=== PATIENT | female | born 1985 | race Caucasian/White ===

== ENCOUNTER 2018-03-01 11:19 | Emergency (ER) | payer OTHER ==
[~2018-03-01] VITALS: Ht 165.1 cm; Wt 68.0 kg
[~2018-03-01 11:19] MED LIST: ADVAIR; ALBU90OI INH; ALBU90OI61 INH; AMOX500 PO; ANTOXYBENA BOTHEARS; AZIT250 PO; Amoxicillin500 MG PO; BENZ100A PO; BUPR75 PO; BUSP10 PO; BUSP15 PO; Bactrim Ds Tab1 EACH PO; CEPH500 PO; CITA20 PO; CLON1 PO; CYCL10 PO; DULO30 PO; EPIN.3I IM; EPIPEN 2-P0.3 MG/0.3 IJ; ESCI20 PO; FLUSAL2505 INH; GUAI600T33 PO; HYDACE5 PO; HYDHCL25 PO; IBUP800 PO; KETO10 PO; LEVSOD50 PO; LEVSOD75 PO; NAPR500 PO; NICO14TP TOP; Naprosyn500 MG PO; Norco 5-325 Ta1 EACH PO; PRED10 PO; PROCODE120 PO; PROM25 PO; PSEU120ER PO; Prilosec Otc20 MG PO; Pyridium200 MG PO; QUET100 PO; RXCODGUASY PO; RXPROM25 PO; SPACE CHAMBER1 EACH MC; THYR60 PO; Ultram50 MG PO; VARE1 PO; VICODIN 5-3001 EACH PO; ZOLP10 PO; Zithromax250 MG PO
== END 2018-03-01 12:12 | disposition home or self-care (01) ==
LOC: ER 11:19
DX: M79.661 Pain in right lower leg (principal); F17.210 Nicotine dependence, cigarettes, uncomplicated; Z91.030 Bee allergy status; Z88.5 Allergy status to narcotic agent; Z79.899 Other long term (current) drug therapy
CPT/HCPCS: 93971; 99284

== ENCOUNTER 2018-09-24 13:11 | Emergency (ER) | payer OTHER ==
[~2018-09-24] VITALS: Ht 162.6 cm; Wt 77.1 kg
[2018-09-24] MEDS ORDERED: Norco 5-325 Ta1 EACH PO (15:50)
== END 2018-09-24 16:03 | disposition home or self-care (01) ==
LOC: ER 13:11
DX: J11.1 Influenza due to unidentified influenza virus with other respiratory manifestations (principal); J45.909 Unspecified asthma, uncomplicated; F41.9 Anxiety disorder, unspecified; F17.210 Nicotine dependence, cigarettes, uncomplicated
CPT/HCPCS: 71046; 99283-25

== ENCOUNTER → 2019-06-19 | Outpatient (CLI) | payer OTHER | END | disposition home or self-care (01) | LOC: LAB EV 09:38 → LAB SHORT 09:38 | DX: K13.70 Unspecified lesions of oral mucosa (principal) | CPT/HCPCS: 87529 ==

== ENCOUNTER → 2020-02-03 | Outpatient (CLI) | payer OTHER ==
[2020-02-04 11:10] LABS: Candida species (DNA Probe) Negative (NEGATIVE); G. vaginalis (DNA Probe) Negative (NEGATIVE); T. vaginalis (DNA Probe) Negative (NEGATIVE)
[2020-02-05 15:07] LABS: HPV 16 Negative (Negative); HPV 18 Negative (Negative); HPV OTHER HR TYPES Negative (Negative)
== END ==
LOC: LAB SHORT 10:50 → LAB 10:50
PROVIDERS: Internal Medicine
DX: Z01.419 Encounter for gynecological examination (general) (routine) without abnormal findings (principal)
CPT/HCPCS: 87480; 87510; 87660

== ENCOUNTER 2020-03-07 11:40 | Emergency (ER) | payer OTHER ==
[~2020-03-07] VITALS: Ht 160 cm; Wt 90.7 kg
[2020-03-07 12:07] LABS: BASOPHILS ABSOLUTE AUTO 0.07 K/mm3 (0.00-0.23); BASOPHILS PERCENT AUTO 1 % (0-2); EOSINOPHILS PERCENT AUTO 0 % (0-6); Hematocrit 42.2 % (33.0-51.0); Hemoglobin 13.8 g/dL (11.5-16.0); IMMATURE GRAN ABSOLUTE AUTO 0.02 K/mm3 (0.00-0.10); IMMATURE GRAN PERCENT AUTO 0 % (0-1); LYMPHOCYTES ABSOLUTE AUTO 4.22 K/mm3 (0.84-5.20); LYMPHOCYTES PERCENT AUTO 38 % (21-46); MONOCYTES ABSOLUTE AUTO 1.22 K/mm3 (0.16-1.47); MONOCYTES PERCENT AUTO 11 % (4-13); Mean Corpuscular HGB 31.4 pg (26.0-34.0); Mean Corpuscular HGB Conc 32.7 g/dL (31.5-36.5); Mean Corpuscular Volume 96 fL (80-100); NEUTROPHILS ABSOLUTE AUTO 5.71 K/mm3 (1.96-9.15); NEUTROPHILS PERCENT AUTO 51 % (41-73); Platelet Count 145 K/mm3 (150-400); RDW Standard Deviation 46.2 fL (35.1-46.3); White Blood Cell Count 11.24 K/mm3 (4.00-11.30)
[2020-03-07 12:08] LABS: Mean Platelet Volume 13.3 fL (9.1-12.4)
[2020-03-07 12:22] LABS: Source, Urine Clean Catch
[2020-03-07 12:25] LABS: Alanine Aminotransfer (ALT/SGP 58 U/L (12-78); Alk Phos 111 U/L (50-136); Anion Gap 5 mmol/L (6-16); Aspartate Aminotrans (AST/SGOT 35 U/L (12-37); Bilirubin, Total 0.4 mg/dL (0.1-1.0); Blood Urea Nitrogen 13 mg/dL (8-24); CO2, Blood 25 mmol/L (21-32); Calcium, Blood 8.4 mg/dL (8.5-10.1); Chloride, Blood 107 mmol/L (98-108); Creatinine, Blood 0.65 mg/dL (0.40-1.00); Glomerular Filtration Rate >60 (60-); Glucose, Blood 122 mg/dL (70-99); Potassium, Blood 3.9 mmol/L (3.5-5.5); Sodium, Blood 137 mmol/L (136-145)
[2020-03-07 12:48] LABS: Appearance, Urine Hazy (Clear); Bilirubin, Urine Neg (Neg); Blood, Urine Trace (Neg); Color, Urine Yellow (P-Yellow); Glucose Qualitative, Urine 1+ (Neg); Ketones, Urine Neg (Neg); Leukocyte Esterase, Urine Neg (Neg); Nitrite, Urine Neg (Neg); Protein, Urine Trace (Neg); Urobilinogen, Urine NORM (Normal)
[2020-03-07 12:50] LABS: Bacteria Many /hpf; Red Blood Cells, Urine 0-2 /hpf (0-2); Squamous Epithelial Cells Many /hpf (Few); White Blood Cells, Urine 0-2 /hpf (0-5)
[2020-03-07] MEDS ORDERED: ONDA4ODT MM (13:16)
[2020-03-07] MEDS ORDERED: IBUP800 PO (13:16)
== END 2020-03-07 13:24 | disposition home or self-care (01) ==
LOC: ER 11:40
PROVIDERS: Emergency Medicine; Physician Assistant
DX: R10.13 Epigastric pain (principal); F17.210 Nicotine dependence, cigarettes, uncomplicated; Z91.030 Bee allergy status; Z88.5 Allergy status to narcotic agent; Z88.8 Allergy status to other drugs, medicaments and biological substances; Z79.899 Other long term (current) drug therapy
CPT/HCPCS: 36415; 74177; 80053; 81001; 83690; 85025; 87086; 96374-59; 96375-59; 99284-25; J1885; J2405; Q9967

== ENCOUNTER 2023-01-04 07:21 | Emergency (ER) | payer OTHER ==
[~2023-01-04] VITALS: Ht 162.6 cm; Wt 68.0 kg
[~2023-01-04 07:21] MED LIST changes: +CLOBET30L TOP; +FLUC150A PO; +ONDA4ODT MM
[2023-01-04] MEDS ORDERED: ONDA4ODT MM (08:32)
[2023-01-04] MEDS ORDERED: IBUP600 PO (08:32)
[2023-01-04] MEDS ORDERED: KETO15TC TOP (08:45)
[2023-01-04 09:01] VITALS: BP 128/100
== END 2023-01-04 08:54 | disposition home or self-care (01) ==
LOC: ER 07:21
DX: J02.9 Acute pharyngitis, unspecified (principal); L30.4 Erythema intertrigo; B37.2 Candidiasis of skin and nail; F17.210 Nicotine dependence, cigarettes, uncomplicated
CPT/HCPCS: 99283; A9270; J1100

== ENCOUNTER 2023-09-27 13:27 | Emergency (ER) | payer OTHER ==
[~2023-09-27] VITALS: Ht 162.6 cm; Wt 68.0 kg
[~2023-09-27 13:27] MED LIST changes: +IBUP600 PO; +KETO15TC TOP
[2023-09-27 13:33] VITALS: BP 135/94
[2023-09-27] MEDS ORDERED: IBUP600 PO (15:21)
== END 2023-09-27 15:26 | disposition home or self-care (01) ==
LOC: ER 13:27
DX: S40.021A Contusion of right upper arm, initial encounter (principal); F17.210 Nicotine dependence, cigarettes, uncomplicated; Z88.5 Allergy status to narcotic agent; Z88.8 Allergy status to other drugs, medicaments and biological substances; Z91.030 Bee allergy status; W22.01XA Walked into wall, initial encounter; Y93.02 Activity, running
CPT/HCPCS: 73060; 99283-25; A9270

== ENCOUNTER 2023-10-14 21:38 | Inpatient (IN) | payer OTHER ==
[~2023-10-14] VITALS: Ht 157.5 cm; Wt 60.8 kg
[~2023-10-14 21:38] MED LIST changes: +Enoxaparin 40 MG/0.4 ML SYR SC SCH
[2023-10-14 22:05] LABS: Calcium, Ionized (POC) 1.28 mmol/L (1.10-1.46); Chloride (POC) 111 mmol/L (98-108); Creatinine (POC) 0.7 mg/dL (0.6-1.0); Glucose (ISTAT POC) >700 mg/dL (70-99); Hemoglobin (POC) 12.6 g/dL (12.0-16.0); Potassium (POC) 5.8 mmol/L (3.5-5.5); Sodium (POC) 135 mmol/L (135-148); Total CO2 (POC) 7 mmol/L (21-32)
[2023-10-14] MEDS ORDERED: Lactated Ringer's 1,000 ML IV ONE (22:05)
[2023-10-14] MEDS ORDERED: Insulin Human Regular 100 UNIT in NS 100 ML IV SCH (22:05)
[2023-10-14 22:08] LABS: Base Excess Venous -28.6 mmol/L; Bicarbonate Venous 6.3 mmol/L (24.0-30.0); PCO2 Venous 19.7 mmHg (38-42); pH Blood Venous 6.92 (7.34-7.37)
[2023-10-14 22:10] LABS: Source, Urine Foley catheter
[2023-10-14 22:15] LABS: Bilirubin, Urine Neg (Neg); Blood, Urine 1+ (Neg); Glucose Qualitative, Urine 4+ (Neg); Ketones, Urine 4+ (Neg); Leukocyte Esterase, Urine Neg (Neg); Nitrite, Urine Neg (Neg); Protein, Urine 2+ (Neg); Specific Gravity, Urine 1.015 (1.003-1.022); Urobilinogen, Urine NORM (Normal)
[2023-10-14 22:15] LABS: Hematocrit 39.2 % (33.0-51.0); Hemoglobin 12.1 g/dL (11.5-16.0); Mean Corpuscular HGB 32.1 pg (26.0-34.0); Mean Corpuscular HGB Conc 30.9 g/dL (31.5-36.5); Mean Corpuscular Volume 104 fL (80-100); Mean Platelet Volume 13.9 fL (9.1-12.4); Platelet Count 232 K/mm3 (150-400); RDW Standard Deviation 49.5 fL (35.1-46.3); Red Blood Cell Count 3.77 M/mm3 (3.80-5.20); White Blood Cell Count 24.41 K/mm3 (4.00-11.30)
[2023-10-14 22:24] LABS: Appearance, Urine Clear (Clear); Color, Urine Pale Yellow (P-Yellow)
[2023-10-14 22:32] LABS: Amorphous Light (0-Heavy); Bacteria Rare /hpf; Red Blood Cells, Urine 0-2 /hpf (0-2); Squamous Epithelial Cells Few /hpf (Few); White Blood Cells, Urine Not Seen /hpf (0-5)
[2023-10-14 22:34] LABS: BAND PERCENT MAN 22 % (0-8); BASOPHILS PERCENT MAN 0 % (0-2); EOSINOPHILS PERCENT MAN 0 % (0-6); LYMPHOCYTES ABSOLUTE MAN 1.95 K/mm3 (0.84-5.20); LYMPHOCYTES PERCENT MAN 8 % (21-46); MONOCYTES ABSOLUTE MAN 1.95 K/mm3 (0.16-1.47); MONOCYTES PERCENT MAN 8 % (4-13); SEG NEUTROPHILS PERCENT MAN 62 % (41-73); TOTAL CELLS COUNTED 100
[2023-10-14 23:14] LABS: Albumin/Globulin Ratio 0.6 (0.8-1.8); Beta-hydroxybutyrate 104.9 mg/dL (0.2-2.8); Bilirubin, Total 0.5 mg/dL (0.1-1.0); Bun/Creatinine Ratio 22.5 (12.0-20.0); Calcium, Blood 9.6 mg/dL (8.5-10.1); Creatinine, Blood 0.85 mg/dL (0.40-1.00); Globulin, Blood 5.1 g/dL (2.2-4.0); Potassium, Blood 4.9 mmol/L (3.5-5.5); Total Protein, Blood 8.1 g/dL (6.4-8.2)
[2023-10-14] MEDS ORDERED: Ondansetron HCl 2 MG / ML 2ML Vial IV PRN (23:45)
[2023-10-14] MEDS ORDERED: FLU VACC QS2023-24(6MOS UP)/PF 60 MCG/0.5 ML SYRINGE IM ONE (23:50)
[2023-10-14] MEDS ORDERED: Sodium Bicarb 8.4% Inj 100 MEQ in Sodium Chloride 0.45% 1,000 ML IV SCH (23:55)
[2023-10-15] VITALS (51 sets, daily range): BP systolic 83–146; BP diastolic 53–90
[2023-10-15 00:07] LABS: Bun/Creatinine Ratio 23.7 (12.0-20.0); Calcium, Blood 9.7 mg/dL (8.5-10.1); Creatinine, Blood 0.76 mg/dL (0.40-1.00); Potassium, Blood 4.3 mmol/L (3.5-5.5)
--- NOTE | 2023-10-15 00:30 | NUR ---
CARE ASSUMPTION PT ARRIVED FROM ER AND WAS TRANSFERED TO ICU BED BY STAFF. UPON ARRIVAL PT IS MINIMALLY RESPONSIVE MUMBLING IN RESPONSE TO QUESTIONS AND ONLY BRIEFLY OPENING HER EYES. MONITOR SHOWING ST 140. BP WNL AND STABLE. PT AFEBRILE. INSULIN GTT INFUSING. PT HAS VERY EXCORIATED JEFFRY-AREA AND BUTTOCKS, PICS TAKEN AND CREAM APPLIED. K[place]ALLS RESP NOTED W CLEAR LS. CARE ASSUMED AT THIS TIME.
[2023-10-15] MEDS ORDERED: Sodium Bicarb 8.4% 1 MEQ/ML 50 ML Vial IV ONE (00:35)
[2023-10-15] MEDS ORDERED: Insulin Human Regular 100 UNIT in NS 100 ML IV SCH (00:35)
[2023-10-15] MEDS ORDERED: Enoxaparin 40 MG/0.4 ML SYR SC SCH (01:44)
[2023-10-15] MEDS ORDERED: NS 250 ML IV PRN (01:50)
[2023-10-15 02:09] LABS: Glucose, Blood 655 mg/dL (70-99)
[2023-10-15 04:45] LABS: U Amphetamine Screen Not Detected; U Barbituate Screen Not Detected; U Benzodiazapine Screen Not Detected; U Buprenorphine Screen Not Detected; U Cannabinoids Screen Not Detected; U Cocaine Screen Not Detected; U Methadone Screen Not Detected; U Methamphetamine Screen Not Detected; U Opiates Screen Not Detected; U Oxycodone Screen Not Detected; U Phencyclidine Screen Not Detected
--- NOTE | 2023-10-15 06:25 | NUR ---
SHOTBLAST OPERATOR SUMMARY PT HAS REMAINED VERY DISORIENTED THIS SHIFT BUT HER SPEECH HAS IMPROVED T/O THE NIGHT SHE IS NOW MAKING SENTANCES BUT DOES NOT KNOW WHERE SHE IS OR WHY SHE IS HERE. PT DOES FOLLOW COMMANDS WHEN PROMPTED. PT'S MONITOR SHOWING ST 130'S-140 THIS SHIFT. BP WNL AND STABLE. PT MAINTAINING SPO2 >94% ON RM AIR THIS SHIFT. PT'S CBGS <300 THIS AM AND METABOLIC PANEL SENT TO LAB AND IS CURRENTLY PENDING. INSULIN GTT AT 3 UNITS/HR AND NABICARB RUNNING AT 125 ML/HR. PT NOTED TO HAVE SEVERE EXCORIATION T/O HER JEFFRY-AREA AND BUTTOCK SO ORDER FOR NYASTATIN OBTAINED, PICS IN THE CHART. PT NOTED TO HAVE NO TEETH OR DENTURES ON ARRIVAL. MCCOLLUM PATENT AND DRAINED 2500ML CLEAR YELLOW URINE THIS SHIFT. WILL REPORT TO ONCOMING SUSI
[2023-10-15 06:26] LABS: Hematocrit 31.7 % (33.0-51.0); Hemoglobin 10.9 g/dL (11.5-16.0); Mean Corpuscular HGB 32.4 pg (26.0-34.0); Mean Corpuscular HGB Conc 34.4 g/dL (31.5-36.5); Mean Platelet Volume 12.7 fL (9.1-12.4); Platelet Count 149 K/mm3 (150-400); RDW Coefficient Variation 12.3 % (11.7-14.2); RDW Standard Deviation 42.5 fL (35.1-46.3); Red Blood Cell Count 3.36 M/mm3 (3.80-5.20)
[2023-10-15 06:34] LABS: Mean Corpuscular Volume 94 fL (80-100)
[2023-10-15 07:09] LABS: Albumin, Blood 2.4 g/dL (3.4-5.0); Albumin/Globulin Ratio 0.5 (0.8-1.8); Bilirubin, Total 0.5 mg/dL (0.1-1.0); Bun/Creatinine Ratio 22.2 (12.0-20.0); Calcium, Blood 9.6 mg/dL (8.5-10.1); Creatinine, Blood 0.59 mg/dL (0.40-1.00); Globulin, Blood 4.5 g/dL (2.2-4.0); Potassium, Blood 2.6 mmol/L (3.5-5.5); Total Protein, Blood 6.9 g/dL (6.4-8.2)
[2023-10-15] MEDS ORDERED: Potassium Chloride 40 MEQ in NS 250 ML IV ONE ×3 (07:25→13:55)
--- NOTE | 2023-10-15 08:05 | NUR ---
AM NOTE... ASSUMED CARE OF PT AT 0700. PT WILL OPEN HER EYES WITH VERBAL STIMUILI BUT QUICKLY WILL CLOSE THEM AGAIN. PT MUMBLES WHEN ASKED HER NAME AND . SHE IS IN SINUS TACH IN THE 130'S-140'S BP IS SOFT BUT STABLE WITH MAPS >65. NO EDEMA IS NOTED ON THIS ASSESSMENT. L/S CLEAR T/O DIM IN THE BASES, SHE IS ON RA WITH O2 SATS>92%. BT PRESENT AND HYPOACTIVE, ABD IS TENDER TO PALPATION. MCCOLLUM IS PATENT AND DRAINING YELLOW URINE TO GRAVITY. THE INSULIN DRIP WAS RUNNING AT 3U/HR WITH LAST CBG WAS 233. THE INSULIN DRIP WAS STOPPED PER PROVIDER ORDERS AND 40MEQ OF KCL WAS STARTED. SODIUM BICARB IN 1/2 NS IS RUNNING AT 125MLS/HR. WILL CONTINUE TO MONITOR.
[2023-10-15] MEDS ORDERED: Miconazole Nitrate 2% 85 GM PWD TOP SCH (09:00)
[2023-10-15] MEDS ORDERED: NS KCl 20mEq 1,000 ML IV SCH (09:00)
[2023-10-15 10:15] LABS: Bun/Creatinine Ratio 20.7 (12.0-20.0); Calcium, Blood 9.3 mg/dL (8.5-10.1); Creatinine, Blood 0.63 mg/dL (0.40-1.00); Magnesium, Blood 1.8 mg/dL (1.6-2.4); Potassium, Blood 3.2 mmol/L (3.5-5.5)
[2023-10-15 10:33] LABS: BAND PERCENT MAN 23 % (0-8); BASOPHILS PERCENT MAN 0 % (0-2); EOSINOPHILS PERCENT MAN 0 % (0-6); LYMPHOCYTES ABSOLUTE MAN 0.81 K/mm3 (0.84-5.20); LYMPHOCYTES PERCENT MAN 19 % (21-46); METAMYELOCYTE ABSOLUTE MAN 0.08 K/mm3 (0.00-0.00); METAMYELOCYTE PERCENT MAN 2 % (0-0); MONOCYTES ABSOLUTE MAN 0.25 K/mm3 (0.16-1.47); MONOCYTES PERCENT MAN 6 % (4-13); MYELOCYTE ABSOLUTE MAN 0.04 K/mm3 (0.00-0.00); MYELOCYTE PERCENT MAN 1 % (0-0); NEUTROPHILS ABSOLUTE MAN 3.05 K/mm3 (1.96-9.15); PLASMA CELL ABSOLUTE MAN 0.04 K/mm3 (0.00-0.00); PLASMA CELLS PERCENT MAN 1 % (0-0); SEG NEUTROPHILS PERCENT MAN 48 % (41-73); TOTAL CELLS COUNTED 100
[2023-10-15 10:36] LABS: Base Excess Venous -16.2 mmol/L; Bicarbonate Venous 13.4 mmol/L (24.0-30.0); PCO2 Venous 23.4 mmHg (38-42)
[2023-10-15 10:37] LABS: pH Blood Venous 7.27 (7.34-7.37)
[2023-10-15] MEDS ORDERED: Lactated Ringer's 1,000 ML IV SCH (11:45)
[2023-10-15 12:12] LABS: Base Excess Venous -20.9 mmol/L; Bicarbonate Venous 10.7 mmol/L (24.0-30.0); PCO2 Venous 16.8 mmHg (38-42)
[2023-10-15 12:13] LABS: pH Blood Venous 7.22 (7.34-7.37)
[2023-10-15 12:36] LABS: Albumin, Blood 2.3 g/dL (3.4-5.0); Anion Gap 19 mmol/L (6-16); Blood Urea Nitrogen 14 mg/dL (8-24); CO2, Blood 8 mmol/L (21-32); Calcium, Blood 9.7 mg/dL (8.5-10.1); Chloride, Blood 126 mmol/L (98-108); Creatinine, Blood 0.67 mg/dL (0.40-1.00); Glomerular Filtration Rate 114 (60-); Glucose, Blood 295 mg/dL (70-99); Phosphorus, Blood 1.4 mg/dL (2.5-4.9); Potassium, Blood 3.7 mmol/L (3.5-5.5); Sodium, Blood 153 mmol/L (136-145)
[2023-10-15] MEDS ORDERED: Potassium Phosphate Dibasic 20 MM in Dextrose 5% 500 ML IV SCH (14:50)
[2023-10-15 15:01] LABS: Albumin, Blood 2.2 g/dL (3.4-5.0); Anion Gap 13 mmol/L (6-16); Blood Urea Nitrogen 13 mg/dL (8-24); Bun/Creatinine Ratio 20.1 (12.0-20.0); CO2, Blood 12 mmol/L (21-32); Calcium, Blood 9.7 mg/dL (8.5-10.1); Chloride, Blood 129 mmol/L (98-108); Creatinine, Blood 0.65 mg/dL (0.40-1.00); Glomerular Filtration Rate 115 (60-); Glucose, Blood 243 mg/dL (70-99); Phosphorus, Blood 0.7 mg/dL (2.5-4.9); Potassium, Blood 3.6 mmol/L (3.5-5.5); Sodium, Blood 154 mmol/L (136-145)
[2023-10-15] MEDS ORDERED: D5W-1/2NS 1,000 ML IV SCH (15:35)
[2023-10-15] MEDS ORDERED: CefTRIAXone Sodium 1,000 MG in NS 50 ML IV SCH (16:00)
[2023-10-15] MEDS ORDERED: Azithromycin 500 MG in NS 250 ML IV SCH (16:00)
[2023-10-15] MEDS ORDERED: Fluconazole 100MG/Iso-Sod 50ML 50 ML IV SCH (18:00)
[2023-10-15 18:32] LABS: Anion Gap 10 mmol/L (6-16); Blood Urea Nitrogen 11 mg/dL (8-24); Bun/Creatinine Ratio 17.1 (12.0-20.0); CO2, Blood 15 mmol/L (21-32); Calcium, Blood 9.4 mg/dL (8.5-10.1); Chloride, Blood 127 mmol/L (98-108); Creatinine, Blood 0.64 mg/dL (0.40-1.00); Glomerular Filtration Rate 115 (60-); Glucose, Blood 319 mg/dL (70-99); Phosphorus, Blood 1.5 mg/dL (2.5-4.9); Potassium, Blood 3.6 mmol/L (3.5-5.5); Sodium, Blood 152 mmol/L (136-145)
--- NOTE | 2023-10-15 19:00 | NUR ---
CARE ASSUMPTION DURING BEDSIDE SHIFT REPORT Mat GONG RN THE PT IS LYING IN BED VERY LETHARGIC APPEARING VERY ILL. PT'S MONITOR SHOWING ST 130'S. BP WNL AND STABLE. SPO2 >94% ON RM AIR. PT HAS INSULIN GTT INFUSING AT 7 UNITS/HR, D5 1/2NS INFUSING AT 200ML/HR. K-PHOS INFUSING AND WELL AZITHROMYCIN. PT HAS MCCOLLUM THAT IS PATENT AND DRAINING CLEAR YELLOW URINE. CARE ASSUMED AT THIS TIME.
--- NOTE | 2023-10-15 19:06 | NUR ---
SHIFT SUMMARY... PT CONTINUES TO BE ON THE INSULIN DRIP, IT IS RUNNING AT 7U/HR, D5 1/2 NS IS RUNNING AT 200MLS/HR. PT'S TMAX THIS SHIFT WAS 100.4. SHE WAS TAKEN TO CT FOR A CT R/O PE. SHE WAS STARTED ON ABX PER ORDERS THIS SHIFT. PT CONTINUES TO BE A&O TO SELF AND PLACE BUT SHE KEEPS ASKING TO GO "HAVE A SMOKE" AND WHY SHE CAN'T SMOKE IN HER ROOM. PT EDUCATED ON THIS FACILITIES NO SMOKING POLICY AND THE DANGERS OF SMOKING WITH OXYGEN IN THE ROOM. NO LIGHTERS/VAPES/SMOKES NOTED WITH THE PT OR IN HER BELONGINGS. CHUN IS PATENT AND DRAINING TO GRAVITY. WILL CONTINUE TO MONITOR UNTIL REPORT IS GIVEN TO ONCOMING RN.
[2023-10-15 22:41] LABS: Albumin, Blood 1.9 g/dL (3.4-5.0); Anion Gap 7 mmol/L (6-16); Blood Urea Nitrogen 10 mg/dL (8-24); Bun/Creatinine Ratio 16.6 (12.0-20.0); CO2, Blood 18 mmol/L (21-32); Calcium, Blood 8.7 mg/dL (8.5-10.1); Chloride, Blood 128 mmol/L (98-108); Glomerular Filtration Rate 117 (60-); Glucose, Blood 248 mg/dL (70-99); Phosphorus, Blood 1.7 mg/dL (2.5-4.9); Sodium, Blood 153 mmol/L (136-145)
[2023-10-15] MEDS ORDERED: Ketorolac Tromethamine 30mg Vial IV ONE (22:55)
[2023-10-15] MEDS ORDERED: Sodium Phosphate 20 MM in Dextrose 5% 500 ML IV ONE (23:30)
[2023-10-16] VITALS (21 sets, daily range): BP systolic 89–130; BP diastolic 49–90
--- NOTE | 2023-10-16 00:37 | NUR ---
FEVER PROVIDER CONTACTED REGARDING TEMP OF 101.2 AND ONE TIME DOSE OF TORADOL ORDERED. PT'S TEMP STILL ELEVATED NOW 102.4 FAN AND COLD WASH CLOTHES ON PT WHILE THIS RN WAITS FOR PROVIDER TO RETURN PHONE CALL.
[2023-10-16] MEDS ORDERED: Acetaminophen 325 MG TABLET PO PRN (00:50)
[2023-10-16 02:39] LABS: Albumin, Blood 1.7 g/dL (3.4-5.0); Anion Gap 7 mmol/L (6-16); Blood Urea Nitrogen 10 mg/dL (8-24); Bun/Creatinine Ratio 18.5 (12.0-20.0); CO2, Blood 18 mmol/L (21-32); Calcium, Blood 8.2 mg/dL (8.5-10.1); Chloride, Blood 129 mmol/L (98-108); Creatinine, Blood 0.54 mg/dL (0.40-1.00); Glomerular Filtration Rate 120 (60-); Glucose, Blood 118 mg/dL (70-99); Phosphorus, Blood 2.5 mg/dL (2.5-4.9); Potassium, Blood 3.3 mmol/L (3.5-5.5); Sodium, Blood 154 mmol/L (136-145)
--- NOTE | 2023-10-16 02:58 | NUR ---
0200 LABS PT'S 0200 LABS SHOW K OF 3.3 HOWEVER POTASSIUM CHLORIDE STILL INFUSING.
--- NOTE | 2023-10-16 06:19 | NUR ---
WELDER PRODUCTION LINE ARC SUMMARY PT BEGAN SHIFT LETHARGIC NOT ONLY MUMBLING WORDS BUT THE SHIFT PROGRESSED SHE BECAME FULLY ALERT AND COMMUNICATING APPROPRIATELY. PT REMAINED ON INSULIN GTT W D5 1/2NS INFUSING AT 200ML/HR THIS SHIFT. PT'S 2199 LABS SHOWED LOW K AND PHOS SO PROVIDER CONTACTED WHO ORDERED 60 MEQ K AND 20MM NAPHOS. PT WAS FEBRILE THIS SHIFT W PEAK TEMP OF 102.4 WHICH RESOLVED AFTER SHE RECIEVED TYLENOL. MONITOR SHOWED ST 130'S AT START OF THE SHIFT BUT AFTER HER TEMP WAS BROUGHT DOWN SHE REMAINED ST 100'S. BP TRENDING DOWN THIS SHIFT WHICH HAS BEEN A CONCERN THE PT HAS RECIEVED A SIGNIFICANT AMOUNT OF FLUID THIS SHIFT. SPO2 >92% ON RM AIR. PT'S MCCOLLUM PATENT AND DRAINED 900ML CLEAR YELLOW URINE THIS SHIFT. PT HAD ONE BM THIS SHIFT. WILL REPORT TO MAEGAN GOLDMAN
[2023-10-16 06:31] LABS: Albumin, Blood 1.6 g/dL (3.4-5.0); Anion Gap 6 mmol/L (6-16); Blood Urea Nitrogen 13 mg/dL (8-24); CO2, Blood 17 mmol/L (21-32); Calcium, Blood 7.7 mg/dL (8.5-10.1); Chloride, Blood 127 mmol/L (98-108); Creatinine, Blood 0.57 mg/dL (0.40-1.00); Glomerular Filtration Rate 118 (60-); Glucose, Blood 182 mg/dL (70-99); Phosphorus, Blood 1.9 mg/dL (2.5-4.9); Potassium, Blood 3.6 mmol/L (3.5-5.5); Sodium, Blood 150 mmol/L (136-145)
[2023-10-16] MEDS ORDERED: Potassium Phosphate Dibasic 30 MM in Dextrose 5% 500 ML IV STA (07:02)
--- NOTE | 2023-10-16 07:44 | NUR ---
AM NOTE... ASSUMED CARE OF PT AT 0700. PT IS CURRENTLY A&Ox4, SHE IS UP IN THE BED ON HER PHONE. PLEASENT AND COOPERATIVE WITH CARE AT THIS TIME. SHE IS IN SR IN THE 90'S BP IS SOFT BUT STABLE WITH MAPS>65. SHE IS ON RA WITH O2 SATS>95% L/S CLEAR T/O COARSE ON THE RLL. BT PRESENT AND HYPOACTIVE, PT IS VERY ANXIOUS TO EAT BREAKFAST. HER MOUTH IS NOTED TO HAVE A WHITE FILM OVER HER TONGUE AND HER LIPS ARE DRY AND CRACKED. PROVIDER AWARE AWAITING ORDERS FOR NYSTATIN SWISH/SWALLOW. INSULIN DRIP IS RUNNING AT 5U/HR, D5 1/2NS IS RUNNING AT 200MLS/HR. WILL CONTINUE TO MONITOR.
[2023-10-16] MEDS ORDERED: Thiamine HCl 100 MG Tab PO SCH (08:00)
[2023-10-16] MEDS ORDERED: Folic Acid 1 MG TAB PO SCH (08:00)
[2023-10-16] MEDS ORDERED: Lidocaine 2% Viscous Soln 20 ML,Nystatin 100,000 Unit/ml Susp 20 ML,Mag Hydrox/Al Hydro... MT PRN (08:15)
[2023-10-16] MEDS ORDERED: Insulin Human Lispro 100 Units/ML 3ML Syringe SC SCH ×3 (08:30→21:00)
[2023-10-16] MEDS ORDERED: CefTRIAXone Sodium 2,000 MG in NS 100 ML IV SCH (09:00)
[2023-10-16] MEDS ORDERED: Insulin Glargine-Yfgn 100 Unit/mL 3 ML SYR SC ONE (09:00)
[2023-10-16 10:25] LABS: Albumin, Blood 1.7 g/dL (3.4-5.0); Anion Gap 7 mmol/L (6-16); Blood Urea Nitrogen 14 mg/dL (8-24); Bun/Creatinine Ratio 23.5 (12.0-20.0); CO2, Blood 19 mmol/L (21-32); Chloride, Blood 121 mmol/L (98-108); Glomerular Filtration Rate 117 (60-); Glucose, Blood 302 mg/dL (70-99); Phosphorus, Blood 2.3 mg/dL (2.5-4.9); Potassium, Blood 3.2 mmol/L (3.5-5.5); Sodium, Blood 147 mmol/L (136-145)
[2023-10-16] MEDS ORDERED: Insulin Human Lispro 100 Units/ML 3ML Syringe SC ONE (12:00)
--- NOTE | 2023-10-16 14:15 | NUR ---
Pt. is awake in bed when she welcomes my visit. Pt. is pleasant and mildly unsettled about a new-to-her diabetes diagnosis. Facilitate a life review. Listen with empathy, interest, and a calming presence. Pt. displays evidence of trust in this gun club manager. Considered matters of ritesh and belief. Prayed with Pt. Pt. verbalized gratitude for the spiritual care visit and welcomed this gun club manager to return.
[2023-10-16 14:16] LABS: Albumin, Blood 1.6 g/dL (3.4-5.0); Anion Gap 8 mmol/L (6-16); Blood Urea Nitrogen 17 mg/dL (8-24); Bun/Creatinine Ratio 26.5 (12.0-20.0); CO2, Blood 17 mmol/L (21-32); Calcium, Blood 7.7 mg/dL (8.5-10.1); Chloride, Blood 121 mmol/L (98-108); Creatinine, Blood 0.64 mg/dL (0.40-1.00); Glomerular Filtration Rate 115 (60-); Glucose, Blood 288 mg/dL (70-99); Phosphorus, Blood 1.9 mg/dL (2.5-4.9); Potassium, Blood 3.6 mmol/L (3.5-5.5); Sodium, Blood 146 mmol/L (136-145)
[2023-10-16] MEDS ORDERED: Potassium Phosphate Dibasic 30 MM in Dextrose 5% 500 ML IV ONE (16:00)
--- NOTE | 2023-10-16 18:23 | NUR ---
SHIFT SUMMARY... NO ACUTE NEGATIVE CHANGES NOTED THIS SHIFT. PT'S VS HAVE BEEN STABLE. SHE HAS BEEN OFF THE INSULIN DRIP SINCE 1030. ACHS CBG CHECKS PER ORDERS. THE PT WAS ABLE TO WALK TO THE TOILET AND VOID AFTER HER MCCOLLUM WAS D/C'd WNL. THE PT ALSO HAD A SHOWER TODAY. THIS RN NOTED BLOODY DISCHARGE FROM THE PT'S VAGINAL AREA, PER THE PT SHE THOUGHT SHE STARTED HER PERIOD. THE PT'S FAMILY WAS AT THE BEDSIDE THIS AFTERNOON AND BROUGHT THE PT SOME PERSONAL BELONGINGS. WILL CONTINUE TO MONITOR UNTIL REPORT IS GIVEN TO ONCOMING RN.
[2023-10-16] MEDS ORDERED: Lactobacil 2-S.Thermo-Bifido 1 1 Cap PO SCH (21:00)
[2023-10-16 22:04] LABS: Albumin, Blood 1.7 g/dL (3.4-5.0); Anion Gap 11 mmol/L (6-16); Blood Urea Nitrogen 16 mg/dL (8-24); Bun/Creatinine Ratio 26.8 (12.0-20.0); CO2, Blood 14 mmol/L (21-32); Calcium, Blood 7.7 mg/dL (8.5-10.1); Chloride, Blood 118 mmol/L (98-108); Glomerular Filtration Rate 117 (60-); Glucose, Blood 360 mg/dL (70-99); Phosphorus, Blood 3.2 mg/dL (2.5-4.9); Potassium, Blood 4.4 mmol/L (3.5-5.5); Sodium, Blood 143 mmol/L (136-145)
[2023-10-17 02:50] VITALS: BP 105/59
[2023-10-17 03:06] LABS: Hematocrit 25.7 % (33.0-51.0); Hemoglobin 8.6 g/dL (11.5-16.0); Mean Corpuscular HGB 31.6 pg (26.0-34.0); Mean Corpuscular HGB Conc 33.5 g/dL (31.5-36.5); Mean Corpuscular Volume 95 fL (80-100); Mean Platelet Volume 12.9 fL (9.1-12.4); Platelet Count 123 K/mm3 (150-400); RDW Coefficient Variation 13.8 % (11.7-14.2); RDW Standard Deviation 47.1 fL (35.1-46.3); Red Blood Cell Count 2.72 M/mm3 (3.80-5.20)
[2023-10-17 03:23] LABS: Albumin, Blood 1.7 g/dL (3.4-5.0); Anion Gap 12 mmol/L (6-16); Blood Urea Nitrogen 17 mg/dL (8-24); Bun/Creatinine Ratio 27.7 (12.0-20.0); CO2, Blood 16 mmol/L (21-32); Calcium, Blood 8.1 mg/dL (8.5-10.1); Chloride, Blood 119 mmol/L (98-108); Creatinine, Blood 0.61 mg/dL (0.40-1.00); Glomerular Filtration Rate 117 (60-); Glucose, Blood 305 mg/dL (70-99); Phosphorus, Blood 2.6 mg/dL (2.5-4.9); Potassium, Blood 4.1 mmol/L (3.5-5.5); Sodium, Blood 147 mmol/L (136-145)
[2023-10-17 03:40] LABS: BAND PERCENT MAN 3 % (0-8); BASOPHILS PERCENT MAN 0 % (0-2); EOSINOPHILS PERCENT MAN 0 % (0-6); LYMPHOCYTES PERCENT MAN 25 % (21-46); MONOCYTES PERCENT MAN 4 % (4-13); NEUTROPHILS ABSOLUTE MAN 5.39 K/mm3 (1.96-9.15); SEG NEUTROPHILS PERCENT MAN 68 % (41-73); TOTAL CELLS COUNTED 100
--- NOTE | 2023-10-17 06:41 | NUR ---
NOC SHIFT SUMMARY PT ORIENTED X4, EMOTIONAL AT TIMES AND TEARFUL. STATES SHE WANTS TO GO HOME AND MISSES HER BOYFRIEND AND FAMILY. WEAK BUT STEADY, SBA TO TOILET. VOIDING ADEQUATELY. VSS PER PT TREND. PT STARTED HER PERIOD YESTERDAY PER REPORT AND WEARING A PULL UP BRIEF. TOOK PRN TYLENOL AND APPLIED HEATED BLANKET TO PELVIS FOR CRAMPS. PT REPORTS RELIEF. CBG IN 200S, LOW 300S, HOSPITALIST NOTIFIED AND CHANGED TO [facility] C[facility] FOR BLOOD SUGARS. PT EDUCATED ON DIET AND BLOOD SUGAR CONTROL. RETAINED APPROXIMATELY 50%. WILL BENEFIT FROM FURTHER EDUCATION. WILL PASS ON TO DAY RN
--- NOTE | 2023-10-17 07:00 | NUR ---
ASSUME CARE: I have assumed care of this patient.
[2023-10-17] MEDS ORDERED: Insulin Human Lispro 100 Units/ML 3ML Syringe SC SCH ×4 (07:30→16:30)
[2023-10-17 07:46] VITALS: BP 100/67
[2023-10-17] MEDS ORDERED: Insulin Glargine-Yfgn 100 Unit/mL 3 ML SYR SC SCH ×2 (09:00)
[2023-10-17] MEDS ORDERED: GuaiFENesin 600 MG TabCR PO SCH (09:00)
[2023-10-17] MEDS ORDERED: Nicotine 14 MG PATCH TOP SCH (09:00)
[2023-10-17 11:54] VITALS: BP 109/73
--- NOTE | 2023-10-17 12:08 | NUR ---
EDUCATION: Pt walked through steps of taking her blood sugar. She was assisted in performing the lancet and strip. Pt declined to give herself her own insulin, but was walked through the steps of preparing the insulin pen and administering.
[2023-10-17 12:43] LABS: CHOL/HDL RATIO 9.4; Cholesterol 170 mg/dL (50-200); HDL Cholesterol 18 mg/dL (>39); LDL/HDL RATIO 4.8; Low Density Lipoprotein Chol 86 mg/dL (0-110); Triglycerides 331 mg/dL (30-140); Very Low Density Lipoprot Chol 66 mg/dL (6-28)
[2023-10-17 16:15] VITALS: BP 112/83
[2023-10-17] MEDS ORDERED: Ondansetron HCl 2 MG / ML 2ML Vial ONE (18:19)
[2023-10-17] MEDS ORDERED: Ondansetron HCl 2 MG / ML 2ML Vial IV PRN (18:20)
--- NOTE | 2023-10-17 18:52 | NUR ---
SHIFT SUMMARY: Pt up in room throughout the day. She is plesant, A/O x 4. Pt up to shower with RICE FARMWORKER. She was provided education for taking her blood sugars and administering insulin. RN discussed insulin dosing. Pt requires reinforcement and will need continued support from her family. This RN spoke with case management who will reach out to pt's father regarding follow up support. Pt's PCP clinic in [place] was called and notified that she was in ICU per pt's request. One dose of PRN zofran given for nausea at dinner.
--- NOTE | 2023-10-17 19:54 | NUR ---
ADMIT PT TRANPORTED BY WHEELCHAIR, AMBULATED TO HOSPITAL BED. BELONGINGS AT BEDSIDE. EDUCATED ON FIRE SAFEY AND PREVENTION. CALL LIGHT WITHIN REACH AND BED IN LOWEST POSITION. ORIENTED PT TO ROOM AND CALL LIGHT. RECEIVED REPORT FROM DELONTE ICU NURSE. PT TRANSFERRED FROM ICU-14.
[2023-10-17 20:00] VITALS: BP 107/62
[2023-10-18 03:18] VITALS: BP 129/63
--- NOTE | 2023-10-18 04:30 | NUR ---
PT TRANSFERRED FROM ICU RM 14 THIS SHIFT. PT HAS HISTORY OF DEV DELAY. ALERT AND ORIENTED. CBG 196 AT HS. PT DENIES ANY N/V. DID HAVE SOME PELVIC PAIN DUE TO ABDOMINAL PERIOD CRAMPS. PT IS SBA TO BATHROOM. NO TELE, ROOM AIR. PT CALLS APPROPRAITELY FOR NEEDS. BED KEPT IN LOWEST POSITION WITH CALL LIGHT WITHIN REACH. NO ACUTE EVENTS OVERNIGHT. WILL CONTINUE TO MONITOR UNTIL END OF SHIFT.
[2023-10-18 07:25] VITALS: BP 126/72
[2023-10-18 07:40] LABS: BASOPHILS ABSOLUTE AUTO 0.03 K/mm3 (0.00-0.23); BASOPHILS PERCENT AUTO 1 % (0-2); EOSINOPHILS ABSOLUTE AUTO 0.09 K/mm3 (0.00-0.68); EOSINOPHILS PERCENT AUTO 2 % (0-6); Hematocrit 27.6 % (33.0-51.0); Hemoglobin 9.4 g/dL (11.5-16.0); IMMATURE GRAN ABSOLUTE AUTO 0.14 K/mm3 (0.00-0.10); IMMATURE GRAN PERCENT AUTO 3 % (0-1); LYMPHOCYTES ABSOLUTE AUTO 1.65 K/mm3 (0.84-5.20); LYMPHOCYTES PERCENT AUTO 30 % (21-46); MONOCYTES PERCENT AUTO 9 % (4-13); Mean Corpuscular HGB 32.1 pg (26.0-34.0); Mean Corpuscular HGB Conc 34.1 g/dL (31.5-36.5); Mean Corpuscular Volume 94 fL (80-100); Mean Platelet Volume 12.3 fL (9.1-12.4); NEUTROPHILS ABSOLUTE AUTO 3.19 K/mm3 (1.96-9.15); NEUTROPHILS PERCENT AUTO 57 % (41-73); NRBC ABSOLUTE 0.02 K/mm3 (0.00-0.02); NRBC Auto 0.4 /100 WBC (0.0-0.2); Platelet Count 105 K/mm3 (150-400); RDW Standard Deviation 48.2 fL (35.1-46.3); Red Blood Cell Count 2.93 M/mm3 (3.80-5.20)
[2023-10-18 08:06] LABS: Bun/Creatinine Ratio 23.7 (12.0-20.0); Calcium, Blood 8.1 mg/dL (8.5-10.1); Creatinine, Blood 0.51 mg/dL (0.40-1.00); Potassium, Blood 3.6 mmol/L (3.5-5.5)
[2023-10-18] MEDS ORDERED: Insulin Human Lispro 100 Units/ML 3ML Syringe SC SCH ×2 (08:30→17:30)
[2023-10-18] MEDS ORDERED: Insulin Glargine-Yfgn 100 Unit/mL 3 ML SYR SC SCH (09:00)
[2023-10-18] MEDS ORDERED: Insulin Glargine-Yfgn 100 Unit/mL 3 ML SYR SC ONE (10:00)
[2023-10-18] MEDS ORDERED: GUAI600T33 PO (12:10)
[2023-10-18] MEDS ORDERED: AMOX500 PO (12:10)
[2023-10-18] MEDS ORDERED: INSULANI SC (12:11)
[2023-10-18] MEDS ORDERED: HUMALOG JU100 UNIT/2 SC (12:12)
[2023-10-18] MEDS ORDERED: NYAMYC15 G1 TOP (12:13)
[2023-10-18] MEDS ORDERED: VISBIOME 112.51 EACH PO (12:13)
--- NOTE | 2023-10-18 16:36 | NUR ---
SHIFT SUMMARY PATIENT IS ALERT AND ORIENTED WITH SLIGHT DEVELOPMENTAL DELAY NOTATED. PATIENT HAS HAD NO ACUTE EVENTS THIS SHIFT. VITAL SIGNS REVIEWED. PATIENTS CBG HAS FLUXUATED WITH INCREASING INSULIN DOSES. PATIENT HAS BEEN A STANDBY ASSIST THIS SHIFT. PATIENT HAS COMPLAINED OF PELVIC PAIN RT CRAMPS. PATIENT HAS NOT COMPLAINED OF SOB, NAUSEA OR SOB THIS SHIFT. POSSIBLE DC HOME WITH HOME HEALTH TOMORROW RIDE WAS NOT AVAILABLE TODAY. WILL MONITOR UNTIL SHIFT CHANGE.
[2023-10-18 20:02] VITALS: BP 101/60
--- NOTE | 2023-10-18 21:20 | NUR ---
called doctor to report fever and vitals. left message. awaiting return call
[2023-10-18 21:44] VITALS: BP 118/60
--- NOTE | 2023-10-18 21:57 | NUR ---
DOCTOR AT BEDSIDE CAME TO SEE PT AFTER I CALLED TO REPORT VITALS. BP IMPROVED. FEVER SLIGHTLY IMPROVED. ORDERED TO GIVE TYLENOL AND RE-ASSESS.
[2023-10-18 22:34] VITALS: BP 118/60
[2023-10-18 22:48] VITALS: BP 115/90
--- NOTE | 2023-10-19 03:53 | NUR ---
SHIFT SUMMARY PT A&O X4 WITH HX OF DEVELOPMENTAL DELAY. PT HAD FEVER, DR TO BEDSIDE. ORDERED TO GIVE TYLENOL. EDUCATED PT ON ADA DIET. PT REQUESTING SODA. BOTH DR AND NURSE RECOMMENDED WATER INSTEAD. CBG AT HS 212. PT IS SBA TO BATHROOM. CONTINENT. CALLS APPROPRIATELY FOR NEEDS. BED KEPT IN LOWEST POSITION. WILL CONTINUE TO MONITOR.
[2023-10-19 04:14] VITALS: BP 109/77
[2023-10-19 05:53] LABS: Hematocrit 26.1 % (33.0-51.0); Hemoglobin 8.7 g/dL (11.5-16.0); Mean Corpuscular HGB 31.8 pg (26.0-34.0); Mean Corpuscular HGB Conc 33.3 g/dL (31.5-36.5); Mean Corpuscular Volume 95 fL (80-100); Mean Platelet Volume 12.6 fL (9.1-12.4); NRBC ABSOLUTE 0.04 K/mm3 (0.00-0.02); NRBC Auto 0.5 /100 WBC (0.0-0.2); Platelet Count 129 K/mm3 (150-400); RDW Coefficient Variation 13.8 % (11.7-14.2); RDW Standard Deviation 47.7 fL (35.1-46.3); Red Blood Cell Count 2.74 M/mm3 (3.80-5.20); White Blood Cell Count 8.55 K/mm3 (4.00-11.30)
[2023-10-19 06:13] LABS: Bun/Creatinine Ratio 14.1 (12.0-20.0); Calcium, Blood 8.5 mg/dL (8.5-10.1); Creatinine, Blood 0.5 mg/dL (0.40-1.00); Potassium, Blood 3.2 mmol/L (3.5-5.5)
[2023-10-19 06:18] LABS: BAND PERCENT MAN 8 % (0-8); BASOPHILS PERCENT MAN 0 % (0-2); EOSINOPHILS ABSOLUTE MAN 0.08 K/mm3 (0.00-0.68); EOSINOPHILS PERCENT MAN 1 % (0-6); LYMPHOCYTES ABSOLUTE MAN 2.65 K/mm3 (0.84-5.20); LYMPHOCYTES PERCENT MAN 31 % (21-46); METAMYELOCYTE ABSOLUTE MAN 0.08 K/mm3 (0.00-0.00); METAMYELOCYTE PERCENT MAN 1 % (0-0); MONOCYTES ABSOLUTE MAN 1.45 K/mm3 (0.16-1.47); MONOCYTES PERCENT MAN 17 % (4-13); MYELOCYTE ABSOLUTE MAN 0.08 K/mm3 (0.00-0.00); MYELOCYTE PERCENT MAN 1 % (0-0); NEUTROPHILS ABSOLUTE MAN 4.18 K/mm3 (1.96-9.15); SEG NEUTROPHILS PERCENT MAN 41 % (41-73); TOTAL CELLS COUNTED 100
[2023-10-19] MEDS ORDERED: Potassium Chloride 20 MEQ/15 ML UDC PO ONE ×2 (07:00→16:31)
[2023-10-19 07:17] VITALS: BP 126/80
[2023-10-19] MEDS ORDERED: Ipratropium/Albuterol SulF 2.5-0.5MG/3 ML Amp INH PRN (08:30)
[2023-10-19] MEDS ORDERED: Insulin Human Lispro 100 Units/ML 3ML Syringe SC SCH (08:30)
[2023-10-19] MEDS ORDERED: Insulin Glargine-Yfgn 100 Unit/mL 3 ML SYR SC SCH ×2 (09:00)
[2023-10-19 10:49] LABS: Bun/Creatinine Ratio 14.7 (12.0-20.0); Calcium, Blood 8.5 mg/dL (8.5-10.1); Creatinine, Blood 0.55 mg/dL (0.40-1.00); Potassium, Blood 3.2 mmol/L (3.5-5.5)
[2023-10-19] MEDS ORDERED: Albuterol HFA200 ACT/6.7 GM INH INH PRN (11:05)
[2023-10-19] MEDS ORDERED: ALBU8HFA2 INH (11:07)
[2023-10-19] MEDS ORDERED: Advair Diskus 250-50 INH (11:09)
[2023-10-19] MEDS ORDERED: Ibuprofen 600 MG Tab PO PRN (11:10)
[2023-10-19] MEDS ORDERED: MONT10T PO (11:10)
[2023-10-19] MEDS ORDERED: Mometasone/Formoterol MDI 200/5 mcg 13 GM INH SCH (11:15)
[2023-10-19 11:36] LABS: Percent Saturation 9.6 % (15.0-50.0)
[2023-10-19 15:47] VITALS: BP 101/63
--- NOTE | 2023-10-19 18:15 | NUR ---
SHIFT SUMMARY PATIENT ALERT AND INTERACTIVE. PATIENT ABLE TO AMBULATE IN ROOM INDEPENDENTLY. PATIENT NEEDING A LOT OF SUPPORT AND TEACHING RELATED TO DIABETIC MEDICATIONS, ADMINISTRATION, AND CHECKING BLOOD SUGAR. PATIENT STRUGGLING WITH POKING FINGER, ANXIOUS ABOUT GIVING INJECTIONS, AND UNABLE TO DIAL UP CORRECT DOSE WHEN INSTRUCTED. CONCERNS FOR SAFE ADMINISTRATION WHEN DISCHARGED. DIRECTOR DIGITAL ADVERTISING REQUESTED TO COME AND SPEAK WITH PATIENT. CARE MANAGEMENT ASSISTING WITH DISCHARGE PLAN AND OUTPATIENT SERVICES.
[2023-10-19 19:31] VITALS: BP 110/65
[2023-10-19 19:43] LABS: Bun/Creatinine Ratio 18.1 (12.0-20.0); Calcium, Blood 8.3 mg/dL (8.5-10.1); Creatinine, Blood 0.5 mg/dL (0.40-1.00); Potassium, Blood 3.3 mmol/L (3.5-5.5)
[2023-10-19] MEDS ORDERED: Montelukast Sodium 10 MG Tab PO SCH (21:00)
[2023-10-20 04:39] VITALS: BP 125/60
[2023-10-20 05:13] LABS: Hematocrit 22.8 % (33.0-51.0); Hemoglobin 7.6 g/dL (11.5-16.0); Mean Corpuscular HGB 31.9 pg (26.0-34.0); Mean Corpuscular HGB Conc 33.3 g/dL (31.5-36.5); Mean Corpuscular Volume 96 fL (80-100); Mean Platelet Volume 12.8 fL (9.1-12.4); NRBC ABSOLUTE 0.04 K/mm3 (0.00-0.02); NRBC Auto 0.5 /100 WBC (0.0-0.2); Platelet Count 123 K/mm3 (150-400); RDW Coefficient Variation 13.9 % (11.7-14.2); RDW Standard Deviation 48.4 fL (35.1-46.3); Red Blood Cell Count 2.38 M/mm3 (3.80-5.20); White Blood Cell Count 7.81 K/mm3 (4.00-11.30)
--- NOTE | 2023-10-20 05:23 | NUR ---
SHIFT SUMMARY SHUBHAM WAS ALERT AND FULLY ORIENTED ON ASSESSMENT, AND ABLE TO AMBULATE INDEPENDENTLY IN THE ROOM. PT COMPLAINS OF COUGHING UP THICK WHITE PHLEGM THIS EVENING. PT HAS NO ACUTE EVENTS TONIGHT, AND NO NEW CONCERNS OR WORSENING SYMPTOMS. PT SLEEPING IN BED AT A LOW POSITION WITH THE CALL LIGHT IN REACH WHICH SHE CAN USE APPROPRIATELY.
[2023-10-20 05:44] LABS: BAND PERCENT MAN 6 % (0-8); BASOPHILS PERCENT MAN 0 % (0-2); EOSINOPHILS ABSOLUTE MAN 0.23 K/mm3 (0.00-0.68); EOSINOPHILS PERCENT MAN 3 % (0-6); LYMPHOCYTES ABSOLUTE MAN 2.49 K/mm3 (0.84-5.20); LYMPHOCYTES PERCENT MAN 32 % (21-46); METAMYELOCYTE ABSOLUTE MAN 0.07 K/mm3 (0.00-0.00); METAMYELOCYTE PERCENT MAN 1 % (0-0); MONOCYTES ABSOLUTE MAN 1.17 K/mm3 (0.16-1.47); MONOCYTES PERCENT MAN 15 % (4-13); MYELOCYTE ABSOLUTE MAN 0.15 K/mm3 (0.00-0.00); MYELOCYTE PERCENT MAN 2 % (0-0); NEUTROPHILS ABSOLUTE MAN 3.67 K/mm3 (1.96-9.15); SEG NEUTROPHILS PERCENT MAN 41 % (41-73); TOTAL CELLS COUNTED 100
[2023-10-20 05:48] LABS: Bun/Creatinine Ratio 21.9 (12.0-20.0); Calcium, Blood 8.2 mg/dL (8.5-10.1); Creatinine, Blood 0.46 mg/dL (0.40-1.00); Potassium, Blood 3.3 mmol/L (3.5-5.5)
[2023-10-20 08:04] VITALS: BP 103/69
[2023-10-20] MEDS ORDERED: Citalopram Hydrobromide 20 MG Tab PO SCH (09:00)
[2023-10-20] MEDS ORDERED: Insulin Glargine-Yfgn 100 Unit/mL 3 ML SYR SC SCH (09:00)
[2023-10-20] MEDS ORDERED: Potassium Chloride 20 MEQ TabCR PO ONE (09:00)
[2023-10-20] MEDS ORDERED: Dicyclomine HCl 20 MG Tab PO ONE (12:00)
[2023-10-20] MEDS ORDERED: Furosemide 10 MG / ML 2ML Vial IV ONE (16:00)
[2023-10-20 16:03] VITALS: BP 92/71
[2023-10-20] MEDS ORDERED: Dicyclomine HCl 20 MG Tab PO PRN (18:00)
--- NOTE | 2023-10-20 18:04 | NUR ---
SHIFT SUMMARY PATIENT ALERT AND INTERACTIVE. CONTINUES TO BE ANXIOUS WITH INSULIN DOSING. PATIENT DOING WELL AT CHECKING BLOOD SUGAR. CONTINUES TO HAVE ISSUES WITH DIALING UP CORRECT INSULIN DOSE ON INSULIN PEN AND DOES NOT LIKE INJECTING SELF. SPOKE WITH HOSPITALIST REGARDING CONCERNS. REACHED OUT TO BROTHER AND DID A VIDEO CALL. EDUCATED BROTHER ON HOW TO DIAL UP DOSE AND INJECT INSULIN. BROTHER VERBALIZING UNDERSTANDING AND FEELS CONFIDENT TO HELP SISTER BE SUCCESSFUL IF WRITTEN INSTRUCTIONS SENT HOME FOR SLIDING SCALE AND LONG ACTING INSULIN DOSING. PATIENT CONTINUES TO HAVE ABD PAIN. PATIENT CURRENTLY ON HER MENSTRAL CYCLE. PATIENT TAKEN TO RADIOLOGY FOR CT OF ABD. PATIENT GIVEN A ONE TIME DOSE OF LASIX FOR EDEMA. PATIENT NOTED TO HAVE EXCORIATED SKIN AROUND MOUTH. PATIENT LICKING LIPS AND AREA AROUND HER MOUTH FREQUENTLY ESPECIALLY WHEN SHE IS NERVOUS.
[2023-10-20 19:25] VITALS: BP 108/73
[2023-10-20] MEDS ORDERED: Ferrous Sulfate 325 MG Tab PO SCH (21:30)
[2023-10-21 03:32] VITALS: BP 101/65
--- NOTE | 2023-10-21 04:25 | NUR ---
SHIFT SUMMARY 38 YR F ADMITTED FOR DKA. FULL CODE. NO ACUTE CHANGES THIS SHIFT. PER INSULIN SLIDING SCALE, PT DID NOT REQUIRE INSULIN THIS SHIFT. SHE WAS VERY RELEIVED TO NOT HAVE TO GIVE HERSELF AN INJECTION AND SHE EXPRESSED ANXIETY ABOUT THE LEARNING PROCESS OF IT. EARLY IN THE SHIFT PT STATED THAT SHE VOMITED A SMALL AMOUNT BUT FELT FINE AFTERWARD. NO OTHER C/O NAUSEA OR VOMITING THIS SHIFT. ALSO, NO C/O PAIN OR DISCOMFORT. PT IS INDEPENDANT IN THE ROOM AND IS COOPERATIVE WITH CARE. BED IN LOW POSITION AND CALL LIGHT IN REACH.
[2023-10-21 06:49] LABS: Hematocrit 22.9 % (33.0-51.0); Hemoglobin 7.5 g/dL (11.5-16.0); Mean Corpuscular HGB 31.5 pg (26.0-34.0); Mean Corpuscular HGB Conc 32.8 g/dL (31.5-36.5); Mean Corpuscular Volume 96 fL (80-100); Mean Platelet Volume 12.7 fL (9.1-12.4); NRBC ABSOLUTE 0.03 K/mm3 (0.00-0.02); NRBC Auto 0.4 /100 WBC (0.0-0.2); Platelet Count 154 K/mm3 (150-400); RDW Coefficient Variation 13.7 % (11.7-14.2); RDW Standard Deviation 48.4 fL (35.1-46.3); Red Blood Cell Count 2.38 M/mm3 (3.80-5.20); White Blood Cell Count 8.14 K/mm3 (4.00-11.30)
[2023-10-21 07:02] LABS: Albumin, Blood 1.5 g/dL (3.4-5.0); Albumin/Globulin Ratio 0.3 (0.8-1.8); Bilirubin, Total 0.3 mg/dL (0.1-1.0); Bun/Creatinine Ratio 22.3 (12.0-20.0); Calcium, Blood 8.1 mg/dL (8.5-10.1); Creatinine, Blood 0.54 mg/dL (0.40-1.00); Globulin, Blood 4.5 g/dL (2.2-4.0); Potassium, Blood 3.7 mmol/L (3.5-5.5)
[2023-10-21 07:32] VITALS: BP 91/61
[2023-10-21 07:36] LABS: IMMATURE RETIC FRACTION 23.5 % (2.3-16.0); RETIC HGB EQUIVALENT 27.7 pg (28.20-36.60); RETICULOCYTE ABSOLUTE 0.04 M/mm3 (0.0200-0.1100); RETICULOCYTE COUNT PERCENT 1.74 % (0.50-2.50)
[2023-10-21 07:45] LABS: BAND PERCENT MAN 7 % (0-8); BASOPHILS ABSOLUTE MAN 0.08 K/mm3 (0.00-0.23); BASOPHILS PERCENT MAN 1 % (0-2); EOSINOPHILS ABSOLUTE MAN 0.24 K/mm3 (0.00-0.68); EOSINOPHILS PERCENT MAN 3 % (0-6); LYMPHOCYTES ABSOLUTE MAN 2.93 K/mm3 (0.84-5.20); LYMPHOCYTES PERCENT MAN 36 % (21-46); METAMYELOCYTE ABSOLUTE MAN 0.08 K/mm3 (0.00-0.00); METAMYELOCYTE PERCENT MAN 1 % (0-0); MONOCYTES ABSOLUTE MAN 0.73 K/mm3 (0.16-1.47); MONOCYTES PERCENT MAN 9 % (4-13); MYELOCYTE ABSOLUTE MAN 0.16 K/mm3 (0.00-0.00); MYELOCYTE PERCENT MAN 2 % (0-0); NEUTROPHILS ABSOLUTE MAN 3.74 K/mm3 (1.96-9.15); PLASMA CELL ABSOLUTE MAN 0.16 K/mm3 (0.00-0.00); PLASMA CELLS PERCENT MAN 2 % (0-0); SEG NEUTROPHILS PERCENT MAN 39 % (41-73); TOTAL CELLS COUNTED 100
[2023-10-21] MEDS ORDERED: Insulin Human Lispro 100 Units/ML 3ML Syringe SC SCH (08:30)
[2023-10-21] MEDS ORDERED: Insulin Glargine-Yfgn 100 Unit/mL 3 ML SYR SC SCH (09:00)
[2023-10-21 15:17] VITALS: BP 102/66
[2023-10-21 19:32] VITALS: BP 113/68
--- NOTE | 2023-10-21 19:39 | NUR ---
SHIFT SUMMARY PATIENT ALERT AND INTERACTIVE. PATIENT INDEPENDENT IN THE ROOM. PATIENT STATES THAT HER PERIOD IS ALMOST COMPLETE. PATIENT DENIES ANY PAIN. TOLERATING DIET, NO NAUSEA. VOIDING IN BR. CONTINUES TO STRUGGLE WITH INSULIN INJECTIONS. PATIENT HAS DIFFICULTY SEEING DOSING ON HUMALOG PEN AND DOES NOT LIKE INJECTING SELF. ATTEMPTED TO CONTACT DAD BY VIDEO TO DO INSULIN INJECTION BUT NOT ABLE TO REACH HIM ON VIDEO. DID SPEEK WITH HIM OVER THE PHONE AND REVIEWED PROCESS. BOTH DAD AND BROTHER FEEL IF THE INSTRUCTIONS ARE WRITTEN OUT WELL RELATED TO INSULIN DOSING THEY WILL BE ABLE TO ASSIST ALONG WITH HOME HEALTH AND DIRECTOR OF FIELD SALES ASSISTING.
--- NOTE | 2023-10-22 04:41 | NUR ---
SHIFT SUMMARY. PATIENT IS AOX4. PATIENT CALLS APPROPRIATELY, IS ABLE TO MAKE HER NEEDS KNOWN, ANDIS COOPERATIVE WITH CARE. PATIENT ANXIOUS ABOUT GIVING SELF INSULIN INJECTIONS SHE DOES NOT LIKE NEEDLES, PATIENT REPORTS BEING OKAY WITH DOING BLOOD GLUCOSE CHECKS. PER REPORT PATIENS DAD AND BROTHER FEEL COMFORTABLE WITH FULLY WRITTEN OUT INSTRUCTIONS TO BE ABLE TO HELP WITH HOME HEALTH AND CASE MANAGEMENTS INVOLVEMENT. PATIENT WOULD BENEFIT FROM DIABETES EDUCATION. PATIENT APPEARED OVERWHELMED BY THE NEW DIAGNOSIS AND THE CHANGES SHE WOULD NEED TO TAKE. TALKED BRIEFLY WITH PATIENT SHE WAS TIRED. PATIENT STATES SHE IS EXCITED TO GO HOME. PATIENTS BLOOD SUGAR AT BEDTIME WAS 111, PATIENT HAS SMALL SNACK-DISCUSSED WITH PATIENT SOME S/S OF HYPOGLYCEMIA AND TO CALL IF SHE FEELS OFF OR DIFFERENT. PATIENT IS INDEPENDENT IN ROOM TO THE RESTROOM. PATIENT HAVING SOME DIFFICULTY WITH SEEING SMALL PRINT. BED IS LOCKED IN THE LOWEST POSITION WITH CALL LIGHT IN REACH. NO S/S OF DISTRESS NOTED AT THIS TIME. CARE ONGOING.
[2023-10-22 05:41] LABS: Hematocrit 22.7 % (33.0-51.0); Hemoglobin 7.4 g/dL (11.5-16.0); Mean Corpuscular HGB 31.9 pg (26.0-34.0); Mean Corpuscular HGB Conc 32.6 g/dL (31.5-36.5); Mean Corpuscular Volume 98 fL (80-100); Mean Platelet Volume 12.3 fL (9.1-12.4); NRBC ABSOLUTE 0.03 K/mm3 (0.00-0.02); NRBC Auto 0.3 /100 WBC (0.0-0.2); Platelet Count 204 K/mm3 (150-400); RDW Coefficient Variation 13.6 % (11.7-14.2); RDW Standard Deviation 48.5 fL (35.1-46.3); Red Blood Cell Count 2.32 M/mm3 (3.80-5.20); White Blood Cell Count 9.39 K/mm3 (4.00-11.30)
[2023-10-22 06:05] LABS: BAND PERCENT MAN 4 % (0-8); BASOPHILS PERCENT MAN 0 % (0-2); EOSINOPHILS ABSOLUTE MAN 0.09 K/mm3 (0.00-0.68); EOSINOPHILS PERCENT MAN 1 % (0-6); LYMPHOCYTES % ATYPICAL MANUAL 1 % (0-0); LYMPHOCYTES ABSOLUTE MAN 1.97 K/mm3 (0.84-5.20); LYMPHOCYTES PERCENT MAN 20 % (21-46); METAMYELOCYTE ABSOLUTE MAN 0.18 K/mm3 (0.00-0.00); METAMYELOCYTE PERCENT MAN 2 % (0-0); MONOCYTES ABSOLUTE MAN 0.37 K/mm3 (0.16-1.47); MONOCYTES PERCENT MAN 4 % (4-13); MYELOCYTE ABSOLUTE MAN 0.09 K/mm3 (0.00-0.00); MYELOCYTE PERCENT MAN 1 % (0-0); NEUTROPHILS ABSOLUTE MAN 6.66 K/mm3 (1.96-9.15); SEG NEUTROPHILS PERCENT MAN 67 % (41-73); TOTAL CELLS COUNTED 100
[2023-10-22 06:23] LABS: Bun/Creatinine Ratio 19.6 (12.0-20.0); Calcium, Blood 8.3 mg/dL (8.5-10.1); Creatinine, Blood 0.51 mg/dL (0.40-1.00)
[2023-10-22 07:37] VITALS: BP 107/65
[2023-10-22 15:55] VITALS: BP 103/55
[2023-10-22] MEDS ORDERED: Insulin Human Lispro 100 Units/ML 3ML Syringe SC SCH (17:30)
[2023-10-22] MEDS ORDERED: Insulin Human Lispro 100 Units/ML 3ML Syringe SC ONE (18:15)
--- NOTE | 2023-10-22 18:22 | NUR ---
CALLED DR. HUMPHRIES TO CLARIFY INSULIN ORDER. PT CBG 80. PER MD, HOLD 10 UNITS WITH DINNER AND GIVE 5 UNITS WITH DINNER.
--- NOTE | 2023-10-22 19:33 | NUR ---
PT WILL REQUIRE ONGOING EDUCATION ON DIABETIC DIAGNOSIS AND BS CHECKS AND INSULIN ADMINISTERED. PROVIDED EDUCATION USING TEACH BACK METHOD FOR EVERY INSULIN ADMIN AND BS CHECK. PT UNABLE TO SAFELY ADMINISTER INSULIN AT THIS TIME. ALERT AND ORIENTED X4. DEVELOPMENTAL DELAY. PT LIVES WITH FATHER. FATHER REQUIRES MEDICAL NEEDS WELL. INDEPENDENT IN THE ROOM. TREATED BACK PAIN PER EMAR.
[2023-10-22 19:48] VITALS: BP 111/56
[2023-10-23 05:08] VITALS: BP 96/55
[2023-10-23 05:57] LABS: Hematocrit 23.7 % (33.0-51.0); Hemoglobin 7.7 g/dL (11.5-16.0); Mean Corpuscular HGB 31.7 pg (26.0-34.0); Mean Corpuscular HGB Conc 32.5 g/dL (31.5-36.5); Mean Corpuscular Volume 98 fL (80-100); Mean Platelet Volume 12.2 fL (9.1-12.4); NRBC ABSOLUTE 0.02 K/mm3 (0.00-0.02); NRBC Auto 0.2 /100 WBC (0.0-0.2); Platelet Count 246 K/mm3 (150-400); RDW Coefficient Variation 13.4 % (11.7-14.2); RDW Standard Deviation 47.8 fL (35.1-46.3); Red Blood Cell Count 2.43 M/mm3 (3.80-5.20); White Blood Cell Count 11.68 K/mm3 (4.00-11.30)
--- NOTE | 2023-10-23 06:26 | NUR ---
SHIFT SUMMARY: PT IS ADMITTED FOR DKA AND IS A FULL CODE. IS ALERT AND ABLE TO MAKE NEEDS KNOWN. HAS BEEN INDEPENDENT WHILE IN ROOM. POWERGLIDE TO UPPER LEFT ARE IS PATENT WITH DRESSING THAT IS CDI. ATTEMPTED TO REVIEW HOW TO DO SELF INJECTION AT . SHE SEEMED TO HAVE A HARD TIME TO UNDERSTAND DIFFERENCE BETWEEN BASIL AND SLIDING SCALE DOSING WELL HOW TO HOLD INJECTION PEN IN A MANNER SO THAT SHE DOES NOT DEPRESS THE PLUNGER BY ACCIDENT. WHEN ASKED TO DIAL UP A DOSE OF 15u ON THE PEN SHE DIALED UP 19u AND WAS NOT ABLE TO ACCURATELY READ BACK THE NUMBER 19 OR 20 WITHOUT BEING COACHED. PREVIOUS SHIFT NURSE DID STATE A POSSIBLE DEVELOPMENTAL DELAY.
[2023-10-23 06:41] LABS: BAND PERCENT MAN 2 % (0-8); BASOPHILS PERCENT MAN 0 % (0-2); EOSINOPHILS PERCENT MAN 0 % (0-6); LYMPHOCYTES PERCENT MAN 18 % (21-46); MONOCYTES ABSOLUTE MAN 0.46 K/mm3 (0.16-1.47); MONOCYTES PERCENT MAN 4 % (4-13); NEUTROPHILS ABSOLUTE MAN 9.11 K/mm3 (1.96-9.15); SEG NEUTROPHILS PERCENT MAN 76 % (41-73); TOTAL CELLS COUNTED 100
[2023-10-23 06:42] LABS: Albumin, Blood 1.6 g/dL (3.4-5.0); Albumin/Globulin Ratio 0.3 (0.8-1.8); Bilirubin, Total 0.2 mg/dL (0.1-1.0); Bun/Creatinine Ratio 14.2 (12.0-20.0); Calcium, Blood 8.6 mg/dL (8.5-10.1); Creatinine, Blood 0.57 mg/dL (0.40-1.00); Globulin, Blood 5.1 g/dL (2.2-4.0); Potassium, Blood 3.9 mmol/L (3.5-5.5); Total Protein, Blood 6.7 g/dL (6.4-8.2)
[2023-10-23 07:52] VITALS: BP 115/73
[2023-10-23] MEDS ORDERED: Insulin Glargine-Yfgn 100 Unit/mL 3 ML SYR SC SCH (09:00)
[2023-10-23 16:10] VITALS: BP 103/74
[2023-10-23 17:43] LABS: ISLET CELL CYTOPLASMIC AB, IGG <1:4 (<1:4)
--- NOTE | 2023-10-23 18:41 | NUR ---
SHIFT SUMMARY: PT A/O X 4, FORGETFUL, PLEASANT AND COOPERATIVE WITH CARE. PT IS STANDBY ASSIST WITH IND IN ROOM. ATTEMPTED TO EDUCATE PT ON INSULIN ADMINISTRATION AND READING SLIDING SCALE THROUGHOUT THE DAY TODAY. BETWEEN INSULIN ADMINISTRATIONS PT COULD NOT REMEMBER HOW TO APPLY NEEDLE TO PEN, SHE COULD NOT DIAL CORRECT INSULIN AMOUNT. PT COULD NOT ACCURATELY CHOOSE HER CBG RESULT ON THE SLIDING SCALE. PT WOULD ATTEMPT TO PICK A NUMBER BUT IT WAS NOT ACCURATE. PT COULD NOT REMEMBER HOW TO INJECT THE INSULIN IN PROPER ORDER. PT ATTEMPTED TWICE TO PUSH THE PEN PRIOR TO INJECTING IN HER ABD. PT WAS COOPERATIVE AND EAGER TO LEARN BUT NOT ABLE TO REMEMBER PROPER STEPS FOR INSULIN ADMINISTRATION TODAY. DISCUSSED CONCERNS WITH BUNGY JUMP MASTER AND DR. ZAVALA. PT HAD NO FURTHER COMPLAINTS. PT STILL HAS PRODUCTIVE COUGH WITH WHITE SPUTUM.
[2023-10-23 19:31] VITALS: BP 94/52
[2023-10-24 03:08] VITALS: BP 107/60
[2023-10-24 06:18] LABS: BASOPHILS ABSOLUTE AUTO 0.02 K/mm3 (0.00-0.23); BASOPHILS PERCENT AUTO 0 % (0-2); EOSINOPHILS PERCENT AUTO 0 % (0-6); Hematocrit 21.9 % (33.0-51.0); Hemoglobin 7.1 g/dL (11.5-16.0); IMMATURE GRAN ABSOLUTE AUTO 0.16 K/mm3 (0.00-0.10); IMMATURE GRAN PERCENT AUTO 1 % (0-1); LYMPHOCYTES ABSOLUTE AUTO 1.92 K/mm3 (0.84-5.20); LYMPHOCYTES PERCENT AUTO 17 % (21-46); MONOCYTES ABSOLUTE AUTO 1.15 K/mm3 (0.16-1.47); MONOCYTES PERCENT AUTO 10 % (4-13); Mean Corpuscular HGB 31.8 pg (26.0-34.0); Mean Corpuscular HGB Conc 32.4 g/dL (31.5-36.5); Mean Corpuscular Volume 98 fL (80-100); Mean Platelet Volume 11.8 fL (9.1-12.4); NEUTROPHILS ABSOLUTE AUTO 8.04 K/mm3 (1.96-9.15); NEUTROPHILS PERCENT AUTO 71 % (41-73); NRBC ABSOLUTE 0.02 K/mm3 (0.00-0.02); NRBC Auto 0.2 /100 WBC (0.0-0.2); Platelet Count 227 K/mm3 (150-400); RDW Coefficient Variation 13.5 % (11.7-14.2); RDW Standard Deviation 48.1 fL (35.1-46.3); Red Blood Cell Count 2.23 M/mm3 (3.80-5.20); White Blood Cell Count 11.29 K/mm3 (4.00-11.30)
[2023-10-24 06:42] LABS: Albumin, Blood 1.5 g/dL (3.4-5.0); Anion Gap 3 mmol/L (6-16); Blood Urea Nitrogen 8 mg/dL (8-24); Bun/Creatinine Ratio 14.7 (12.0-20.0); CO2, Blood 28 mmol/L (21-32); Calcium, Blood 8.4 mg/dL (8.5-10.1); Chloride, Blood 106 mmol/L (98-108); Creatinine, Blood 0.55 mg/dL (0.40-1.00); Glomerular Filtration Rate 120 (60-); Glucose, Blood 123 mg/dL (70-99); Phosphorus, Blood 4.5 mg/dL (2.5-4.9); Sodium, Blood 137 mmol/L (136-145)
[2023-10-24 08:03] VITALS: BP 102/68
[2023-10-24 14:31] LABS: Hematocrit 21.8 % (33.0-51.0); Hemoglobin 6.9 g/dL (11.5-16.0)
[2023-10-24 14:59] VITALS: BP 102/68
[2023-10-24 15:15] LABS: IMMATURE RETIC FRACTION 21.5 % (2.3-16.0); RETIC HGB EQUIVALENT 24.4 pg (28.20-36.60); RETICULOCYTE ABSOLUTE 0.0438 M/mm3 (0.0200-0.1100); RETICULOCYTE COUNT PERCENT 2.02 % (0.50-2.50)
[2023-10-24] MEDS ORDERED: Sod Ferric Gluc Complx/Sucrose 125 MG in NS 100 ML IV SCH (16:00)
[2023-10-24 19:31] VITALS: BP 102/52
--- NOTE | 2023-10-24 19:53 | NUR ---
SHIFT SUMMARY PATIENT ALERT AND INTERACTIVE. PATIENT NEEDING ENCOURAGEMENT AND SUPPORT WITH PERFORMING BLOOD GLUCOSE AND INSULIN INJECTIONS. PATIENT NEEDING CUING THROUGH ALL STEPS. PATIENT EASILY FRUSTRATED BUT WILLING TO COMPLETE TASKS. PATIENT HAVING DIFFICULTY VISUALIZING DOSE ON INSULIN PEN. SPOKE WITH AUNT WHO SAYS SHE IS WILLING TO TELETYPEWRITER OPERATOR [employer] FOR TEACHING WHEN NOTIFIED WHERE TO PICK IT UP. PATIENT DOES NOT REMEMBER WHERE SHE WAS TOLD IT WOULD BE AVAILABLE. PATIENT ABLE TO INDEPENDENTLY WALK AROUND THE UNIT WITH STAND BY ASSISTANCE. PATIENT DOES NOT WANT TO TAKE LOVENOX INJECTIONS BUT NEEDS TO BE ENCOURAGED AND ESCORTED WITH AMBULATION. PATIENT COUGHING UP THICK ULRICH SECRETIONS AT TIMES. PATIENT VERBALIZING CHEST SORENESS WITH COUGHING THAT IS RELIEVED WITH TYLENOL. PATIENT HAVING LOW GRADE FEVER THIS AFTERNOON. PATIENT CONTINUES ON ANTIBIOTICS AT THIS TIME.
[2023-10-25] VITALS (15 sets, daily range): BP systolic 94–116; BP diastolic 54–65
[2023-10-25 04:10] LABS: BASOPHILS ABSOLUTE AUTO 0.02 K/mm3 (0.00-0.23); BASOPHILS PERCENT AUTO 0 % (0-2); EOSINOPHILS PERCENT AUTO 0 % (0-6); Hematocrit 20.7 % (33.0-51.0); Hemoglobin 6.7 g/dL (11.5-16.0); IMMATURE GRAN ABSOLUTE AUTO 0.09 K/mm3 (0.00-0.10); IMMATURE GRAN PERCENT AUTO 1 % (0-1); LYMPHOCYTES ABSOLUTE AUTO 1.85 K/mm3 (0.84-5.20); LYMPHOCYTES PERCENT AUTO 19 % (21-46); MONOCYTES PERCENT AUTO 11 % (4-13); Mean Corpuscular HGB 32.1 pg (26.0-34.0); Mean Corpuscular HGB Conc 32.4 g/dL (31.5-36.5); Mean Corpuscular Volume 99 fL (80-100); Mean Platelet Volume 11.5 fL (9.1-12.4); NEUTROPHILS ABSOLUTE AUTO 6.79 K/mm3 (1.96-9.15); NEUTROPHILS PERCENT AUTO 69 % (41-73); Platelet Count 225 K/mm3 (150-400); RDW Coefficient Variation 13.3 % (11.7-14.2); Red Blood Cell Count 2.09 M/mm3 (3.80-5.20); White Blood Cell Count 9.85 K/mm3 (4.00-11.30)
[2023-10-25 04:29] LABS: Albumin, Blood 1.5 g/dL (3.4-5.0); Albumin/Globulin Ratio 0.3 (0.8-1.8); Bilirubin, Total 0.2 mg/dL (0.1-1.0); Bun/Creatinine Ratio 16.1 (12.0-20.0); Calcium, Blood 8.1 mg/dL (8.5-10.1); Creatinine, Blood 0.56 mg/dL (0.40-1.00); Globulin, Blood 5.1 g/dL (2.2-4.0); Potassium, Blood 3.9 mmol/L (3.5-5.5); Total Protein, Blood 6.6 g/dL (6.4-8.2)
[2023-10-25] MEDS ORDERED: NS 250 ML IV SCH (07:25)
[2023-10-25] MEDS ORDERED: NS 250 ML IV PRN (08:05)
--- NOTE | 2023-10-25 11:17 | NUR ---
"Spiritual Care Visit | Staff Request Pt. is awake in bed and welcomes my visit. Pt. is pleasant. Pt. verbalized remembering this chassis driver from a previous visit. Facilitated a more extensive life review. Listen with empathy, interest, and a calming presence. Pt. displayed evidence of trust and matters of ritesh and belief are considered. Prayed with Pt. Pt. verbalized gratitude for the spiritual care visit and welcomed this chassis driver to return."
--- NOTE | 2023-10-25 12:54 | NUR ---
1138 STRT OF BLOOD . LUNGS RT CLEAR, LEFT DIM T/O 1200 LUNGS CLEAR RT, LEFT DIM T/O 1250 LUNGS CLEAR RT, LEFT, DIM LOWER, CLEAR UPPER
--- NOTE | 2023-10-25 14:57 | NUR ---
PRBC FINISHED. LOW LEFT LUNG CONTINUES DIM. BALANCE IS CLEAR. RESP CONTINUE SAME HER BASELINE 16-20. MILD TEMP CONTINUES 0.3 INCREASE. BP SOME BETTER T/O. PT STATES NADER WELL. NO NEW CONCERNS NOTED.
[2023-10-25 16:59] LABS: Hematocrit 25.7 % (33.0-51.0); Hemoglobin 8.3 g/dL (11.5-16.0)
--- NOTE | 2023-10-25 17:13 | NUR ---
CBG [address] THIS AFT. SPOKE TO DR HUMPHRIES. OKAYED CHANGE FLAT 10 U AT MEALS TO FLAT 7. KEEP THE S/S
[2023-10-25] MEDS ORDERED: Insulin Human Lispro 100 Units/ML 3ML Syringe SC SCH (17:30)
--- NOTE | 2023-10-25 18:15 | NUR ---
PT RECEIVED 1 UNIT PRBC. NADER WELL. ALSO HAD AUNT IN TO VISIT. SHE STATE WAS NICE TO VISIT. HAS BEEN ON PHONE TO DIFFERENT PEOPLE TO VISIT TODAY. DID CT OF PELVIS AND ABD TODAY. CBG DOWN TO [address] HUMPHRIES. MOVED FLAT MEAL INSULIN TO 7UNITS. NO OTHER NEW CONCERNS NOTED. BED IN LOW POSITION, CALLITE IN REACH, TRIED EDUCATING ON GIVING INSULIN. HAS A GREAT DIFFICULTY IN MEASURING AND ADMINISTRATION OF INSULIN PIN. NO OTHER CONCERNS NOTED.
[2023-10-26 02:34] VITALS: BP 113/74
[2023-10-26 05:09] LABS: BASOPHILS ABSOLUTE AUTO 0.03 K/mm3 (0.00-0.23); BASOPHILS PERCENT AUTO 0 % (0-2); EOSINOPHILS PERCENT AUTO 0 % (0-6); Hematocrit 23.4 % (33.0-51.0); Hemoglobin 7.6 g/dL (11.5-16.0); IMMATURE GRAN ABSOLUTE AUTO 0.09 K/mm3 (0.00-0.10); IMMATURE GRAN PERCENT AUTO 1 % (0-1); LYMPHOCYTES ABSOLUTE AUTO 1.79 K/mm3 (0.84-5.20); LYMPHOCYTES PERCENT AUTO 17 % (21-46); MONOCYTES ABSOLUTE AUTO 1.33 K/mm3 (0.16-1.47); MONOCYTES PERCENT AUTO 13 % (4-13); Mean Corpuscular HGB 30.5 pg (26.0-34.0); Mean Corpuscular HGB Conc 32.5 g/dL (31.5-36.5); Mean Platelet Volume 11.5 fL (9.1-12.4); NEUTROPHILS ABSOLUTE AUTO 7.03 K/mm3 (1.96-9.15); NEUTROPHILS PERCENT AUTO 68 % (41-73); NRBC ABSOLUTE 0.02 K/mm3 (0.00-0.02); NRBC Auto 0.2 /100 WBC (0.0-0.2); Platelet Count 257 K/mm3 (150-400); RDW Coefficient Variation 16.5 % (11.7-14.2); RDW Standard Deviation 56.7 fL (35.1-46.3); Red Blood Cell Count 2.49 M/mm3 (3.80-5.20); White Blood Cell Count 10.27 K/mm3 (4.00-11.30)
[2023-10-26 05:10] LABS: Mean Corpuscular Volume 94 fL (80-100)
[2023-10-26 05:38] LABS: Bun/Creatinine Ratio 14.8 (12.0-20.0); Calcium, Blood 8.2 mg/dL (8.5-10.1); Creatinine, Blood 0.47 mg/dL (0.40-1.00); Potassium, Blood 4.1 mmol/L (3.5-5.5)
--- NOTE | 2023-10-26 05:41 | NUR ---
SHIFT SUMMARY NOC PT A/O X 4. PLEASANT AND COOPERATIVE WITH CARE. NO ACUTE CHANGES TO REPORT. PT HS CBG 193, AND UPON SPOT CHECK @ 0332 181. PT HAS PG HEMAL THAT DRAWS. PT IS CURRENTLY RESTING WITH BED IN LOWEST POSITION, AND CALL LIGHT WITHIN REACH.
[2023-10-26 07:08] VITALS: BP 107/65
[2023-10-26] MEDS ORDERED: CefTRIAXone 2000 MG Vial ONE (07:48)
[2023-10-26 13:38] LABS: International Normalized Ratio 1.07; Prothrombin Time Results 11.2 Sec (9.7-11.5)
[2023-10-26 15:33] LABS: Body Fluid WBC Count 40 /mm3 (0-999)
[2023-10-26 15:38] LABS: Glucose, Body Fluid 78 mg/dL; Lactate Dehydrogenase, Body Fl 406 U/L; Protein, Body Fluid 4.9 g/dL; Triglycerides, Body Fluid 123 mg/dL
[2023-10-26 15:39] LABS: pH, Body Fluid 6.4
[2023-10-26 15:42] LABS: RBC Count, Body Fluid 52 /mm3 (0-0)
[2023-10-26 16:17] LABS: Appearance, Body Fluid Clear (Clear); Color, Body Fluid Yellow (None-Yellow); Total Cell Count, Body Fluid 100
[2023-10-26 16:37] VITALS: BP 114/66
--- NOTE | 2023-10-26 17:11 | NUR ---
SHIFT SUMMARY PT AOX3-4, PT APPEARS TO HAVE A DEVELOPMENTAL DELAY. PLEASANT AND COOPERATIVE BUT CHILD-LIKE. NO C/O CP,P,N/V,D THIS SHIFT. THORACENTESIS COMPLETED TODAY. PT TOLERATED IT WELL. SPOKE WITH HER FATHER BRIEFLY ON THE PHONE, EXPLAINING THE PROCEDURE. PT RECEIVED A SHOWER TODAY. CALL LIGHT WITHIN REACH, BED IN THE LOWEST POSITION. WILL REPORT TO ONCOMING NURSE.
[2023-10-26 21:29] VITALS: BP 104/66
[2023-10-27 03:51] VITALS: BP 106/70
[2023-10-27 04:52] LABS: BASOPHILS ABSOLUTE AUTO 0.05 K/mm3 (0.00-0.23); BASOPHILS PERCENT AUTO 1 % (0-2); EOSINOPHILS PERCENT AUTO 0 % (0-6); Hematocrit 23.6 % (33.0-51.0); Hemoglobin 7.6 g/dL (11.5-16.0); IMMATURE GRAN ABSOLUTE AUTO 0.06 K/mm3 (0.00-0.10); IMMATURE GRAN PERCENT AUTO 1 % (0-1); LYMPHOCYTES ABSOLUTE AUTO 1.74 K/mm3 (0.84-5.20); LYMPHOCYTES PERCENT AUTO 21 % (21-46); MONOCYTES ABSOLUTE AUTO 1.24 K/mm3 (0.16-1.47); MONOCYTES PERCENT AUTO 15 % (4-13); Mean Corpuscular HGB 30.9 pg (26.0-34.0); Mean Corpuscular HGB Conc 32.2 g/dL (31.5-36.5); Mean Corpuscular Volume 96 fL (80-100); Mean Platelet Volume 11.6 fL (9.1-12.4); NEUTROPHILS ABSOLUTE AUTO 5.12 K/mm3 (1.96-9.15); NEUTROPHILS PERCENT AUTO 62 % (41-73); Platelet Count 260 K/mm3 (150-400); RDW Standard Deviation 55.8 fL (35.1-46.3); Red Blood Cell Count 2.46 M/mm3 (3.80-5.20); White Blood Cell Count 8.21 K/mm3 (4.00-11.30)
[2023-10-27 05:11] LABS: Creatinine, Blood 0.56 mg/dL (0.40-1.00); Potassium, Blood 4.1 mmol/L (3.5-5.5)
--- NOTE | 2023-10-27 05:31 | NUR ---
SHIFT SUMMARY. PATIENT IS ALERT AND ORIENTED X3-4. PATIENT IS PLEASANT AND COOPERATIVE WITH CARE. PATIENT HAS SLEPT WELL THIS SHIFT WITH NO ACUTE EVENTS NOTED. PATIENT REPORTS THAT HER COUGH SEEMED BETTER T/O THE NIGHT; SHE DID NOT COUGH VERY MUCH. PATIENT IS INDEPENDEDNT IN ROOM, CALLS APPROPRIATELY AND IS ABLE TO MAKE HER NEEDS KNOWN. PATIENT WOULD BENEFIT FROM OUTPATIENT DIABETES CARE AND TRAINING/EDUCATION. PATIENT APPEARS TO NO BE SURE ABOUT HOW TO MANAGE HER DIABETES DESPITE TRAINING RECEIVED DURING THIS HOSPITALIZATION. PATIENTS BED IS LOCKED IN LOWEST POSITION WITH CALL LIGHT IN REACH. NO S/S OF DISTRESS NOTED AT THIS TIME. CARE IS ONGOING.
[2023-10-27 07:03] VITALS: BP 113/66
[2023-10-27] MEDS ORDERED: MetroNIDAZOLE 500MG/NS 100 ml 100 ML IV SCH (11:00)
--- NOTE | 2023-10-27 11:58 | NUR ---
1102, THORACENTISIS, NOTHING ASPIRTED, DR HAIRSTON TO CONSULT WITH DR HUMPHRIES, FLUID HAS BECOME GELANTINOUS, PATIENT TOLERATED WELL, CRIED AND REPORTED IT WAS BECAUSE SHE WAS SCARED BUT BOT IN PAIN. CXRAY TO BE DONE, CONTACTED RADIOLOGY, WAITING TO HEAR BACK AND WILL LET DR HAIRSTON KNOW WHEN THE XRAY IS DONE, CALL LIGHT WITH IN REACH, MAKES NEEDS KNOWN
[2023-10-27] MEDS ORDERED: Ferrous Sulfate 325 MG Tab PO SCH (12:10)
[2023-10-27 16:56] VITALS: BP 104/62
--- NOTE | 2023-10-27 19:11 | NUR ---
NO ACUTE CHANGES, PLEASANT AND COOPERATIVE TO CARE, MEDICATED FOR PAIN WITH TYLENOL, VSS, FATHER VISITED TODAY, VERY PROACTIVE IN HER CARE, PATIENT DOING WELL WITH PROGRAMING INSULIN PEN AND ADMINISTERING, CALL LIGHT WITH IN REACH, REPORTED TO PM RN
[2023-10-27 20:20] VITALS: BP 103/83
[2023-10-28 06:22] VITALS: BP 119/67
[2023-10-28 07:18] VITALS: BP 109/74
[2023-10-28] MEDS ORDERED: CefTRIAXone 2000 MG Vial ONE (07:24)
--- NOTE | 2023-10-28 07:27 | NUR ---
SHIFT SUMMARY PT A&O, CALM AND COOPERATIVE WITH CARE. CONTINENT AND INDEPENDENT IN ROOM. HS CBG 177. PG HEMAL LOZANO. PT NEEDS EDUCATION AND TEACHING SURROUNDING NEW DX OF DM. PT HAS HISTORY OF DEV DELAY. PT HAD THORCENTESIS YESTERDAY. BANDAID IN PLACE OVER SIRE ON UPPER BACK. NO ACUTE CHANGES THIS SHIFT. BED KEPT IN LOWEST POSITION WITH CALL LIGHT WITHIN REACH. PT CALLS APPROPRAITELY FOR NEEDS.
[2023-10-28] MEDS ORDERED: Insulin Glargine-Yfgn 100 Unit/mL 3 ML SYR SC SCH (09:00)
[2023-10-28 10:22] LABS: BASOPHILS ABSOLUTE AUTO 0.05 K/mm3 (0.00-0.23); BASOPHILS PERCENT AUTO 1 % (0-2); EOSINOPHILS PERCENT AUTO 0 % (0-6); Hematocrit 24.7 % (33.0-51.0); Hemoglobin 7.8 g/dL (11.5-16.0); IMMATURE GRAN ABSOLUTE AUTO 0.05 K/mm3 (0.00-0.10); IMMATURE GRAN PERCENT AUTO 1 % (0-1); LYMPHOCYTES ABSOLUTE AUTO 1.99 K/mm3 (0.84-5.20); LYMPHOCYTES PERCENT AUTO 24 % (21-46); MONOCYTES ABSOLUTE AUTO 0.92 K/mm3 (0.16-1.47); MONOCYTES PERCENT AUTO 11 % (4-13); Mean Corpuscular HGB 30.4 pg (26.0-34.0); Mean Corpuscular HGB Conc 31.6 g/dL (31.5-36.5); Mean Corpuscular Volume 96 fL (80-100); Mean Platelet Volume 11.3 fL (9.1-12.4); NEUTROPHILS ABSOLUTE AUTO 5.31 K/mm3 (1.96-9.15); NEUTROPHILS PERCENT AUTO 64 % (41-73); Platelet Count 251 K/mm3 (150-400); RDW Coefficient Variation 15.8 % (11.7-14.2); RDW Standard Deviation 54.8 fL (35.1-46.3); Red Blood Cell Count 2.57 M/mm3 (3.80-5.20); White Blood Cell Count 8.32 K/mm3 (4.00-11.30)
[2023-10-28 10:45] LABS: Albumin, Blood 1.6 g/dL (3.4-5.0); Albumin/Globulin Ratio 0.3 (0.8-1.8); Bilirubin, Total 0.3 mg/dL (0.1-1.0); Bun/Creatinine Ratio 23.8 (12.0-20.0); Calcium, Blood 8.7 mg/dL (8.5-10.1); Creatinine, Blood 0.5 mg/dL (0.40-1.00); Globulin, Blood 5.9 g/dL (2.2-4.0); Potassium, Blood 3.9 mmol/L (3.5-5.5); Total Protein, Blood 7.5 g/dL (6.4-8.2)
--- NOTE | 2023-10-28 11:02 | NUR ---
DR ROB ROUNDED, PATIENT PLEASNT AND COOPERATIVE CARE, INDEPEDANT IN ROOM, NO CHANGES TO REPORT, CALL LIGHT WITH IN REACH
[2023-10-28 15:40] VITALS: BP 109/68
--- NOTE | 2023-10-28 18:46 | NUR ---
ALERT AND ORIENTED, PLEASANT TO CARE, ADMINSTERED INSULIN PEN AND TOOK OWN BLOOD GLUCOSE, AMBULATED IN THE HALLS, STEADY GAIT, SHOWERED TODAY, POSSIBLE DISCHARGE HOME TOMORROW, CALL LIGHT WITH IN REACH
[2023-10-28 22:02] VITALS: BP 106/68
[2023-10-29 02:01] VITALS: BP 104/76
[2023-10-29 06:51] LABS: BASOPHILS ABSOLUTE AUTO 0.06 K/mm3 (0.00-0.23); BASOPHILS PERCENT AUTO 1 % (0-2); EOSINOPHILS PERCENT AUTO 0 % (0-6); Hematocrit 24.6 % (33.0-51.0); Hemoglobin 7.9 g/dL (11.5-16.0); IMMATURE GRAN ABSOLUTE AUTO 0.02 K/mm3 (0.00-0.10); IMMATURE GRAN PERCENT AUTO 0 % (0-1); LYMPHOCYTES ABSOLUTE AUTO 1.65 K/mm3 (0.84-5.20); LYMPHOCYTES PERCENT AUTO 23 % (21-46); MONOCYTES ABSOLUTE AUTO 0.93 K/mm3 (0.16-1.47); MONOCYTES PERCENT AUTO 13 % (4-13); Mean Corpuscular HGB 30.7 pg (26.0-34.0); Mean Corpuscular HGB Conc 32.1 g/dL (31.5-36.5); Mean Corpuscular Volume 96 fL (80-100); Mean Platelet Volume 10.8 fL (9.1-12.4); NEUTROPHILS ABSOLUTE AUTO 4.43 K/mm3 (1.96-9.15); NEUTROPHILS PERCENT AUTO 63 % (41-73); Platelet Count 279 K/mm3 (150-400); RDW Coefficient Variation 15.6 % (11.7-14.2); RDW Standard Deviation 54.3 fL (35.1-46.3); Red Blood Cell Count 2.57 M/mm3 (3.80-5.20); White Blood Cell Count 7.09 K/mm3 (4.00-11.30)
[2023-10-29 07:05] LABS: Albumin, Blood 1.6 g/dL (3.4-5.0); Albumin/Globulin Ratio 0.3 (0.8-1.8); Bilirubin, Total 0.2 mg/dL (0.1-1.0); Bun/Creatinine Ratio 28.3 (12.0-20.0); Calcium, Blood 8.4 mg/dL (8.5-10.1); Creatinine, Blood 0.46 mg/dL (0.40-1.00); Globulin, Blood 5.8 g/dL (2.2-4.0); Total Protein, Blood 7.4 g/dL (6.4-8.2)
[2023-10-29 07:07] VITALS: BP 103/64
--- NOTE | 2023-10-29 07:51 | NUR ---
SHIFT SUMMARY PT A&O, PLESANT AND COOPERATIVE WITH CARE. SOFT SPOKEN WITH SLOW SPEECH. PT HAS HX OF DEV DELAY. PT COMPLAINED OF BACK PAIN, MEDICATED PER EMAR. PT STATED EFFECTIVE. HEMAL PG SL. HS CBG 232. PT HAS BEEN WORKING ON HER NEW ADA DIET AND LEARNING HOW TO DO HER OWN BLOOD SUGAR CHECKS AND INSULIN. PT WAS ABLE TO CHECK HER OWN BS WITH MINIMAL QUEING. INSULIN COVERAGE WAS NOT INDICATED SO I DID NOT OBSERVE HER ADMINISTERING. PT RECEIVING SCHEDULED IV ABX. INDEPENDENT IN ROOM. CONTINENT. BED IN LOWEST POSIITON WITH CALL LIGHT WITHIN REACH.
[2023-10-29] MEDS ORDERED: Insulin Human Lispro 100 Units/ML 3ML Syringe SC SCH (08:30)
[2023-10-29] MEDS ORDERED: Insulin Glargine-Yfgn 100 Unit/mL 3 ML SYR SC SCH (09:00)
[2023-10-29 15:32] VITALS: BP 113/63
--- NOTE | 2023-10-29 16:20 | NUR ---
SHIFT SUMMARY A&OX4, COOPERATIVE WITH CARE. DENIED ANY CP/PRESSURE, HEADACHE, DIZZINESS OR SOB. COMPLAINED OF 7/10 PAIN TO UPPER BACK AND NECK. MEDICATED PER EMAR. PATIENT INDEPENDENT AND WENT ON A COUPLE OF WALKS AROUND THE UNIT. NO ACUTE CHANGES THIS SHIFT. CURRENTLY WAITING FOR DINNER. BED IN LOWEST POSITION. CALL LIGHT WITHIN REACH.
--- NOTE | 2023-10-29 16:58 | NUR ---
Pt. is awake in bed and welcomes my visit. Pt. is pleasant and verbalized an update of the visitors she had over the weekend. Pt. verbalized an expectation that she may need to go to a SNF before being discharged home, Considered matters of ritesh and belief. Pt. displays a simple and sweet demeanor. Pt. verbalizes that she enjoys reading her bible at home. This wastewater plant civil engineer offers to provide Pt. with a NT/Psalms, and Pt. accepts the offer. Prayed for Pt. and then provided Pt. with a NT/Psalms. Pt. verbalized gratitude for the spiritual care visit and the bible.
[2023-10-29 20:12] VITALS: BP 115/63
[2023-10-29] MEDS ORDERED: Ketorolac Tromethamine 15mg Vial IV PRN (21:45)
[2023-10-30 03:41] VITALS: BP 95/72
--- NOTE | 2023-10-30 06:13 | NUR ---
SHIFT SUMMARY PT COMPLAINED OF PAIN IN UPPER SHOULDERS/NECK AREA AT A 9/10 PAIN. CALLED IN ORDER FOR IV TORRIDOL AND SET UP HEAT PAD. PT STATED THIS HELPED WITH HER PAIN. AFTER PAIN RELIEF, SHE WAS ABLE TO SLEEP SOUNDLY THROUGH THE NIGHT. ASKED FOR HOT TEA WITH SPLENDA APPROX. 0530. PT FRIENDLY AND COOPERATIVE WITH CARE.
[2023-10-30 07:07] VITALS: BP 111/74
--- NOTE | 2023-10-30 16:09 | NUR ---
SHIFT SUMMARY A&OX4, COOPERATIVE WITH CARE, PLEASANT. INDEPENDENT IN ROOM. DENIED CP/PRESSURE, HEADACHE, DIZZINESS, OR SOB. COMPLAINED OF 8/10 PAIN TO UPPER BACK/SHOULDERS/BACK OF NECK. TYLENOL AND TORADOL GIVEN PER EMAR. NO ACUTE EVENTS THIS SHIFT. PATIENT ADMINISTERED INSULIN WITH SUPERVISION WITH LITTLE CUES. SHE IS CURRENTLY SITTING UP IN BED DOING TOE NAIL CARE. BED IN LOWEST POSITION. CALL LIGHT WITHIN REACH.
[2023-10-30 20:05] VITALS: BP 106/61
[2023-10-31 02:49] VITALS: BP 108/66
--- NOTE | 2023-10-31 05:40 | NUR ---
SHIFT SUMMARY PT STILL COMPLAINING OF PAIN IN NECK AREA. PROVIDED TORRIDOL PAIN MEDICATION. PT STATES THIS GAVE HER SOME RELIEF. SHE HAS BEEN PLEASANT AND COOPERATIVE WITH HER CARE. USES CALL LIGHT APPROPRIATELY. PROVIDED EXTRA PILLOW FOR SUPPORT AND ELEVATED HEAD OF BED. PT SLEPT SOUNDLY THROUGH NIGHT.
[2023-10-31 07:09] LABS: Hematocrit 25.4 % (33.0-51.0); Hemoglobin 7.9 g/dL (11.5-16.0); Mean Corpuscular HGB Conc 31.1 g/dL (31.5-36.5); Mean Corpuscular Volume 97 fL (80-100); Mean Platelet Volume 10.8 fL (9.1-12.4); Platelet Count 324 K/mm3 (150-400); RDW Coefficient Variation 15.3 % (11.7-14.2); RDW Standard Deviation 53.7 fL (35.1-46.3); Red Blood Cell Count 2.63 M/mm3 (3.80-5.20); White Blood Cell Count 7.57 K/mm3 (4.00-11.30)
[2023-10-31 07:10] VITALS: BP 124/83
[2023-10-31 07:29] LABS: BASOPHILS ABSOLUTE MAN 0.15 K/mm3 (0.00-0.23); BASOPHILS PERCENT MAN 2 % (0-2); EOSINOPHILS PERCENT MAN 0 % (0-6); LYMPHOCYTES PERCENT MAN 37 % (21-46); MONOCYTES ABSOLUTE MAN 0.98 K/mm3 (0.16-1.47); MONOCYTES PERCENT MAN 13 % (4-13); NEUTROPHILS ABSOLUTE MAN 3.63 K/mm3 (1.96-9.15); SEG NEUTROPHILS PERCENT MAN 48 % (41-73); TOTAL CELLS COUNTED 100
[2023-10-31 07:47] LABS: Albumin, Blood 1.7 g/dL (3.4-5.0); Albumin/Globulin Ratio 0.3 (0.8-1.8); Bilirubin, Total 0.1 mg/dL (0.1-1.0); Bun/Creatinine Ratio 49.9 (12.0-20.0); Calcium, Blood 8.2 mg/dL (8.5-10.1); Creatinine, Blood 0.42 mg/dL (0.40-1.00); Globulin, Blood 5.8 g/dL (2.2-4.0); Potassium, Blood 4.5 mmol/L (3.5-5.5); Total Protein, Blood 7.5 g/dL (6.4-8.2)
[2023-10-31] MEDS ORDERED: CEFTRIAXONE2 G1 IV (14:38)
[2023-10-31] MEDS ORDERED: ALBU90OI INH (14:38)
[2023-10-31] MEDS ORDERED: Metronidaz500 MG/100 IV (14:39)
[2023-10-31] MEDS ORDERED: IPRAT-ALBUT 0.5-3 ML INH (14:39)
[2023-10-31 15:03] VITALS: BP 118/69
[2023-10-31 15:32] LABS: SARS-Cov-2 (COVID-19) PCR, MMC NEGATIVE (NEGATIVE)
--- NOTE | 2023-10-31 18:21 | NUR ---
SHIFT SUMMARY PT AOX4, INDEPENDENT IN THE ROOM. MEDICATED FOR NECK PAIN PER THE EMAR. NEW MEDICATION, CREAM, IN THE DRAWER. CBG 103 THIS EVENING, PROVIDER NOTIFIED. PLAN IS FOR HER TO DC TO A [facility] TOMORROW, PENDING INSURANCE AUTHORIZATION. CALL LIGHT WITHIN REACH, BED IN THE LOWEST POSITION. WILL REPORT TO ONCOMING NURSE.
[2023-10-31 20:16] VITALS: BP 120/58
[2023-11-01 04:16] VITALS: BP 111/62
--- NOTE | 2023-11-01 04:45 | NUR ---
1900: ASSUMED CARE OF PT, BEDSIDE REPORT RECEIVED FROM DAY SHIFT RN. PT IS SITTING UP IN BED. A/O X4. BREATHING IS EVEN AND UNLABORED, NO ACUTE DISTRESS AT THIS TIME. ANTICIPATING TRANSFER TO [facility]. PT REPORTS FEELING ANXIOUS ABOUT GOING SOMEWHERE NEW. PT IS INDEPENDENT IN THE ROOM. VSS, MEDICATIONS PROVIDED ORDERED. SAFETY MEASURES TAKEN, ALL NEEDS ADDRESSED DURING THE SHIFT. NO ACUTE EVENTS.
[2023-11-01 05:43] LABS: BASOPHILS ABSOLUTE AUTO 0.06 K/mm3 (0.00-0.23); BASOPHILS PERCENT AUTO 1 % (0-2); EOSINOPHILS ABSOLUTE AUTO 0.12 K/mm3 (0.00-0.68); EOSINOPHILS PERCENT AUTO 2 % (0-6); Hematocrit 25.3 % (33.0-51.0); Hemoglobin 7.8 g/dL (11.5-16.0); IMMATURE GRAN ABSOLUTE AUTO 0.03 K/mm3 (0.00-0.10); IMMATURE GRAN PERCENT AUTO 1 % (0-1); LYMPHOCYTES ABSOLUTE AUTO 2.19 K/mm3 (0.84-5.20); LYMPHOCYTES PERCENT AUTO 35 % (21-46); MONOCYTES ABSOLUTE AUTO 0.84 K/mm3 (0.16-1.47); MONOCYTES PERCENT AUTO 13 % (4-13); Mean Corpuscular HGB Conc 30.8 g/dL (31.5-36.5); Mean Corpuscular Volume 97 fL (80-100); Mean Platelet Volume 11.1 fL (9.1-12.4); NEUTROPHILS ABSOLUTE AUTO 3.05 K/mm3 (1.96-9.15); NEUTROPHILS PERCENT AUTO 48 % (41-73); Platelet Count 322 K/mm3 (150-400); RDW Coefficient Variation 15.1 % (11.7-14.2); RDW Standard Deviation 53.8 fL (35.1-46.3); White Blood Cell Count 6.29 K/mm3 (4.00-11.30)
[2023-11-01 06:08] LABS: Bun/Creatinine Ratio 28.4 (12.0-20.0); Calcium, Blood 8.1 mg/dL (8.5-10.1); Creatinine, Blood 0.46 mg/dL (0.40-1.00); Potassium, Blood 4.1 mmol/L (3.5-5.5)
[2023-11-01 07:24] VITALS: BP 105/74
--- NOTE | 2023-11-01 08:53 | NUR ---
Pt. is awake in bed and finishing breakfast when she welcomes my visit. Pt. verbalizes an expectation to be transferred to [facility] today. Pt. also verbalizes some anxiety about the move. With theraputic listening and a calm spirit, seek to normalize the Pt. experience. Considered matters of ritesh and belief. Throught the visit, the Pt. displayed evidence of increased trust and peace. Prayed with Pt. Pt. verbalized gratitude for the spiritual care visit.
[2023-11-01 15:53] VITALS: BP 128/75
--- NOTE | 2023-11-01 18:01 | NUR ---
SHIFT SUMMARY PT AOX4, INDEPENDENT IN THE ROOM. MEDICATED FOR PAIN PER THE EMAR. NO NEW ON SNIF PLACEMENT TODAY, POSSIBLY IN THE NEXT COUPLE DAYS. CALL LIGHT WITHIN REACH, BED IN THE LOWEST POSITION. WILL REPORT TO ONCOMING NURSE.
--- NOTE | 2023-11-01 18:06 | NUR ---
NOTE: THIS NURSE CONTINUED DIABETIC EDUCATION WITH THE PT.
[2023-11-01 19:59] VITALS: BP 109/66
[2023-11-02 03:15] VITALS: BP 92/79
--- NOTE | 2023-11-02 04:43 | NUR ---
1900: ASSUMED CARE OF PT, BEDSIDE REPORT RECEIVED FROM FREDRICK GOLDMAN. PT IS SITTING UP IN BED. A/O X4. REPORTEDLY TRANSFER TO SNF WAS DELAYED. POSSIBLE D/C TOMORROW. VSS, MEDICATIONS PROVIDED ORDERED. PT MEDICATED FOR NECK PAIN X1. INDEPENDENT IN THE ROOM. SAFETY MEASURES TAKEN, ALL NEEDS ADDRESSED. NO ACUTE EVENTS.
[2023-11-02 05:43] LABS: Hematocrit 25.2 % (33.0-51.0); Hemoglobin 7.8 g/dL (11.5-16.0); Mean Corpuscular HGB 29.9 pg (26.0-34.0); Mean Corpuscular Volume 97 fL (80-100); Mean Platelet Volume 10.5 fL (9.1-12.4); Platelet Count 308 K/mm3 (150-400); RDW Standard Deviation 53.2 fL (35.1-46.3); Red Blood Cell Count 2.61 M/mm3 (3.80-5.20); White Blood Cell Count 6.01 K/mm3 (4.00-11.30)
[2023-11-02 06:15] LABS: BAND PERCENT MAN 1 % (0-8); BASOPHILS ABSOLUTE MAN 0.06 K/mm3 (0.00-0.23); BASOPHILS PERCENT MAN 1 % (0-2); EOSINOPHILS PERCENT MAN 0 % (0-6); LYMPHOCYTES PERCENT MAN 40 % (21-46); MONOCYTES PERCENT MAN 10 % (4-13); NEUTROPHILS ABSOLUTE MAN 2.94 K/mm3 (1.96-9.15); SEG NEUTROPHILS PERCENT MAN 48 % (41-73); TOTAL CELLS COUNTED 100
[2023-11-02 07:21] LABS: Bun/Creatinine Ratio 23.9 (12.0-20.0); Calcium, Blood 8.6 mg/dL (8.5-10.1); Creatinine, Blood 0.42 mg/dL (0.40-1.00); Potassium, Blood 4.1 mmol/L (3.5-5.5)
[2023-11-02 07:50] VITALS: BP 106/77
[2023-11-02 15:36] VITALS: BP 117/77
--- NOTE | 2023-11-02 18:16 | NUR ---
DC TO [facility] WITH A RADIOLOGY EQUIPMENT SERVICER TIME OF 1900. WILL BE W/C TRANSPORT. DC PKT COMPLETE AND WILL BE GIVEN TO TRANSPORT PERSONNEL AT TIME OF RADIOLOGY EQUIPMENT SERVICER. ALEJANDRO PIERRE TO JEAN. PT WILL BE RECEIVING 2 WEEKS OF IV ABX AT [facility]. REPORT WILL BE GIVEN TO NOC RN IF NEEDED PT MIGHT BE PICKED UP IN THE MIDDLE OF SHIFT CHANGE.
== END 2023-11-02 20:05 | DRG 637 ==
LOC: ER 21:38 → ICUE 10-15 00:08 → MEDS 10-15 00:08 → ICUE 10-15 00:29 → MEDS 10-17 19:42
PROVIDERS: Emergency Medicine; Family Medicine; Hospitalist; Internal Medicine; Student in an Organized Health Care Education/Training Program; ADMIT Internal Medicine
PROC: 3E03329 Introduction of Other Anti-infective into Peripheral Vein, Percutaneous Approach (ICD-10-PCS; 2023-10-15)
PROC: 30233N1 Transfusion of Nonautologous Red Blood Cells into Peripheral Vein, Percutaneous Approach (ICD-10-PCS; principal; 2023-10-26)
PROC: 0W9B3ZZ Drainage of Left Pleural Cavity, Percutaneous Approach (ICD-10-PCS; 2023-10-26)
PROC: 0WJB3ZZ Inspection of Left Pleural Cavity, Percutaneous Approach (ICD-10-PCS; 2023-10-27)
DX: E13.10 Other specified diabetes mellitus with ketoacidosis without coma (principal); A40.3 Sepsis due to Streptococcus pneumoniae; G92.8 Other toxic encephalopathy; R65.20 Severe sepsis without septic shock; J13 Pneumonia due to Streptococcus pneumoniae; D82.1 Di George's syndrome; J90 Pleural effusion, not elsewhere classified; R18.8 Other ascites; K86.1 Other chronic pancreatitis; B37.0 Candidal stomatitis; J91.8 Pleural effusion in other conditions classified elsewhere; D63.8 Anemia in other chronic diseases classified elsewhere; B37.2 Candidiasis of skin and nail; J45.909 Unspecified asthma, uncomplicated; G89.29 Other chronic pain; E86.0 Dehydration; M54.9 Dorsalgia, unspecified; F17.210 Nicotine dependence, cigarettes, uncomplicated; E87.6 Hypokalemia; Z88.8 Allergy status to other drugs, medicaments and biological substances; Z88.5 Allergy status to narcotic agent
CPT/HCPCS: 32555; 36415; 36430; 51702; 71045; 71046; 71250; 71260; 74176; 74177; 80047; 80048; 80053; 80061; 80069; 81001; 82010; 82607; 82728; 82746; 82803; 82945; 82947; 83036; 83540; 83550; 83605; 83615; 83735; 83880; 83986; 84145; 84157; 84478; 84703; 85014; 85018; 85025; 85045; 85610; 85730; 86341; 86850; 86900; 86901; 86920; 87040; 87070; 87075; 87184; 87205; 87426; 87811; 88108; 88305; 89051; 93005; 93010; 94640; 94664; 94760; 96360-59; 97116; 97162; 99285-25; A9270; C1751; J0456; J0696; J1450; J1650; J1815; J1885; J1940; J2405; J2916; J3480; J7042; J7050; J7060; J7120; P9016; Q9967; U0002

== ENCOUNTER 2024-01-14 01:38 | Emergency (ER) | payer OTHER ==
[~2024-01-14] VITALS: Ht 162.6 cm; Wt 68.0 kg
[~2024-01-14 01:38] MED LIST changes: +ALBU8HFA2 INH; +Advair Diskus 250-50 INH; +CEFTRIAXONE2 G1 IV; +EPINEPHRIN0.3 MG/0.1 IM; -Enoxaparin 40 MG/0.4 ML SYR SC SCH; +HUMALOG JU100 UNIT/2 SC; +INSULANI SC; +IPRAT-ALBUT 0.5-3 ML INH; +MONT10T PO; +Metronidaz500 MG/100 IV; +NYAMYC15 G1 TOP; +VISBIOME 112.51 EACH PO
[2024-01-14] MEDS ORDERED: Ipratropium/Albuterol SulF 2.5-0.5MG/3 ML Amp INH ONE (01:50)
[2024-01-14 02:06] LABS: BASOPHILS ABSOLUTE AUTO 0.03 K/mm3 (0.00-0.23); BASOPHILS PERCENT AUTO 0 % (0-2); EOSINOPHILS PERCENT AUTO 0 % (0-6); Hemoglobin 11.2 g/dL (11.5-16.0); IMMATURE GRAN ABSOLUTE AUTO 0.03 K/mm3 (0.00-0.10); IMMATURE GRAN PERCENT AUTO 0 % (0-1); LYMPHOCYTES ABSOLUTE AUTO 3.18 K/mm3 (0.84-5.20); LYMPHOCYTES PERCENT AUTO 34 % (21-46); MONOCYTES PERCENT AUTO 9 % (4-13); Mean Corpuscular Volume 94 fL (80-100); Mean Platelet Volume 11.2 fL (9.1-12.4); NEUTROPHILS ABSOLUTE AUTO 5.28 K/mm3 (1.96-9.15); NEUTROPHILS PERCENT AUTO 57 % (41-73); Platelet Count 254 K/mm3 (150-400); RDW Coefficient Variation 14.1 % (11.7-14.2); RDW Standard Deviation 47.5 fL (35.1-46.3); Red Blood Cell Count 3.73 M/mm3 (3.80-5.20); White Blood Cell Count 9.32 K/mm3 (4.00-11.30)
[2024-01-14 02:25] LABS: Albumin, Blood 2.5 g/dL (3.4-5.0); Albumin/Globulin Ratio 0.5 (0.8-1.8); Bilirubin, Total 0.1 mg/dL (0.1-1.0); Bun/Creatinine Ratio 31.7 (12.0-20.0); Calcium, Blood 8.5 mg/dL (8.5-10.1); Creatinine, Blood 0.5 mg/dL (0.40-1.00); Globulin, Blood 4.7 g/dL (2.2-4.0); Potassium, Blood 4.2 mmol/L (3.5-5.5); Total Protein, Blood 7.2 g/dL (6.4-8.2)
[2024-01-14 02:32] LABS: pH Blood Arterial 7.44 (7.35-7.45)
[2024-01-14 02:33] LABS: PCO2 Arterial 40.4 mmHg (35-45); PO2 Arterial 104 mmHg (80-100)
[2024-01-14 03:14] LABS: Influenza A, PCR NEGATIVE (NEGATIVE); Influenza B, PCR NEGATIVE (NEGATIVE); Resp Syncytial Virus, PCR NEGATIVE (NEGATIVE); SARS-Cov-2 (COVID-19) PCR, MMC NEGATIVE (NEGATIVE)
[2024-01-14] MEDS ORDERED: Azithromycin 250 MG Tab PO ONE (03:25)
[2024-01-14] MEDS ORDERED: Zithromax250 MG PO (03:26)
[2024-01-14] MEDS ORDERED: ALBU90OI INH (03:26)
[2024-01-14] MEDS ORDERED: Tessalon Perle100 MG PO (03:29)
[2024-01-14 03:30] VITALS: BP 131/87
[2024-01-14] MEDS ORDERED: Benzonatate 100 MG Cap PO ONE (03:30)
== END 2024-01-14 03:48 | disposition home or self-care (01) ==
LOC: ER 01:38
PROVIDERS: Emergency Medicine
DX: R05.9 Cough, unspecified (principal); R06.02 Shortness of breath; E11.9 Type 2 diabetes mellitus without complications; Z79.4 Long term (current) use of insulin; F17.210 Nicotine dependence, cigarettes, uncomplicated; Z79.899 Other long term (current) drug therapy; Z79.51 Long term (current) use of inhaled steroids; Z88.5 Allergy status to narcotic agent; Z88.8 Allergy status to other drugs, medicaments and biological substances; Z91.030 Bee allergy status
CPT/HCPCS: 0241U; 36600; 71045; 80053; 82803; 83605; 84484; 85025; 93005; 93010; 94640; 94664; 99285-25; A9270

== ENCOUNTER 2024-01-29 10:53 | Emergency (ER) | payer OTHER ==
[~2024-01-29] VITALS: Ht 162.6 cm; Wt 65.8 kg
[2024-01-29 13:00] VITALS: BP 156/98
== END 2024-01-29 13:39 | disposition home or self-care (01) ==
LOC: ER 10:53
DX: J45.901 Unspecified asthma with (acute) exacerbation (principal); F17.210 Nicotine dependence, cigarettes, uncomplicated; Z91.030 Bee allergy status; Z88.5 Allergy status to narcotic agent; Z88.8 Allergy status to other drugs, medicaments and biological substances; Z79.899 Other long term (current) drug therapy; Z79.4 Long term (current) use of insulin

== ENCOUNTER 2024-03-03 01:46 | Emergency (ER) | payer OTHER ==
[~2024-03-03] VITALS: Ht 162.6 cm; Wt 65.8 kg
[~2024-03-03 01:46] MED LIST changes: +FLUT1DIS5 INH; +PRED20 PO; +Tessalon Perle100 MG PO
[2024-03-03] MEDS ORDERED: Ipratropium/Albuterol SulF 2.5-0.5MG/3 ML Amp INH ONE (02:00)
[2024-03-03] MEDS ORDERED: Prednisone20 MG PO (02:59)
[2024-03-03 03:00] VITALS: BP 124/75
[2024-03-03] MEDS ORDERED: PredniSONE 20 MG Tab PO ONE (03:00)
[2024-03-03] MEDS ORDERED: RX Prepack Albuterol 1 PREPACK/6.7 GM INH UD ONE (03:00)
== END 2024-03-03 03:19 | disposition home or self-care (01) ==
LOC: ER 01:46
DX: J45.901 Unspecified asthma with (acute) exacerbation (principal); F17.200 Nicotine dependence, unspecified, uncomplicated; Z79.4 Long term (current) use of insulin; Z79.899 Other long term (current) drug therapy; Z91.038 Other insect allergy status; Z88.5 Allergy status to narcotic agent; Z88.8 Allergy status to other drugs, medicaments and biological substances
CPT/HCPCS: 71046; 94640; 94664; 99285-25; A9270; J7512

== ENCOUNTER 2024-04-16 09:00 | Emergency (ER) | payer OTHER ==
[~2024-04-16] VITALS: Ht 162.6 cm; Wt 65.8 kg
[~2024-04-16 09:00] MED LIST changes: +Prednisone20 MG PO
[2024-04-16] MEDS ORDERED: Ondansetron HCl 2 MG / ML 2ML Vial IV ONE (09:45)
[2024-04-16] MEDS ORDERED: Albuterol 2.5 MG/3 ML VIAL INH SCH (09:45)
[2024-04-16] MEDS ORDERED: NS 1,000 ML IV SCH (09:45)
[2024-04-16 10:18] LABS: Source, Urine Clean Catch
[2024-04-16 10:24] LABS: Appearance, Urine Hazy (Clear); Blood, Urine 2+ (Neg); Color, Urine Yellow (P-Yellow); Glucose Qualitative, Urine Neg (Neg); Ketones, Urine 3+ (Neg); Leukocyte Esterase, Urine 1+ (Neg); Nitrite, Urine Pos (Neg); Protein, Urine 3+ (Neg); Specific Gravity, Urine 1.025 (1.003-1.022); Urobilinogen, Urine 2+ (Normal)
[2024-04-16 10:32] LABS: Bilirubin, Urine 1+ (Neg)
[2024-04-16 10:33] LABS: Squamous Epithelial Cells Many /hpf (Few)
[2024-04-16 10:34] LABS: Bacteria Few /hpf; Mucus Heavy (0-Heavy)
[2024-04-16 11:10] LABS: BASOPHILS ABSOLUTE AUTO 0.03 K/mm3 (0.00-0.23); BASOPHILS PERCENT AUTO 0 % (0-2); EOSINOPHILS PERCENT AUTO 0 % (0-6); Hemoglobin 14.8 g/dL (11.5-16.0); IMMATURE GRAN ABSOLUTE AUTO 0.03 K/mm3 (0.00-0.10); IMMATURE GRAN PERCENT AUTO 0 % (0-1); LYMPHOCYTES PERCENT AUTO 23 % (21-46); MONOCYTES ABSOLUTE AUTO 1.02 K/mm3 (0.16-1.47); MONOCYTES PERCENT AUTO 8 % (4-13); Mean Corpuscular HGB 31.6 pg (26.0-34.0); Mean Corpuscular HGB Conc 32.9 g/dL (31.5-36.5); Mean Corpuscular Volume 96 fL (80-100); Mean Platelet Volume 12.8 fL (9.1-12.4); NEUTROPHILS PERCENT AUTO 68 % (41-73); Platelet Count 171 K/mm3 (150-400); RDW Coefficient Variation 13.9 % (11.7-14.2); RDW Standard Deviation 49.3 fL (35.1-46.3); Red Blood Cell Count 4.68 M/mm3 (3.80-5.20); White Blood Cell Count 12.18 K/mm3 (4.00-11.30)
[2024-04-16 11:25] LABS: Albumin, Blood 3.7 g/dL (3.4-5.0); Bilirubin, Total 1.4 mg/dL (0.1-1.0); Bun/Creatinine Ratio 33.7 (12.0-20.0); Calcium, Blood 8.7 mg/dL (8.5-10.1); Creatinine, Blood 0.53 mg/dL (0.40-1.00); Globulin, Blood 3.7 g/dL (2.2-4.0); Potassium, Blood 3.8 mmol/L (3.5-5.5); Total Protein, Blood 7.4 g/dL (6.4-8.2)
[2024-04-16 11:32] LABS: PCO2 Venous 46 mmHg (38-42); pH Blood Venous 7.39 (7.34-7.37)
[2024-04-16 11:33] LABS: Base Excess Venous 2.9 mmol/L; Bicarbonate Venous 26.2 mmol/L (24.0-30.0)
[2024-04-16] MEDS ORDERED: CefTRIAXone Sodium 1,000 MG in NS 100 ML IV ONE (12:00)
[2024-04-16] MEDS ORDERED: CEFP200 PO (12:27)
[2024-04-16 13:45] VITALS: BP 144/80
[2024-04-17] MEDS ORDERED: IBUP600 PO (07:12)
== END 2024-04-16 14:18 | disposition home or self-care (01) ==
LOC: ER 09:00
PROVIDERS: Emergency Medicine
DX: E11.649 Type 2 diabetes mellitus with hypoglycemia without coma (principal); N39.0 Urinary tract infection, site not specified; J45.901 Unspecified asthma with (acute) exacerbation; F17.200 Nicotine dependence, unspecified, uncomplicated; R11.2 Nausea with vomiting, unspecified; R19.7 Diarrhea, unspecified; Z79.4 Long term (current) use of insulin; Z79.52 Long term (current) use of systemic steroids; Z79.899 Other long term (current) drug therapy; Z88.5 Allergy status to narcotic agent; Z91.030 Bee allergy status; Z88.8 Allergy status to other drugs, medicaments and biological substances
CPT/HCPCS: 80053; 81001; 82803; 82947; 85025; 87086; 94644; 94664; 96361; 96365; 96375; 99284-25; J0696; J2405; J7030

== ENCOUNTER 2024-04-17 07:03 | Emergency (ER) | payer OTHER ==
[~2024-04-17] VITALS: Ht 162.6 cm; Wt 69.8 kg
[~2024-04-17 07:03] MED LIST changes: +CEFP200 PO
[2024-04-17] MEDS ORDERED: IBUP600 PO (07:12)
[2024-04-17 07:41] LABS: BASOPHILS ABSOLUTE AUTO 0.03 K/mm3 (0.00-0.23); BASOPHILS PERCENT AUTO 0 % (0-2); EOSINOPHILS PERCENT AUTO 0 % (0-6); Hematocrit 37.1 % (33.0-51.0); Hemoglobin 12.3 g/dL (11.5-16.0); IMMATURE GRAN ABSOLUTE AUTO 0.02 K/mm3 (0.00-0.10); IMMATURE GRAN PERCENT AUTO 0 % (0-1); LYMPHOCYTES ABSOLUTE AUTO 1.91 K/mm3 (0.84-5.20); LYMPHOCYTES PERCENT AUTO 20 % (21-46); MONOCYTES ABSOLUTE AUTO 0.78 K/mm3 (0.16-1.47); MONOCYTES PERCENT AUTO 8 % (4-13); Mean Corpuscular HGB 32.2 pg (26.0-34.0); Mean Corpuscular HGB Conc 33.2 g/dL (31.5-36.5); Mean Corpuscular Volume 97 fL (80-100); NEUTROPHILS PERCENT AUTO 71 % (41-73); Platelet Count 154 K/mm3 (150-400); RDW Coefficient Variation 14.1 % (11.7-14.2); RDW Standard Deviation 50.2 fL (35.1-46.3); Red Blood Cell Count 3.82 M/mm3 (3.80-5.20); White Blood Cell Count 9.54 K/mm3 (4.00-11.30)
[2024-04-17 07:58] LABS: Bun/Creatinine Ratio 32.5 (12.0-20.0); Calcium, Blood 7.8 mg/dL (8.5-10.1); Creatinine, Blood 0.46 mg/dL (0.40-1.00); Potassium, Blood 3.8 mmol/L (3.5-5.5)
[2024-04-17 09:11] VITALS: BP 118/103
== END 2024-04-17 09:53 | disposition home or self-care (01) ==
LOC: ER 07:03
PROVIDERS: Emergency Medicine
DX: E11.649 Type 2 diabetes mellitus with hypoglycemia without coma (principal); J44.89 Other specified chronic obstructive pulmonary disease; F17.200 Nicotine dependence, unspecified, uncomplicated; Z79.4 Long term (current) use of insulin; Z79.899 Other long term (current) drug therapy; Z88.5 Allergy status to narcotic agent; Z88.8 Allergy status to other drugs, medicaments and biological substances; Z91.030 Bee allergy status
CPT/HCPCS: 80048; 82947; 85025; 99285

== ENCOUNTER 2024-06-19 10:00 | Emergency (ER) | payer OTHER ==
[~2024-06-19] VITALS: Ht 162.6 cm; Wt 61.2 kg
[2024-06-19 10:06] VITALS: BP 130/89
[2024-06-19] MEDS ORDERED: Ondansetron HCl 2 MG / ML 2ML Vial IV PRN (10:10)
[2024-06-19 10:33] LABS: BASOPHILS ABSOLUTE AUTO 0.04 K/mm3 (0.00-0.23); BASOPHILS PERCENT AUTO 1 % (0-2); EOSINOPHILS ABSOLUTE AUTO 0.16 K/mm3 (0.00-0.68); EOSINOPHILS PERCENT AUTO 2 % (0-6); Hematocrit 36.9 % (33.0-51.0); Hemoglobin 12.1 g/dL (11.5-16.0); IMMATURE GRAN ABSOLUTE AUTO 0.01 K/mm3 (0.00-0.10); IMMATURE GRAN PERCENT AUTO 0 % (0-1); LYMPHOCYTES ABSOLUTE AUTO 2.47 K/mm3 (0.84-5.20); LYMPHOCYTES PERCENT AUTO 36 % (21-46); MONOCYTES ABSOLUTE AUTO 0.67 K/mm3 (0.16-1.47); MONOCYTES PERCENT AUTO 10 % (4-13); Mean Corpuscular HGB 31.8 pg (26.0-34.0); Mean Corpuscular HGB Conc 32.8 g/dL (31.5-36.5); Mean Corpuscular Volume 97 fL (80-100); NEUTROPHILS ABSOLUTE AUTO 3.49 K/mm3 (1.96-9.15); NEUTROPHILS PERCENT AUTO 51 % (41-73); Platelet Count 125 K/mm3 (150-400); RDW Coefficient Variation 12.4 % (11.7-14.2); RDW Standard Deviation 44.1 fL (35.1-46.3); White Blood Cell Count 6.84 K/mm3 (4.00-11.30)
[2024-06-19 10:36] LABS: Mean Platelet Volume 13.2 fL (9.1-12.4)
[2024-06-19 10:53] LABS: Albumin, Blood 3.2 g/dL (3.4-5.0); Albumin/Globulin Ratio 0.9 (0.8-1.8); Bilirubin, Total 0.2 mg/dL (0.1-1.0); Bun/Creatinine Ratio 25.3 (12.0-20.0); Calcium, Blood 8.3 mg/dL (8.5-10.1); Creatinine, Blood 0.51 mg/dL (0.40-1.00); Globulin, Blood 3.5 g/dL (2.2-4.0); Potassium, Blood 4.1 mmol/L (3.5-5.5); Total Protein, Blood 6.7 g/dL (6.4-8.2)
[2024-06-19] MEDS ORDERED: NS 1,000 ML IV SCH (12:45)
== END 2024-06-19 13:39 | disposition home or self-care (01) ==
LOC: ER 10:00
PROVIDERS: Student in an Organized Health Care Education/Training Program
DX: K52.9 Noninfective gastroenteritis and colitis, unspecified (principal); E11.9 Type 2 diabetes mellitus without complications; J45.909 Unspecified asthma, uncomplicated; F17.210 Nicotine dependence, cigarettes, uncomplicated
CPT/HCPCS: 80053; 83690; 85025; 96360; 99284-25; J2405; J7030

== ENCOUNTER 2024-08-19 10:32 | Emergency (ER) | payer OTHER ==
[~2024-08-19] VITALS: Ht 162.6 cm; Wt 63.5 kg
[2024-08-19 11:26] LABS: Source, Urine Clean Catch
[2024-08-19 11:29] LABS: Appearance, Urine Cloudy (Clear); Bilirubin, Urine Neg (Neg); Blood, Urine 5+ (Neg); Color, Urine Red (P-Yellow); Glucose Qualitative, Urine Neg (Neg); Ketones, Urine Neg (Neg); Leukocyte Esterase, Urine 2+ (Neg); Nitrite, Urine Neg (Neg); Protein, Urine 3+ (Neg); Urobilinogen, Urine NORM (Normal); pH, Urine 6.5 (5.0-8.0)
[2024-08-19 11:33] LABS: BASOPHILS ABSOLUTE AUTO 0.09 K/mm3 (0.00-0.23); BASOPHILS PERCENT AUTO 1 % (0-2); EOSINOPHILS PERCENT AUTO 2 % (0-6); Hematocrit 35.2 % (33.0-51.0); Hemoglobin 11.6 g/dL (11.5-16.0); IMMATURE GRAN ABSOLUTE AUTO 0.01 K/mm3 (0.00-0.10); IMMATURE GRAN PERCENT AUTO 0 % (0-1); LYMPHOCYTES ABSOLUTE AUTO 3.07 K/mm3 (0.84-5.20); LYMPHOCYTES PERCENT AUTO 46 % (21-46); MONOCYTES ABSOLUTE AUTO 0.75 K/mm3 (0.16-1.47); MONOCYTES PERCENT AUTO 11 % (4-13); Mean Corpuscular HGB 31.7 pg (26.0-34.0); Mean Corpuscular Volume 96 fL (80-100); Mean Platelet Volume 12.8 fL (9.1-12.4); NEUTROPHILS ABSOLUTE AUTO 2.65 K/mm3 (1.96-9.15); NEUTROPHILS PERCENT AUTO 40 % (41-73); Platelet Count 158 K/mm3 (150-400); RDW Coefficient Variation 12.9 % (11.7-14.2); RDW Standard Deviation 45.6 fL (35.1-46.3); Red Blood Cell Count 3.66 M/mm3 (3.80-5.20); White Blood Cell Count 6.67 K/mm3 (4.00-11.30)
[2024-08-19 11:46] LABS: International Normalized Ratio 0.94; Prothrombin Time Results 10.1 Sec (9.7-11.5)
[2024-08-19 11:50] LABS: Bacteria Mod /hpf; Red Blood Cells, Urine TNTC /hpf (0-2); Squamous Epithelial Cells Few /hpf (Few)
[2024-08-19 11:53] LABS: Alanine Aminotransfer (ALT/SGP 29 U/L (12-78); Albumin/Globulin Ratio 0.9 (0.8-1.8); Alk Phos 139 U/L (50-136); Anion Gap 10 mmol/L (3-11); Aspartate Aminotrans (AST/SGOT 14 U/L (12-37); Beta HCG, Quantitative, Serum <1 mIU/mL (0-3); Bilirubin, Total 0.3 mg/dL (0.1-1.0); Blood Urea Nitrogen 19 mg/dL (8-24); Bun/Creatinine Ratio 38.3 (12.0-20.0); CO2, Blood 26 mmol/L (21-32); Calcium, Blood 8.3 mg/dL (8.5-10.1); Chloride, Blood 109 mmol/L (98-108); Globulin, Blood 3.4 g/dL (2.2-4.0); Glomerular Filtration Rate 122 (60-); Glucose, Blood 141 mg/dL (70-99); Potassium, Blood 4.6 mmol/L (3.5-5.5); Sodium, Blood 140 mmol/L (136-145); Total Protein, Blood 6.4 g/dL (6.4-8.2)
[2024-08-19] MEDS ORDERED: OxyCODONE HCL 5 MG TAB PO ONE (12:00)
[2024-08-19 14:00] VITALS: BP 103/62
[2024-08-19] MEDS ORDERED: ONDA4ODT MM (14:20)
[2024-08-19] MEDS ORDERED: OXYC5 PO (14:20)
== END 2024-08-19 14:30 | disposition home or self-care (01) ==
LOC: ER 10:32
PROVIDERS: Student in an Organized Health Care Education/Training Program
DX: N93.9 Abnormal uterine and vaginal bleeding, unspecified (principal); N94.89 Other specified conditions associated with female genital organs and menstrual cycle; R25.2 Cramp and spasm; J44.89 Other specified chronic obstructive pulmonary disease; E11.9 Type 2 diabetes mellitus without complications; F17.200 Nicotine dependence, unspecified, uncomplicated; Z79.4 Long term (current) use of insulin; Z79.899 Other long term (current) drug therapy; Z91.030 Bee allergy status; Z88.5 Allergy status to narcotic agent; Z88.8 Allergy status to other drugs, medicaments and biological substances
CPT/HCPCS: 76830; 76856; 80053; 81001; 84702; 85025; 85610; 85730; 87086; 99284-25; A9270

== ENCOUNTER 2024-09-01 02:33 | Emergency (ER) | payer OTHER ==
[~2024-09-01] VITALS: Ht 162.6 cm; Wt 63.5 kg
[~2024-09-01 02:33] MED LIST changes: +OXYC5 PO
[2024-09-01 03:53] LABS: BASOPHILS ABSOLUTE AUTO 0.04 K/mm3 (0.00-0.23); BASOPHILS PERCENT AUTO 1 % (0-2); EOSINOPHILS PERCENT AUTO 0 % (0-6); Hemoglobin 11.6 g/dL (11.5-16.0); IMMATURE GRAN PERCENT AUTO 0 % (0-1); LYMPHOCYTES ABSOLUTE AUTO 2.32 K/mm3 (0.84-5.20); LYMPHOCYTES PERCENT AUTO 31 % (21-46); MONOCYTES ABSOLUTE AUTO 1.19 K/mm3 (0.16-1.47); MONOCYTES PERCENT AUTO 16 % (4-13); Mean Corpuscular HGB 30.9 pg (26.0-34.0); Mean Corpuscular HGB Conc 32.2 g/dL (31.5-36.5); Mean Corpuscular Volume 96 fL (80-100); Mean Platelet Volume 12.7 fL (9.1-12.4); NEUTROPHILS ABSOLUTE AUTO 3.89 K/mm3 (1.96-9.15); NEUTROPHILS PERCENT AUTO 52 % (41-73); Platelet Count 123 K/mm3 (150-400); RDW Coefficient Variation 13.1 % (11.7-14.2); RDW Standard Deviation 46.5 fL (35.1-46.3); Red Blood Cell Count 3.75 M/mm3 (3.80-5.20); White Blood Cell Count 7.44 K/mm3 (4.00-11.30)
[2024-09-01 04:18] LABS: Albumin, Blood 2.9 g/dL (3.4-5.0); Albumin/Globulin Ratio 0.6 (0.8-1.8); Bilirubin, Total 0.3 mg/dL (0.1-1.0); Bun/Creatinine Ratio 31.7 (12.0-20.0); Calcium, Blood 8.6 mg/dL (8.5-10.1); Creatinine, Blood 0.54 mg/dL (0.40-1.00); Globulin, Blood 4.5 g/dL (2.2-4.0); Total Protein, Blood 7.4 g/dL (6.4-8.2)
[2024-09-01 04:28] LABS: Influenza A, PCR NEGATIVE (NEGATIVE); Influenza B, PCR NEGATIVE (NEGATIVE); Resp Syncytial Virus, PCR NEGATIVE (NEGATIVE); SARS-Cov-2 (COVID-19) PCR, MMC NEGATIVE (NEGATIVE)
[2024-09-01 04:30] VITALS: BP 122/68
[2024-09-01] MEDS ORDERED: AZIT250 PO (04:50)
== END 2024-09-01 05:08 | disposition home or self-care (01) ==
LOC: ER 02:33
PROVIDERS: Student in an Organized Health Care Education/Training Program
DX: J18.9 Pneumonia, unspecified organism (principal); J44.0 Chronic obstructive pulmonary disease with (acute) lower respiratory infection; E11.9 Type 2 diabetes mellitus without complications; F17.210 Nicotine dependence, cigarettes, uncomplicated; Q93.81 Velo-cardio-facial syndrome; Z88.5 Allergy status to narcotic agent; Z91.030 Bee allergy status; Z88.8 Allergy status to other drugs, medicaments and biological substances; Z79.4 Long term (current) use of insulin; Z79.899 Other long term (current) drug therapy; Z11.52 Encounter for screening for COVID-19
CPT/HCPCS: 0241U; 71045; 80053; 84484; 85025; 93005; 93010; 99285-25

== ENCOUNTER 2024-09-08 11:27 | Emergency (ER) | payer OTHER ==
[~2024-09-08] VITALS: Ht 162.6 cm; Wt 67.6 kg
[2024-09-08 11:44] VITALS: BP 127/96
[2024-09-08 12:30] LABS: BASOPHILS ABSOLUTE AUTO 0.09 K/mm3 (0.00-0.23); BASOPHILS PERCENT AUTO 1 % (0-2); EOSINOPHILS PERCENT AUTO 0 % (0-6); Hematocrit 40.1 % (33.0-51.0); Hemoglobin 13.4 g/dL (11.5-16.0); IMMATURE GRAN ABSOLUTE AUTO 0.03 K/mm3 (0.00-0.10); IMMATURE GRAN PERCENT AUTO 0 % (0-1); LYMPHOCYTES ABSOLUTE AUTO 3.06 K/mm3 (0.84-5.20); LYMPHOCYTES PERCENT AUTO 29 % (21-46); MONOCYTES ABSOLUTE AUTO 0.86 K/mm3 (0.16-1.47); MONOCYTES PERCENT AUTO 8 % (4-13); Mean Corpuscular HGB 31.8 pg (26.0-34.0); Mean Corpuscular HGB Conc 33.4 g/dL (31.5-36.5); Mean Corpuscular Volume 95 fL (80-100); Mean Platelet Volume 11.8 fL (9.1-12.4); NEUTROPHILS ABSOLUTE AUTO 6.39 K/mm3 (1.96-9.15); NEUTROPHILS PERCENT AUTO 61 % (41-73); Platelet Count 222 K/mm3 (150-400); RDW Coefficient Variation 12.5 % (11.7-14.2); RDW Standard Deviation 43.5 fL (35.1-46.3); Red Blood Cell Count 4.22 M/mm3 (3.80-5.20); White Blood Cell Count 10.43 K/mm3 (4.00-11.30)
[2024-09-08 12:51] LABS: Albumin, Blood 3.2 g/dL (3.4-5.0); Albumin/Globulin Ratio 0.7 (0.8-1.8); Bilirubin, Total 0.3 mg/dL (0.1-1.0); Bun/Creatinine Ratio 35.1 (12.0-20.0); Creatinine, Blood 0.43 mg/dL (0.40-1.00); Globulin, Blood 4.4 g/dL (2.2-4.0); Potassium, Blood 4.9 mmol/L (3.5-5.5); Total Protein, Blood 7.6 g/dL (6.4-8.2)
[2024-09-08] MEDS ORDERED: Ipratropium Bromide INH 0.02% 0.5 mg/2.5ML Vial INH SCH (15:25)
[2024-09-08] MEDS ORDERED: Albuterol 2.5 MG/3 ML VIAL INH SCH (15:25)
[2024-09-08] MEDS ORDERED: dexAMETHasone 4 MG TAB PO ONE (15:30)
[2024-09-12] MEDS ORDERED: TRAZ50 PO (12:22)
[2024-09-12] MEDS ORDERED: Buspirone HCl15 MG PO (12:23)
[2024-09-12] MEDS ORDERED: INSULANI (12:24)
[2024-09-12] MEDS ORDERED: MONT10T PO (12:25)
[2024-09-12] MEDS ORDERED: FLUTICASONE-SA1 EAC2 INH (12:25)
[2024-09-12] MEDS ORDERED: NOVOLOG100 UNIT/2 (12:27)
[2024-09-12] MEDS ORDERED: MELATONIN5 M1 PO (17:54)
[2024-09-15] MEDS ORDERED: BASAGLAR K100 UNIT/1 SC (13:01)
[2024-09-15] MEDS ORDERED: IPRAT-ALBUT 0.5-3 ML INH (13:02)
[2024-09-15] MEDS ORDERED: NICO21TP TOP (13:02)
[2024-09-15] MEDS ORDERED: PRED20 PO (13:04)
== END 2024-09-08 17:53 | disposition home or self-care (01) ==
LOC: ER 11:27
PROVIDERS: Physician Assistant
DX: J44.0 Chronic obstructive pulmonary disease with (acute) lower respiratory infection (principal); J18.9 Pneumonia, unspecified organism; J45.901 Unspecified asthma with (acute) exacerbation; E11.51 Type 2 diabetes mellitus with diabetic peripheral angiopathy without gangrene; F17.210 Nicotine dependence, cigarettes, uncomplicated; Z88.5 Allergy status to narcotic agent; Z88.8 Allergy status to other drugs, medicaments and biological substances; Z91.030 Bee allergy status; Z79.899 Other long term (current) drug therapy
CPT/HCPCS: 71046; 80053; 85025; 94644; 94664; 99285-25

== ENCOUNTER 2024-09-24 22:47 | Emergency (ER) | payer OTHER ==
[~2024-09-24] VITALS: Ht 162.6 cm; Wt 67.6 kg
[~2024-09-24 22:47] MED LIST changes: +BASAGLAR K100 UNIT/1 SC; +Buspirone HCl15 MG PO; +FLUTICASONE-SA1 EAC2 INH; +INSULANI; +MELATONIN5 M1 PO; +NICO21TP TOP; +NOVOLOG100 UNIT/2; +TRAZ50 PO
[2024-09-24 23:33] LABS: BASOPHILS ABSOLUTE AUTO 0.02 K/mm3 (0.00-0.23); BASOPHILS PERCENT AUTO 0 % (0-2); EOSINOPHILS PERCENT AUTO 0 % (0-6); Hematocrit 39.1 % (33.0-51.0); IMMATURE GRAN ABSOLUTE AUTO 0.06 K/mm3 (0.00-0.10); IMMATURE GRAN PERCENT AUTO 1 % (0-1); LYMPHOCYTES ABSOLUTE AUTO 4.78 K/mm3 (0.84-5.20); LYMPHOCYTES PERCENT AUTO 37 % (21-46); MONOCYTES ABSOLUTE AUTO 1.08 K/mm3 (0.16-1.47); MONOCYTES PERCENT AUTO 8 % (4-13); Mean Corpuscular HGB 31.9 pg (26.0-34.0); Mean Corpuscular HGB Conc 33.2 g/dL (31.5-36.5); Mean Corpuscular Volume 96 fL (80-100); Mean Platelet Volume 11.7 fL (9.1-12.4); NEUTROPHILS ABSOLUTE AUTO 6.98 K/mm3 (1.96-9.15); NEUTROPHILS PERCENT AUTO 54 % (41-73); Platelet Count 179 K/mm3 (150-400); RDW Coefficient Variation 13.2 % (11.7-14.2); RDW Standard Deviation 45.9 fL (35.1-46.3); Red Blood Cell Count 4.07 M/mm3 (3.80-5.20); White Blood Cell Count 12.92 K/mm3 (4.00-11.30)
[2024-09-24 23:53] LABS: Base Excess Venous 8.5 mmol/L; Bicarbonate Venous 31.2 mmol/L (24.0-30.0); PCO2 Venous 46.5 mmHg (38-42); pH Blood Venous 7.45 (7.34-7.37)
[2024-09-25 00:09] LABS: Albumin, Blood 3.4 g/dL (3.4-5.0); Bilirubin, Total 0.3 mg/dL (0.1-1.0); Bun/Creatinine Ratio 34.1 (12.0-20.0); Calcium, Blood 8.5 mg/dL (8.5-10.1); Creatinine, Blood 0.44 mg/dL (0.40-1.00); Globulin, Blood 3.4 g/dL (2.2-4.0); Potassium, Blood 4.4 mmol/L (3.5-5.5); Total Protein, Blood 6.8 g/dL (6.4-8.2)
[2024-09-25 01:15] LABS: Beta-hydroxybutyrate 0.8 mg/dL (0.2-2.8)
[2024-09-25] MEDS ORDERED: NS 1,000 ML IV SCH (01:15)
[2024-09-25 02:30] VITALS: BP 163/94
== END 2024-09-25 02:43 | disposition home or self-care (01) ==
LOC: ER 22:47
PROVIDERS: Emergency Medicine
DX: E10.65 Type 1 diabetes mellitus with hyperglycemia (principal); D72.829 Elevated white blood cell count, unspecified; R06.02 Shortness of breath; J44.89 Other specified chronic obstructive pulmonary disease; E10.51 Type 1 diabetes mellitus with diabetic peripheral angiopathy without gangrene; E10.10 Type 1 diabetes mellitus with ketoacidosis without coma; F17.210 Nicotine dependence, cigarettes, uncomplicated; Z79.52 Long term (current) use of systemic steroids; Z79.4 Long term (current) use of insulin; Z79.899 Other long term (current) drug therapy; Z91.030 Bee allergy status; Z88.5 Allergy status to narcotic agent; Z88.8 Allergy status to other drugs, medicaments and biological substances
CPT/HCPCS: 80053; 82010; 82803; 82947; 85025; 99285; J7030

== ENCOUNTER 2024-09-28 08:54 | Emergency (ER) | payer OTHER ==
[~2024-09-28] VITALS: Ht 162.6 cm; Wt 58.0 kg
[2024-09-28] MEDS ORDERED: Dexamethasone Sod Phos 10 MG/ML 1ML VIAL PO ONE (09:30)
[2024-09-28] MEDS ORDERED: Ipratropium/Albuterol SulF 2.5-0.5MG/3 ML Amp INH ONE (09:30)
[2024-09-28 09:56] LABS: CORONAVIRUS COVID-19 AG Negative (NEGATIVE); INFLUENZA A AG Negative (NEGATIVE); INFLUENZA B AG Negative (NEGATIVE)
[2024-09-28] MEDS ORDERED: NS 1,000 ML IV SCH (12:15)
[2024-09-28 12:24] LABS: BASOPHILS ABSOLUTE AUTO 0.02 K/mm3 (0.00-0.23); BASOPHILS PERCENT AUTO 0 % (0-2); EOSINOPHILS PERCENT AUTO 0 % (0-6); Hematocrit 40.8 % (33.0-51.0); Hemoglobin 13.2 g/dL (11.5-16.0); IMMATURE GRAN ABSOLUTE AUTO 0.04 K/mm3 (0.00-0.10); IMMATURE GRAN PERCENT AUTO 0 % (0-1); LYMPHOCYTES ABSOLUTE AUTO 0.86 K/mm3 (0.84-5.20); LYMPHOCYTES PERCENT AUTO 8 % (21-46); MONOCYTES ABSOLUTE AUTO 0.31 K/mm3 (0.16-1.47); MONOCYTES PERCENT AUTO 3 % (4-13); Mean Corpuscular HGB 31.3 pg (26.0-34.0); Mean Corpuscular HGB Conc 32.4 g/dL (31.5-36.5); Mean Corpuscular Volume 97 fL (80-100); Mean Platelet Volume 12.4 fL (9.1-12.4); NEUTROPHILS ABSOLUTE AUTO 9.62 K/mm3 (1.96-9.15); NEUTROPHILS PERCENT AUTO 89 % (41-73); Platelet Count 115 K/mm3 (150-400); RDW Coefficient Variation 13.5 % (11.7-14.2); RDW Standard Deviation 47.4 fL (35.1-46.3); Red Blood Cell Count 4.22 M/mm3 (3.80-5.20); White Blood Cell Count 10.85 K/mm3 (4.00-11.30)
[2024-09-28 12:42] LABS: Albumin, Blood 3.3 g/dL (3.4-5.0); Albumin/Globulin Ratio 0.9 (0.8-1.8); Bilirubin, Total 0.2 mg/dL (0.1-1.0); Bun/Creatinine Ratio 25.8 (12.0-20.0); Creatinine, Blood 0.47 mg/dL (0.40-1.00); Globulin, Blood 3.7 g/dL (2.2-4.0); Potassium, Blood 4.4 mmol/L (3.5-5.5)
[2024-09-28 13:17] LABS: Base Excess Venous 4.3 mmol/L; Bicarbonate Venous 27.6 mmol/L (24.0-30.0); PCO2 Venous 45.4 mmHg (38-42); pH Blood Venous 7.41 (7.34-7.37)
[2024-09-28 14:16] LABS: U Amphetamine Screen Not Detected; U Barbituate Screen Not Detected; U Benzodiazapine Screen Not Detected; U Buprenorphine Screen Not Detected; U Cannabinoids Screen Not Detected; U Cocaine Screen Not Detected; U Methadone Screen Not Detected; U Methamphetamine Screen Not Detected; U Opiates Screen Not Detected; U Oxycodone Screen Not Detected; U Phencyclidine Screen Not Detected
[2024-09-28 15:00] VITALS: BP 156/96
[2024-09-28] MEDS ORDERED: BENZ100A PO (15:10)
[2024-09-28] MEDS ORDERED: PRED20 PO (15:10)
== END 2024-09-28 15:21 | disposition home or self-care (01) ==
LOC: ER 08:54
PROVIDERS: Physician Assistant; Student in an Organized Health Care Education/Training Program
DX: R06.02 Shortness of breath (principal); E10.10 Type 1 diabetes mellitus with ketoacidosis without coma; E10.51 Type 1 diabetes mellitus with diabetic peripheral angiopathy without gangrene; J44.89 Other specified chronic obstructive pulmonary disease; F17.210 Nicotine dependence, cigarettes, uncomplicated; Z79.4 Long term (current) use of insulin; Z79.52 Long term (current) use of systemic steroids; Z79.899 Other long term (current) drug therapy; Z79.51 Long term (current) use of inhaled steroids; Z91.030 Bee allergy status; Z88.5 Allergy status to narcotic agent; Z88.8 Allergy status to other drugs, medicaments and biological substances
CPT/HCPCS: 36415; 71046; 80053; 82803; 83690; 84484; 85025; 85379; 87428-QW; 93005; 93010; 94640; 94664; 96360; 99285-25; J1100; J7030

== ENCOUNTER 2024-10-04 16:25 | Emergency (ER) | payer OTHER ==
[~2024-10-04] VITALS: Ht 162.6 cm; Wt 65.8 kg
[2024-10-04] MEDS ORDERED: EPINEPHrine HCL 11.25 MG/0.5 ML VIAL ONE (16:42)
[2024-10-04] MEDS ORDERED: EPINEPHrine HCL 11.25 MG/0.5 ML VIAL INH ONE (16:45)
[2024-10-04 16:58] LABS: Hematocrit 40.7 % (33.0-51.0); Hemoglobin 13.3 g/dL (11.5-16.0); Mean Corpuscular HGB 31.6 pg (26.0-34.0); Mean Corpuscular HGB Conc 32.7 g/dL (31.5-36.5); Mean Corpuscular Volume 97 fL (80-100); Mean Platelet Volume 12.1 fL (9.1-12.4); Platelet Count 180 K/mm3 (150-400); RDW Coefficient Variation 13.8 % (11.7-14.2); RDW Standard Deviation 49.2 fL (35.1-46.3); Red Blood Cell Count 4.21 M/mm3 (3.80-5.20); White Blood Cell Count 10.36 K/mm3 (4.00-11.30)
[2024-10-04] MEDS ORDERED: Mag Sulfate 1 GM/D5% 100ML 100 ML IV ONE (17:15)
[2024-10-04] MEDS ORDERED: Albuterol 2.5 MG/3 ML VIAL INH SCH (17:15)
[2024-10-04] MEDS ORDERED: MethylPREDNISolone Sod Succ 125 MG Vial IV ONE (17:15)
[2024-10-04 17:25] LABS: Albumin/Globulin Ratio 0.8 (0.8-1.8); BASOPHILS PERCENT MAN 0 % (0-2); Bilirubin, Total 0.2 mg/dL (0.1-1.0); Bun/Creatinine Ratio 47.7 (12.0-20.0); Calcium, Blood 8.7 mg/dL (8.5-10.1); Creatinine, Blood 0.42 mg/dL (0.40-1.00); EOSINOPHILS ABSOLUTE MAN 0.41 K/mm3 (0.00-0.68); EOSINOPHILS PERCENT MAN 4 % (0-6); Globulin, Blood 3.8 g/dL (2.2-4.0); LYMPHOCYTES ABSOLUTE MAN 4.76 K/mm3 (0.84-5.20); LYMPHOCYTES PERCENT MAN 46 % (21-46); MONOCYTES ABSOLUTE MAN 0.62 K/mm3 (0.16-1.47); MONOCYTES PERCENT MAN 6 % (4-13); NEUTROPHILS ABSOLUTE MAN 4.55 K/mm3 (1.96-9.15); Potassium, Blood 4.7 mmol/L (3.5-5.5); SEG NEUTROPHILS PERCENT MAN 44 % (41-73); TOTAL CELLS COUNTED 100; Total Protein, Blood 6.8 g/dL (6.4-8.2)
[2024-10-04 18:14] LABS: CORONAVIRUS COVID-19 AG Negative (NEGATIVE); INFLUENZA A AG Negative (NEGATIVE); INFLUENZA B AG Negative (NEGATIVE)
[2024-10-04 19:00] VITALS: BP 102/72
[2024-10-04] MEDS ORDERED: ACET500 PO (19:13)
[2024-10-04] MEDS ORDERED: IBUP600 PO (19:13)
== END 2024-10-04 19:46 | disposition home or self-care (01) ==
LOC: ER 16:25
PROVIDERS: Student in an Organized Health Care Education/Training Program
DX: J44.89 Other specified chronic obstructive pulmonary disease (principal); J45.901 Unspecified asthma with (acute) exacerbation; E10.10 Type 1 diabetes mellitus with ketoacidosis without coma; E10.51 Type 1 diabetes mellitus with diabetic peripheral angiopathy without gangrene; F17.210 Nicotine dependence, cigarettes, uncomplicated; Z79.52 Long term (current) use of systemic steroids; Z79.51 Long term (current) use of inhaled steroids; Z79.4 Long term (current) use of insulin; Z91.030 Bee allergy status; Z88.8 Allergy status to other drugs, medicaments and biological substances
CPT/HCPCS: 71045; 80053; 82947; 84703; 85025; 87428-QW; 93005; 93010; 94640; 94664; 96365; 96366; 96375; 99285-25; J2919; J3475

== ENCOUNTER 2024-10-27 19:22 | Emergency (ER) | payer OTHER ==
[~2024-10-27] VITALS: Ht 162.6 cm; Wt 63.5 kg
[~2024-10-27 19:22] MED LIST changes: +ACET500 PO
[2024-10-27 20:01] LABS: BASOPHILS ABSOLUTE AUTO 0.03 K/mm3 (0.00-0.23); BASOPHILS PERCENT AUTO 0 % (0-2); EOSINOPHILS ABSOLUTE AUTO 0.14 K/mm3 (0.00-0.68); EOSINOPHILS PERCENT AUTO 2 % (0-6); Hematocrit 40.6 % (33.0-51.0); Hemoglobin 13.3 g/dL (11.5-16.0); IMMATURE GRAN ABSOLUTE AUTO 0.05 K/mm3 (0.00-0.10); IMMATURE GRAN PERCENT AUTO 1 % (0-1); LYMPHOCYTES ABSOLUTE AUTO 3.22 K/mm3 (0.84-5.20); LYMPHOCYTES PERCENT AUTO 42 % (21-46); MONOCYTES ABSOLUTE AUTO 0.81 K/mm3 (0.16-1.47); MONOCYTES PERCENT AUTO 11 % (4-13); Mean Corpuscular HGB 30.4 pg (26.0-34.0); Mean Corpuscular HGB Conc 32.8 g/dL (31.5-36.5); Mean Corpuscular Volume 93 fL (80-100); Mean Platelet Volume 12.8 fL (9.1-12.4); NEUTROPHILS ABSOLUTE AUTO 3.44 K/mm3 (1.96-9.15); NEUTROPHILS PERCENT AUTO 45 % (41-73); Platelet Count 211 K/mm3 (150-400); RDW Coefficient Variation 12.9 % (11.7-14.2); RDW Standard Deviation 43.8 fL (35.1-46.3); Red Blood Cell Count 4.38 M/mm3 (3.80-5.20); White Blood Cell Count 7.69 K/mm3 (4.00-11.30)
[2024-10-27 20:05] LABS: Albumin, Blood 3.2 g/dL (3.4-5.0); Albumin/Globulin Ratio 0.8 (0.8-1.8); Bilirubin, Total 0.3 mg/dL (0.1-1.0); Bun/Creatinine Ratio 40.5 (12.0-20.0); Calcium, Blood 8.7 mg/dL (8.5-10.1); Creatinine, Blood 0.37 mg/dL (0.40-1.00); Potassium, Blood 3.9 mmol/L (3.5-5.5); Total Protein, Blood 7.2 g/dL (6.4-8.2)
[2024-10-27 20:45] VITALS: BP 151/96
== END 2024-10-27 20:57 | disposition home or self-care (01) ==
LOC: ER 19:22
PROVIDERS: Emergency Medicine
DX: R10.11 Right upper quadrant pain (principal); E10.51 Type 1 diabetes mellitus with diabetic peripheral angiopathy without gangrene; J44.89 Other specified chronic obstructive pulmonary disease; M81.0 Age-related osteoporosis without current pathological fracture; F17.210 Nicotine dependence, cigarettes, uncomplicated; Z91.030 Bee allergy status; Z88.5 Allergy status to narcotic agent; Z88.8 Allergy status to other drugs, medicaments and biological substances; Z79.4 Long term (current) use of insulin; Z79.52 Long term (current) use of systemic steroids; Z79.899 Other long term (current) drug therapy
CPT/HCPCS: 76705; 80053; 83690; 85025; 99285-25

== ENCOUNTER 2024-10-31 12:18 | Inpatient (IN) | payer OTHER ==
[~2024-10-31] VITALS: Ht 162.6 cm; Wt 40.3 kg
[~2024-10-31 12:18] MED LIST changes: -ALBU2.5V5 INH; -Celexa20 MG PO; -FLUT1DIS2 INH; -HYDCHL25 PO; -Nicoderm Cq1 EAC1 TOP; -PROAIR RESPICL90 MCG INH; -XOPENEX HFA15 GM INH
[2024-10-31] MEDS ORDERED: Ondansetron HCl 2 MG / ML 2ML Vial IV ONE (12:35)
[2024-10-31] MEDS ORDERED: Ipratropium/Albuterol SulF 2.5-0.5MG/3 ML Amp INH ONE (12:35)
[2024-10-31 12:45] LABS: BASOPHILS ABSOLUTE AUTO 0.03 K/mm3 (0.00-0.23); BASOPHILS PERCENT AUTO 0 % (0-2); EOSINOPHILS ABSOLUTE AUTO 0.14 K/mm3 (0.00-0.68); EOSINOPHILS PERCENT AUTO 2 % (0-6); Hematocrit 42.8 % (33.0-51.0); Hemoglobin 13.5 g/dL (11.5-16.0); IMMATURE GRAN ABSOLUTE AUTO 0.02 K/mm3 (0.00-0.10); IMMATURE GRAN PERCENT AUTO 0 % (0-1); LYMPHOCYTES ABSOLUTE AUTO 3.01 K/mm3 (0.84-5.20); LYMPHOCYTES PERCENT AUTO 40 % (21-46); MONOCYTES ABSOLUTE AUTO 1.11 K/mm3 (0.16-1.47); MONOCYTES PERCENT AUTO 15 % (4-13); Mean Corpuscular HGB 30.7 pg (26.0-34.0); Mean Corpuscular HGB Conc 31.5 g/dL (31.5-36.5); Mean Corpuscular Volume 97 fL (80-100); Mean Platelet Volume 12.6 fL (9.1-12.4); NEUTROPHILS ABSOLUTE AUTO 3.25 K/mm3 (1.96-9.15); NEUTROPHILS PERCENT AUTO 43 % (41-73); Platelet Count 186 K/mm3 (150-400); RDW Coefficient Variation 13.1 % (11.7-14.2); White Blood Cell Count 7.56 K/mm3 (4.00-11.30)
[2024-10-31 12:57] LABS: Base Excess Venous 7.1 mmol/L; Bicarbonate Venous 28.9 mmol/L (24.0-30.0); PCO2 Venous 63.9 mmHg (38-42); pH Blood Venous 7.32 (7.34-7.37)
[2024-10-31 13:02] LABS: Albumin, Blood 3.1 g/dL (3.4-5.0); Albumin/Globulin Ratio 0.8 (0.8-1.8); Bilirubin, Total 0.2 mg/dL (0.1-1.0); Bun/Creatinine Ratio 31.3 (12.0-20.0); Calcium, Blood 8.3 mg/dL (8.5-10.1); Creatinine, Blood 0.38 mg/dL (0.40-1.00); Globulin, Blood 3.7 g/dL (2.2-4.0); Potassium, Blood 4.2 mmol/L (3.5-5.5); Total Protein, Blood 6.8 g/dL (6.4-8.2)
[2024-10-31] MEDS ORDERED: MethylPREDNISolone Sod Succ 125 MG Vial IV ONE (13:15)
[2024-10-31 13:54] LABS: Influenza A, PCR NEGATIVE (NEGATIVE); Influenza B, PCR NEGATIVE (NEGATIVE); Resp Syncytial Virus, PCR NEGATIVE (NEGATIVE); SARS-Cov-2 (COVID-19) PCR, MMC NEGATIVE (NEGATIVE)
[2024-10-31] MEDS ORDERED: FLU VACC TS2024-25(6MOS UP)/PF 45 MCG/0.5 ML SYRINGE IM ONE (14:30)
[2024-10-31] MEDS ORDERED: Ondansetron HCl 2 MG / ML 2ML Vial IV PRN (15:30)
[2024-10-31] MEDS ORDERED: Albuterol 2.5 MG/3 ML VIAL INH PRN (15:35)
[2024-10-31 15:44] VITALS: BP 139/84
[2024-10-31] MEDS ORDERED: FLUT1DIS2 INH (15:54)
[2024-10-31] MEDS ORDERED: ALBU2.5V5 INH (15:55)
[2024-10-31] MEDS ORDERED: Celexa20 MG PO (15:57)
[2024-10-31] MEDS ORDERED: PROAIR RESPICL90 MCG INH (15:57)
[2024-10-31] MEDS ORDERED: FLUT1DIS5 INH (15:59)
[2024-10-31] MEDS ORDERED: HYDCHL25 PO (16:01)
[2024-10-31] MEDS ORDERED: Nicoderm Cq1 EAC1 TOP (16:02)
[2024-10-31] MEDS ORDERED: OXYC5 PO (16:03)
[2024-10-31] MEDS ORDERED: ONDA4ODT MM (16:03)
[2024-10-31] MEDS ORDERED: XOPENEX HFA15 GM INH (16:06)
[2024-10-31] MEDS ORDERED: OxyCODONE HCL 5 MG TAB PO PRN (16:30)
[2024-10-31] MEDS ORDERED: Ipratropium/Albuterol SulF 2.5-0.5MG/3 ML Amp INH SCH ×2 (16:30→19:36)
[2024-10-31] MEDS ORDERED: Insulin Human Lispro 100 Units/ML 3ML Syringe SC SCH (16:30)
[2024-10-31] MEDS ORDERED: Mometasone/Formoterol MDI 200/5 mcg 13 GM INH SCH (16:35)
[2024-10-31] MEDS ORDERED: Albuterol HFA200 ACT/6.7 GM INH INH PRN (16:35)
--- NOTE | 2024-10-31 17:54 | NUR ---
"Spiritual Care | Pt. request Pt. is awake in bed and welcomes my visit. The Pt. is known to this legal document specialist from previous hospital visits. Rapport is quickly re-established. Pt. displays evidence of a positive disposition despite her current symptoms. Pt. verbalizes details of her ritesh and growth in the past year. Pt. also verbalizes that she has weaned her smoking habit down to four cigarettes/day. Listen with empathy, and proud exciting for the growth and personal accomplishements. Naomi vila Pt. Pt. verbalized gratitude for the spiritual care visit."
[2024-10-31] MEDS ORDERED: MethylPREDNISolone Sod Succ 125 MG Vial IV SCH (18:00)
--- NOTE | 2024-10-31 18:03 | NUR ---
ADMISSION NOTE/SHIFT SUMMARY PATIENT A/OX4, ABLE TO MAKE NEEDS KNOWN. PLEASANT AND COOPERATIVE WITH CARE. ADMISSION DOCUMENTATION COMPLETED. PATIENT WITH 2 LPM OXYGEN VIA NASAL CANNULA UPON ADMISSION. HAS BEEN TITRATED OFF TO ROOM AIR, NASAL CANNULA REMAINS AT BEDSIDE PRN PATIENT DESATS WITH TRANSFERRING TO BEDSIDE COMMODE. ATE REST SPO2 ABOVE 92% ON ROOM AIR. IV TO RIGHT WRIST. PATIENT WITH HEAD WAITER VISIT THIS EVENING. PATIENT REQUESTED COLORING BOOKS AND PROVIDED WITH MULTIPLE COLORING SHEETS AND CRAYONS. PATIENT ALSO REPORTS SHE LIVES WITH HER FATHER [place] IN [place]. SHE REPORTS SOME DIFFICULTY WITH FINANCES AT HOME AND HAS HAD TROUBLE OBTAINING HER PRESCRIPTION MEDICATIONS. NO OTHER CONCERNS AT THIS TIME.
[2024-10-31] MEDS ORDERED: Insulin Glargine-Yfgn 100 Unit/mL 3 ML SYR SC SCH (21:00)
[2024-10-31] MEDS ORDERED: BusPIRone HCl 10 MG Tab PO SCH (21:00)
[2024-10-31 21:48] VITALS: BP 117/84
[2024-11-01 03:08] VITALS: BP 124/69
--- NOTE | 2024-11-01 04:25 | NUR ---
SHIFT SUMMARY SOLUMEDROL EVERY 6 HRS F0R ASTHMA EXACERBATION CONT. LUNG SOUNDS DIMINISHED THROUGHOUT, NAD ON ROOM AIR & SKIN PINK, WARM, DRY. WHITE PRODUCTIVE COUGH ONGOING, RASPY AT TIMES, NO ACUTE DISTRESS, ON ROOM AIR, CALLS APPROPRIATELY/NEEDS KNOWN, VSS, CBG AT H.S. WAS 285 & RECEIVED 2 UNITS OF LISPRO & 10 UNITS OF LANTUS, RECEIVED H.S. SNACK , VSS. TEARFUL AT TIMES AND RESTED POORLY , URINARY INCONTINENCE X1 WETTING HOME CLOTHES, GOWN PLACED AND HOME CLOTHES BAGGED UP FOR PT , EMOTIONAL SUPPORT OFFERED, WARM BLANKET GIVEN. WANTING MORE SNACKS DURING NIGHT, DIABETES EDUCATION BY DISCUSSION, PT DEMONSTRATED GIVING HER INSULIN INJECTIONS WITH HOSPITAL INSULIN PENS AND DID VERY WELL WITH NURSE GUIDANCE.
[2024-11-01 05:19] LABS: BASOPHILS PERCENT AUTO 0 % (0-2); EOSINOPHILS PERCENT AUTO 0 % (0-6); Hematocrit 39.2 % (33.0-51.0); Hemoglobin 12.6 g/dL (11.5-16.0); IMMATURE GRAN ABSOLUTE AUTO 0.02 K/mm3 (0.00-0.10); IMMATURE GRAN PERCENT AUTO 0 % (0-1); LYMPHOCYTES ABSOLUTE AUTO 0.99 K/mm3 (0.84-5.20); LYMPHOCYTES PERCENT AUTO 18 % (21-46); MONOCYTES ABSOLUTE AUTO 0.08 K/mm3 (0.16-1.47); MONOCYTES PERCENT AUTO 1 % (4-13); Mean Corpuscular HGB 30.7 pg (26.0-34.0); Mean Corpuscular HGB Conc 32.1 g/dL (31.5-36.5); Mean Corpuscular Volume 95 fL (80-100); NEUTROPHILS ABSOLUTE AUTO 4.44 K/mm3 (1.96-9.15); NEUTROPHILS PERCENT AUTO 80 % (41-73); Platelet Count 211 K/mm3 (150-400); RDW Coefficient Variation 12.9 % (11.7-14.2); RDW Standard Deviation 45.1 fL (35.1-46.3); Red Blood Cell Count 4.11 M/mm3 (3.80-5.20); White Blood Cell Count 5.53 K/mm3 (4.00-11.30)
[2024-11-01 05:20] LABS: Mean Platelet Volume 13.1 fL (9.1-12.4)
[2024-11-01 05:36] LABS: Albumin, Blood 3.2 g/dL (3.4-5.0); Albumin/Globulin Ratio 0.9 (0.8-1.8); Bilirubin, Total 0.3 mg/dL (0.1-1.0); Bun/Creatinine Ratio 38.6 (12.0-20.0); Calcium, Blood 8.8 mg/dL (8.5-10.1); Creatinine, Blood 0.41 mg/dL (0.40-1.00); Globulin, Blood 3.6 g/dL (2.2-4.0); Potassium, Blood 4.5 mmol/L (3.5-5.5); Total Protein, Blood 6.8 g/dL (6.4-8.2)
[2024-11-01 07:39] VITALS: BP 130/80
[2024-11-01] MEDS ORDERED: HydroCHLOROthiazide 25 mg Tab PO SCH (09:00)
[2024-11-01] MEDS ORDERED: Citalopram Hydrobromide 20 MG Tab PO SCH (09:00)
[2024-11-01] MEDS ORDERED: Enoxaparin 40 MG/0.4 ML SYR SC SCH (09:00)
[2024-11-01] MEDS ORDERED: Nicotine 14 MG PATCH TOP SCH (09:00)
[2024-11-01] MEDS ORDERED: Insulin Human Lispro 100 Units/ML 3ML Syringe SC ONE ×2 (12:05→14:20)
--- NOTE | 2024-11-01 14:00 | NUR ---
HYPERGLYCEMIC EVENT DR. LAMAS NOTIFIED OF BLOOD SUGAR IN 400s BEFORE LUCNE, SCHEDULED 15 UNITS INSULIN ADMINISTERED PER NOV AND ONE TIME DOSE OF 5 UNITS ADMINISTERED PER NOV. RECHECKED BLOOD SUGAR AND REMAINED IN 400s BUT TRENDED DOWN. RECHECKED AGAIN 2 HOURS POST ADMINISTRATION PER DR. LAMAS AND ANOTHER ONE TIME DOSE OF INSULIN ADMINISTERED PER NOV BY BREAK NURSE. PATIENT COMPLAINING OF DIZZINESS, BUT NO OTHER CONCERNS. WILL CONTINUE TO MONITOR.
[2024-11-01 16:23] VITALS: BP 137/103
[2024-11-01] MEDS ORDERED: MethylPREDNISolone Sod Succ 125 MG Vial IV SCH ×2 (18:00→21:00)
--- NOTE | 2024-11-01 18:40 | NUR ---
SHIFT SUMMARY PATIENT A/OX4, ABLE TO MAKE NEEDS KNOWN. PLEASANT AND COOPERATIVE WTIH CARE. PATIENT REMAINS ON ROOM AIR, SPO2 WNL. INDEPENDENT IN ROOM. PATIENT WITH BLOOD SUGARS IN 400s THIS AFTERNOON, MD AWARE. MOST RECENT BLOOD SUGAR 299. NEW IV PLACED TO LEFT FOREARM DUE TO PREVIOUS BEING PULLED WHILE THE PATIENT HAD A SHOWER. NO OTHER CONCERNS AT THIS TIME.
[2024-11-01] MEDS ORDERED: Insulin Glargine-Yfgn 100 Unit/mL 3 ML SYR SC SCH (21:00)
[2024-11-01 21:11] VITALS: BP 122/82
--- NOTE | 2024-11-02 04:31 | NUR ---
AAOX4. INDEPENDENT IN ROOM. RA. ACHS BG CHECKS. HS BG 405, NOTIFIED HOSPITALIST. INSTRUCTIONS TO GIVE SCHEDULED LANTUS AND SLIDING SCALE IN CHART, NO CHANGES. SLEPT WELL THROUGHOUT THE NIGHT
[2024-11-02 05:00] VITALS: BP 126/93
[2024-11-02 05:50] LABS: BASOPHILS ABSOLUTE AUTO 0.01 K/mm3 (0.00-0.23); BASOPHILS PERCENT AUTO 0 % (0-2); EOSINOPHILS PERCENT AUTO 0 % (0-6); Hematocrit 36.8 % (33.0-51.0); IMMATURE GRAN ABSOLUTE AUTO 0.07 K/mm3 (0.00-0.10); IMMATURE GRAN PERCENT AUTO 1 % (0-1); LYMPHOCYTES ABSOLUTE AUTO 1.37 K/mm3 (0.84-5.20); LYMPHOCYTES PERCENT AUTO 10 % (21-46); MONOCYTES ABSOLUTE AUTO 0.53 K/mm3 (0.16-1.47); MONOCYTES PERCENT AUTO 4 % (4-13); Mean Corpuscular HGB 30.8 pg (26.0-34.0); Mean Corpuscular HGB Conc 32.6 g/dL (31.5-36.5); Mean Corpuscular Volume 94 fL (80-100); NEUTROPHILS ABSOLUTE AUTO 11.44 K/mm3 (1.96-9.15); NEUTROPHILS PERCENT AUTO 85 % (41-73); Platelet Count 190 K/mm3 (150-400); RDW Coefficient Variation 13.2 % (11.7-14.2); RDW Standard Deviation 45.4 fL (35.1-46.3); White Blood Cell Count 13.42 K/mm3 (4.00-11.30)
[2024-11-02 05:53] LABS: Mean Platelet Volume 13.4 fL (9.1-12.4)
[2024-11-02 06:10] LABS: Bun/Creatinine Ratio 59.1 (12.0-20.0); Creatinine, Blood 0.41 mg/dL (0.40-1.00); Potassium, Blood 4.1 mmol/L (3.5-5.5)
[2024-11-02 07:35] VITALS: BP 135/100
[2024-11-02] MEDS ORDERED: Insulin NPH 10 Unit/0.1ML (Single Dose) SC ONE (08:30)
[2024-11-02] MEDS ORDERED: MethylPREDNISolone Sod Succ 40 MG VIAL IV SCH (09:00)
--- NOTE | 2024-11-02 09:00 | NUR ---
PATIENT SMOKING IN ROOM BREAK NURSE NOTIFIED CHARGE AND THIS RN THAT WHEN SHE WENT TO ADMINISTER MEDS TO THE PATIENT THE ROOM SMELLED LIKE CIGARETTE SMOKE. WHEN THIS RN RETURNED FROM BREAK WENT TO PATIENT'S ROOM AND PATIENT ALLOWED A SEARCH. TWO PACKS OF CIGARRETTES, TWO VAPES, AND THREE LIGHTERS WERE FOUND IN SEPARATE BAGS IN HER ROOM AND LOCKED UP IN THE MEDICINE DRAWER. AIR BREAKER OPERATOR AWARE. CHARGE NURSE PLACED REMOTE PATIENT MONITOR IN THE ROOM FOR CONTINUOUS MONITORING.
[2024-11-02] MEDS ORDERED: Insulin NPH 100 Unit / ML 10ML Vial SC ONE (10:15)
[2024-11-02] MEDS ORDERED: Insulin Human Lispro 100 Units/ML 3ML Syringe SC ONE (12:25)
[2024-11-02 15:57] VITALS: BP 148/92
--- NOTE | 2024-11-02 18:36 | NUR ---
SHIFT SUMMARY PATIENT A/OX4, ABLE TO MAKE NEEDS KNOWN. PLEASANT AND COOPERATVIE WITH CARE. NOW HAS REMOTE PATIENT MONITORING IN ROOM SHE WAS FOUND WITH LIGHTERS, VAPES, AND CIGARETTES IN ROOM AFTER BEING SEARCHED. PATIENT WITH HYPERGLYCEMIC EVENT OVER 350 THIS AFTERNOON. MD NOTIFIED AND NEW ORDERS FOR INSULIN RECIEVED. PRIOR TO DINNER PATIENT'S BLOOD SUGAR 75, MD NOTIFIED AND INSULIN ORDERS ADJUSTED AGAIN. PATIENT OCMPLAINING OF RIGHT SIDE PAIN THIS EVENING, PRN ROXICODONE ADMINISTERED PER NOV. NO OTHER CONCERNS AT THIS TIME.
[2024-11-02 19:41] VITALS: BP 127/76
[2024-11-02] MEDS ORDERED: Insulin Glargine-Yfgn 100 Unit/mL 3 ML SYR SC SCH ×2 (21:00)
[2024-11-02] MEDS ORDERED: Insulin Human Lispro 100 Units/ML 3ML Syringe SC SCH (21:00)
--- NOTE | 2024-11-03 04:35 | NUR ---
AAOX4, MUMBLED SPEECH. RA. INDEPENDENT IN ROOM. HS B. PT IS ANXIOUS TO GET HOME BUT FEELS LIKE ONE MORE NIGHT IN HOSPITAL WILL BE GOOD. SHE DOESN'T WANT TO HAVE TO COME BACK AGAIN FOR HER BG LEVELS. NO ACUTE NEEDS OVER NIGHT, SLEPT WELL.
[2024-11-03 05:07] VITALS: BP 133/89
[2024-11-03 05:56] LABS: BASOPHILS ABSOLUTE AUTO 0.02 K/mm3 (0.00-0.23); BASOPHILS PERCENT AUTO 0 % (0-2); EOSINOPHILS PERCENT AUTO 0 % (0-6); Hematocrit 40.2 % (33.0-51.0); Hemoglobin 13.3 g/dL (11.5-16.0); IMMATURE GRAN PERCENT AUTO 1 % (0-1); LYMPHOCYTES ABSOLUTE AUTO 1.37 K/mm3 (0.84-5.20); LYMPHOCYTES PERCENT AUTO 14 % (21-46); MONOCYTES PERCENT AUTO 2 % (4-13); Mean Corpuscular HGB 30.8 pg (26.0-34.0); Mean Corpuscular HGB Conc 33.1 g/dL (31.5-36.5); Mean Corpuscular Volume 93 fL (80-100); NEUTROPHILS ABSOLUTE AUTO 8.14 K/mm3 (1.96-9.15); NEUTROPHILS PERCENT AUTO 83 % (41-73); RDW Coefficient Variation 13.1 % (11.7-14.2); RDW Standard Deviation 44.7 fL (35.1-46.3); Red Blood Cell Count 4.32 M/mm3 (3.80-5.20); White Blood Cell Count 9.83 K/mm3 (4.00-11.30)
[2024-11-03 06:39] LABS: Bun/Creatinine Ratio 70.6 (12.0-20.0); Calcium, Blood 8.6 mg/dL (8.5-10.1); Creatinine, Blood 0.43 mg/dL (0.40-1.00); Potassium, Blood 4.6 mmol/L (3.5-5.5)
[2024-11-03 07:18] VITALS: BP 127/81
[2024-11-03] MEDS ORDERED: PRED20 PO (13:13)
--- NOTE | 2024-11-03 14:45 | NUR ---
DISCHARGE NOTE- PT WAS GIVEN VERBAL AND WRITTEN DISCHARGE INSTRUCTIONS AND ACKNOWLEDGED UNDERSTANDING OF THEM. IVDC'D PRIOR TO PT DISCHARGE. PT ESCORTED OUT TO PT ENTRANCE VIA WC BY THE WAITER/WAITRESS BUFFET. NO S&S OF DISTRESS NOTED AT THE TIME OF DISCHARGE.
== END 2024-11-03 13:44 | disposition home health service (06) | DRG 189 ==
LOC: ER 12:18 → MEDS 14:25
PROVIDERS: Emergency Medicine; ADMIT Family Medicine
DX: J96.01 Acute respiratory failure with hypoxia (principal); J45.901 Unspecified asthma with (acute) exacerbation; I10 Essential (primary) hypertension; F41.9 Anxiety disorder, unspecified; F17.210 Nicotine dependence, cigarettes, uncomplicated; M81.0 Age-related osteoporosis without current pathological fracture; E10.51 Type 1 diabetes mellitus with diabetic peripheral angiopathy without gangrene; E10.65 Type 1 diabetes mellitus with hyperglycemia; M54.9 Dorsalgia, unspecified; G89.29 Other chronic pain; Z88.5 Allergy status to narcotic agent; Z88.8 Allergy status to other drugs, medicaments and biological substances; Z91.038 Other insect allergy status; Z90.49 Acquired absence of other specified parts of digestive tract; Z98.890 Other specified postprocedural states; Z79.899 Other long term (current) drug therapy; Z87.19 Personal history of other diseases of the digestive system
CPT/HCPCS: 0241U; 36415; 71045; 80048; 80053; 82010; 82803; 82947; 85025; 93005; 93010; 94640; 94664; 94760; 96374; 96375; 99285-25; A9270; J1815; J2405; J2919

== ENCOUNTER → 2024-10-31 | Outpatient (CLI) | payer OTHER ==
[~2024-10-31] MED LIST changes: +ALBU2.5V5 INH; +Celexa20 MG PO; +FLUT1DIS2 INH; +HYDCHL25 PO; +Nicoderm Cq1 EAC1 TOP; +PROAIR RESPICL90 MCG INH; +XOPENEX HFA15 GM INH
[2024-10-31 10:33] LABS: BASOPHILS ABSOLUTE AUTO 0.03 K/mm3 (0.00-0.23); BASOPHILS PERCENT AUTO 0 % (0-2); EOSINOPHILS ABSOLUTE AUTO 0.12 K/mm3 (0.00-0.68); EOSINOPHILS PERCENT AUTO 2 % (0-6); Hematocrit 42.7 % (33.0-51.0); Hemoglobin 13.9 g/dL (11.5-16.0); IMMATURE GRAN ABSOLUTE AUTO 0.01 K/mm3 (0.00-0.10); IMMATURE GRAN PERCENT AUTO 0 % (0-1); LYMPHOCYTES ABSOLUTE AUTO 2.95 K/mm3 (0.84-5.20); LYMPHOCYTES PERCENT AUTO 40 % (21-46); MONOCYTES ABSOLUTE AUTO 0.88 K/mm3 (0.16-1.47); MONOCYTES PERCENT AUTO 12 % (4-13); Mean Corpuscular HGB 30.8 pg (26.0-34.0); Mean Corpuscular HGB Conc 32.6 g/dL (31.5-36.5); Mean Corpuscular Volume 95 fL (80-100); Mean Platelet Volume 12.9 fL (9.1-12.4); NEUTROPHILS ABSOLUTE AUTO 3.33 K/mm3 (1.96-9.15); NEUTROPHILS PERCENT AUTO 46 % (41-73); Platelet Count 215 K/mm3 (150-400); RDW Coefficient Variation 13.2 % (11.7-14.2); RDW Standard Deviation 45.7 fL (35.1-46.3); Red Blood Cell Count 4.51 M/mm3 (3.80-5.20); White Blood Cell Count 7.32 K/mm3 (4.00-11.30)
[2024-10-31 10:45] LABS: Albumin, Blood 3.5 g/dL (3.4-5.0); Albumin/Globulin Ratio 0.9 (0.8-1.8); Bilirubin, Total 0.3 mg/dL (0.1-1.0); Bun/Creatinine Ratio 22.4 (12.0-20.0); Calcium, Blood 9.2 mg/dL (8.5-10.1); Creatinine, Blood 0.58 mg/dL (0.40-1.00); Globulin, Blood 3.9 g/dL (2.2-4.0); Potassium, Blood 4.2 mmol/L (3.5-5.5); Total Protein, Blood 7.4 g/dL (6.4-8.2)
== END ==
LOC: LAB SHORT 10:29 → LAB 10:29
DX: R73.9 Hyperglycemia, unspecified (principal)
CPT/HCPCS: 80053; 85025

== ENCOUNTER 2024-11-13 20:47 | Inpatient (IN) | payer OTHER ==
[~2024-11-13] VITALS: Ht 162.6 cm; Wt 60.0 kg
[~2024-11-13 20:47] MED LIST changes: +ALBU2.5V5 INH; +Celexa20 MG PO; +FLUT1DIS2 INH; +HYDCHL25 PO; +Nicoderm Cq1 EAC1 TOP; +PROAIR RESPICL90 MCG INH; +XOPENEX HFA15 GM INH
[2024-11-14] VITALS (59 sets, daily range): BP systolic 82–176; BP diastolic 50–128
[2024-11-14] MEDS ORDERED: Midazolam HCL 50 MG in NS 40 ML IV PRN (00:55)
[2024-11-14 01:05] LABS: PCO2 Arterial 52.4 mmHg (35-45); PO2 Arterial 55.9 mmHg (80-100); pH Blood Arterial 7.34 (7.35-7.45)
[2024-11-14] MEDS ORDERED: Albuterol 2.5 MG/3 ML VIAL INH PRN (01:15)
[2024-11-14] MEDS ORDERED: Ipratropium/Albuterol SulF 2.5-0.5MG/3 ML Amp INH SCH ×2 (01:15→11:40)
--- NOTE | 2024-11-14 01:15 | NUR ---
PT ARRIVES TO ROOM ICU 11 DIRECT ADMIT FROM [facility] IN [place], [place]. PT TO ROOM AT 0040. EMS GIVES REPORT OF PT'S PROGRESS VIA DURING TRANSFER. HAVE RECEIVED REPORT FROM RN AT [facility]. PT INTUBATED. REMOVED FROM KETAMINE DRIP, AND LEVOPHED WHEN SLIDE TRANSFERRED TO BED FROM EMS [facility]. PT WAS ABLE TO AWAKEN ENOUGH TO SQUEEZE FINGERS, AND WIGGLE TOES UPON DEMAND. DR MORTON TO ROOM TO ASSESS PT. ORDERS HAVE BEEN RECEIVED. PT PLACED ON VERSED DRIP AT 2 MG/HOUR, AND LEVOPHED RESTARTED AT 1 MCG'S/MIN. WILL REVIEW CHART AND PLAN OF CARE FOR THIS PT.
[2024-11-14 01:30] LABS: BASOPHILS ABSOLUTE AUTO 0.01 K/mm3 (0.00-0.23); BASOPHILS PERCENT AUTO 0 % (0-2); EOSINOPHILS PERCENT AUTO 0 % (0-6); Hematocrit 35.5 % (33.0-51.0); Hemoglobin 11.4 g/dL (11.5-16.0); IMMATURE GRAN ABSOLUTE AUTO 0.07 K/mm3 (0.00-0.10); IMMATURE GRAN PERCENT AUTO 1 % (0-1); LYMPHOCYTES ABSOLUTE AUTO 0.42 K/mm3 (0.84-5.20); LYMPHOCYTES PERCENT AUTO 3 % (21-46); MONOCYTES ABSOLUTE AUTO 0.18 K/mm3 (0.16-1.47); MONOCYTES PERCENT AUTO 1 % (4-13); Mean Corpuscular HGB 31.7 pg (26.0-34.0); Mean Corpuscular HGB Conc 32.1 g/dL (31.5-36.5); Mean Corpuscular Volume 99 fL (80-100); NEUTROPHILS ABSOLUTE AUTO 11.77 K/mm3 (1.96-9.15); NEUTROPHILS PERCENT AUTO 95 % (41-73); Platelet Count 115 K/mm3 (150-400); RDW Coefficient Variation 13.4 % (11.7-14.2); RDW Standard Deviation 47.5 fL (35.1-46.3); White Blood Cell Count 12.45 K/mm3 (4.00-11.30)
[2024-11-14] MEDS ORDERED: NS 1,000 ML IV SCH (01:30)
[2024-11-14 01:49] LABS: Albumin, Blood 2.7 g/dL (3.4-5.0); Albumin/Globulin Ratio 0.9 (0.8-1.8); Bilirubin, Total 0.2 mg/dL (0.1-1.0); Calcium, Blood 7.3 mg/dL (8.5-10.1); Creatinine, Blood 0.52 mg/dL (0.40-1.00); Globulin, Blood 3.1 g/dL (2.2-4.0); Potassium, Blood 3.4 mmol/L (3.5-5.5); Total Protein, Blood 5.8 g/dL (6.4-8.2)
[2024-11-14] MEDS ORDERED: Potassium Chloride 20 MEQ in NS 90 ML IV ONE (03:30)
[2024-11-14] MEDS ORDERED: Insulin Human Lispro 100 Units/ML 3ML Syringe SC SCH (04:00)
[2024-11-14] MEDS ORDERED: Cetylpyridinium Chloride 1 EA MISC MT SCH (04:05)
[2024-11-14] MEDS ORDERED: FLU VACC TS2024-25(6MOS UP)/PF 45 MCG/0.5 ML SYRINGE IM ONE (04:05)
[2024-11-14] MEDS ORDERED: Ondansetron HCl 2 MG / ML 2ML Vial IV PRN (04:05)
[2024-11-14 06:15] LABS: Albumin, Blood 2.7 g/dL (3.4-5.0); Bilirubin, Total 0.4 mg/dL (0.1-1.0); Bun/Creatinine Ratio 36.6 (12.0-20.0); Calcium, Blood 7.8 mg/dL (8.5-10.1); Creatinine, Blood 0.46 mg/dL (0.40-1.00); Globulin, Blood 2.8 g/dL (2.2-4.0); Potassium, Blood 3.7 mmol/L (3.5-5.5); Total Protein, Blood 5.5 g/dL (6.4-8.2)
[2024-11-14 06:45] LABS: BASOPHILS ABSOLUTE AUTO 0.01 K/mm3 (0.00-0.23); BASOPHILS PERCENT AUTO 0 % (0-2); EOSINOPHILS PERCENT AUTO 0 % (0-6); Hematocrit 34.2 % (33.0-51.0); Hemoglobin 10.9 g/dL (11.5-16.0); IMMATURE GRAN ABSOLUTE AUTO 0.02 K/mm3 (0.00-0.10); IMMATURE GRAN PERCENT AUTO 0 % (0-1); LYMPHOCYTES ABSOLUTE AUTO 0.82 K/mm3 (0.84-5.20); LYMPHOCYTES PERCENT AUTO 12 % (21-46); MONOCYTES ABSOLUTE AUTO 0.32 K/mm3 (0.16-1.47); MONOCYTES PERCENT AUTO 5 % (4-13); Mean Corpuscular HGB 30.8 pg (26.0-34.0); Mean Corpuscular HGB Conc 31.9 g/dL (31.5-36.5); Mean Corpuscular Volume 97 fL (80-100); NEUTROPHILS ABSOLUTE AUTO 5.65 K/mm3 (1.96-9.15); NEUTROPHILS PERCENT AUTO 83 % (41-73); Platelet Count 110 K/mm3 (150-400); RDW Coefficient Variation 13.5 % (11.7-14.2); RDW Standard Deviation 47.6 fL (35.1-46.3); Red Blood Cell Count 3.54 M/mm3 (3.80-5.20); White Blood Cell Count 6.82 K/mm3 (4.00-11.30)
[2024-11-14 06:47] LABS: Mean Platelet Volume 13.5 fL (9.1-12.4)
--- NOTE | 2024-11-14 06:48 | NUR ---
HAVE REQUIRED TO INCREASE VERSED DRIP UP TO 4 MG/HOUR SECONDARY TO TOLERANCE ISSUES WITH VENT. PT AWAKENS WITH STIMULI, AND REACHES AGGRESSIVELY UP TOWARDS HER ETT. HAVE BEEN ABLE TO TITRATE OFF LEVOPHED DRIP. BLOOD PRESSURES REMAIN WITH MAP > 65. SPUTUM SAMPLE WAS OBTAIN PER ETT AND SENT FOR LAB FOR CULTURE. WILL CONTINUE TO MONITOR PT, AND WILL REPORT OFF TO ONCOMING RN.
[2024-11-14] MEDS ORDERED: Insulin Glargine-Yfgn 100 Unit/mL 3 ML SYR SC SCH (07:00)
[2024-11-14] MEDS ORDERED: MethylPREDNISolone Sod Succ 125 MG Vial IV SCH (08:00)
--- NOTE | 2024-11-14 08:07 | NUR ---
AM NOTE... ASSUMED CARE OF PT AT 0700, PT IS INTUBATED AND SEDATED ON VERSED GTT AT 4MG/HR, PT'S RASS IS 0 TO +3 WHEN CARE IS PROVIDED. VENT SETTINGS ARE: AC/VC: 18/400/5/30% WITH O2 SATS>95% L/S CLEAR T/O DURING THIS ASSESSMENT. PT IS IN SINUS TACH 100'S TO 130'S WITH AGITATION. BP IS STABLE WITH MAPS>65 WITH LEVOPHED ON STANDBY. BT PRESENT AND HYPOACTIVE, ABD SOFT TO PALPATION. OG TUBE IS SET TO LIS WITH DARK BROWN GASTRIC CONTENTS NOTED IN THE TUBING. MCCOLLUM IS PATENT AND DRAINING TO GRAVITY.
[2024-11-14] MEDS ORDERED: Pantoprazole Sodium 40 MG Injection IV SCH (09:00)
[2024-11-14] MEDS ORDERED: Enoxaparin 40 MG/0.4 ML SYR SC SCH ×2 (09:00)
--- NOTE | 2024-11-14 11:09 | NUR ---
PT UPDATE... VERSED GTT STOPPED AT 0950 AND PT CHANGED FROM AC/VC TO SP 10/5 AND 30%. PT TOLERATING THE SBT WELL.
[2024-11-14] MEDS ORDERED: propofoL 100 ML IV SCH (11:50)
[2024-11-14] MEDS ORDERED: Hydrogen Peroxide 1.5 % Solution MT SCH (12:00)
--- NOTE | 2024-11-14 14:20 | NUR ---
PT EXTUBATED... PT WAS EXTUBATED AT 1359 TO 2L NC WITH O2 SATS>95%. PT'S VS STABLE. MCCOLLUM WAS REMOVED AT 1415.
[2024-11-14] MEDS ORDERED: EPINEPHrine HCL 11.25 MG/0.5 ML VIAL INH PRN (16:05)
[2024-11-14] MEDS ORDERED: NS 500 ML IV ONE (16:05)
[2024-11-14] MEDS ORDERED: Metoprolol Tartrate 25 MG Tab PO SCH (18:10)
--- NOTE | 2024-11-14 18:22 | NUR ---
SHIFT SUMMARY.... APROX 1 HR AFTER THE PT WAS EXTUBATED THE PT HAD NOTICEABLE WHEEZES T/O AND UPPER AIRWAY STRIDOR WITH ALMOST ABSENT BREATH SOUNDS, PT'S O2 SATS WERE DOWN TO 82% ON RA, 3L NC WAS PLACED ON THE PT WITH GOOD RESULTS. THE PT CONTINUED TO HAVE EPISODES OF DESATURATIONS WITH INCREASED WORK OF BREATHING AND O2 SATS DOWN TO THE 70'S, PT WAS GIVEN 2 BREATHING TREATMENTS WHICH HELPED FOR APROX 30MINS. THE PT'S BREATHING/O2 SATS ARE STABLE WITH NO ACTIVITY. PT HAD GOTTEN UP TO USE THE BSC WITHOUT HELP, O2 SATS DROPPED DOWN TO THE 50'S WITH HR IN THE 140'S, PT WAS HELPED BACK TO BED AND O2 WAS INCREASED FOR A SHORT TIME TO 6L NC THEN TITRATED BACK DOWN ONCE SHE RECOVERED. AT REST THE PT'S HR IS IN THE 120'S-130'S SINUS TACH. BP IS HYPERTENSIVE WITH SBPs IN THE 150'S-170'S. PROVIDER WAS NOTIFIED NEW ORDERS FOR PO LOPRESSOR WERE GIVEN. PT'S MCCOLLUM WAS D/C'D WNL, PT HAS VOIDED 2 TIMES SINCE MCCOLLUM REMOVAL.
--- NOTE | 2024-11-14 22:09 | NUR ---
ASSUMPTION OF CARE/ASSESSMENT: ASSUMED CARE OF PT AT 1900; REPORT RECEIVED FROM WOODROW GOLDMAN. PT IN BED, A&O X 4, PLEASANT AND COOPERATIVE WITH CARE. CURRENTLY PT ON NC @ 2LPM, SPO2 98<, C/O SOB, PRN BREATHING TX WITH GOOD EFFECT. PT HAS AUDIBLE STIDOR, LUNG SOUNDS ARE DIFFUSELY DIM; SHALLOW BREATHS NOTED. PT ST ON MONITOR WITH HR 110'S, BP STABLE AND DENIES CHEST PAIN AT THIS TIME. + BT, ABD SOFT/NON-TENDER AND TOLERATING PO INTAKE; ME GOSMAN PT OKAY TO HAVE LIQUIDS AT THIS TIME. PT USING BSC FOR ELIMINATION; INDEPENDENT WITH TRANSFERS/REPOSITIONING. SBA FOR CORDS. PIV X 2 SL. BED LOWERED, CALL LIGHT IN REACH.
[2024-11-15] VITALS (11 sets, daily range): BP systolic 113–155; BP diastolic 73–108
[2024-11-15 04:00] LABS: BASOPHILS ABSOLUTE AUTO 0.03 K/mm3 (0.00-0.23); BASOPHILS PERCENT AUTO 0 % (0-2); EOSINOPHILS PERCENT AUTO 0 % (0-6); Hematocrit 36.4 % (33.0-51.0); Hemoglobin 11.6 g/dL (11.5-16.0); IMMATURE GRAN ABSOLUTE AUTO 0.15 K/mm3 (0.00-0.10); IMMATURE GRAN PERCENT AUTO 1 % (0-1); LYMPHOCYTES ABSOLUTE AUTO 1.14 K/mm3 (0.84-5.20); LYMPHOCYTES PERCENT AUTO 5 % (21-46); MONOCYTES ABSOLUTE AUTO 0.59 K/mm3 (0.16-1.47); MONOCYTES PERCENT AUTO 2 % (4-13); Mean Corpuscular HGB Conc 31.9 g/dL (31.5-36.5); Mean Corpuscular Volume 97 fL (80-100); NEUTROPHILS ABSOLUTE AUTO 23.31 K/mm3 (1.96-9.15); NEUTROPHILS PERCENT AUTO 93 % (41-73); Platelet Count 119 K/mm3 (150-400); RDW Coefficient Variation 14.5 % (11.7-14.2); RDW Standard Deviation 50.4 fL (35.1-46.3); Red Blood Cell Count 3.74 M/mm3 (3.80-5.20); White Blood Cell Count 25.22 K/mm3 (4.00-11.30)
[2024-11-15 04:14] LABS: Mean Platelet Volume 13.6 fL (9.1-12.4)
[2024-11-15 04:29] LABS: Magnesium, Blood 2.1 mg/dL (1.6-2.4)
[2024-11-15 04:30] LABS: Bun/Creatinine Ratio 26.4 (12.0-20.0); Calcium, Blood 8.4 mg/dL (8.5-10.1); Creatinine, Blood 0.42 mg/dL (0.40-1.00); Phosphorus, Blood 3.1 mg/dL (2.5-4.9); Potassium, Blood 4.2 mmol/L (3.5-5.5)
--- NOTE | 2024-11-15 06:11 | NUR ---
SHIFT SUMMARY: NO ACUTE CHANGES OVERNIGHT; VSS THROUGHOUT THE SHIFT. PT UP EVERY 30-60 MINS TO VOID; DENIES DYSURIA. REMAINS INDEPENDENT WITH SBA FOR CORD MANAGEMENT. CBG'S 200'S, RECIEVING COVERAGE. RWR PIV SALINE LOCKED AT THIS TIME. PT USES CALL LIGHT APPROPRIATELY. BED LOWERED. WILL REPORT OFF TO ONCOMING RN.
[2024-11-15] MEDS ORDERED: Ipratropium/Albuterol SulF 2.5-0.5MG/3 ML Amp INH SCH (10:00)
--- NOTE | 2024-11-15 11:20 | NUR ---
AM NOTE... ASSUMED CARE OF PT AT 0700, PT IS A&Ox4. PT'S VS STABLE WITH HR IN THE 80'S-90'S SR. BP IS STABLE WITH SBPs IN THE 120'S-140'S. NO SWELLING OR EDEMA NOTED ON THIS ASSESSMENT. PT IS ON 2-3L NC WITH O2 SATS>95% L/S TIGHT WHEEZES AND DIM T/O. PT'S WORK OF BREATHING INCREASED WITH ACTIVITY BUT O2 SATS ARE STABLE. BT ARE NORMOACTIVE. PT ATE 100% OF BREAKFAST. PT'S CBGs WERE IN THE 160'S. PROVIDER ASSESSED THE PT THIS AM AND SHE WAS CHANGED TO MEDICAL STATUS NO TELE.
[2024-11-15] MEDS ORDERED: Ibuprofen 400 MG Tab PO PRN (11:35)
--- NOTE | 2024-11-15 12:16 | NUR ---
PT TRANSFER REPORT GIVEN TO SURGICAL FLOOR NURSE. PATIENT TRANSFERRED TO 227 VIA WHEELCHAIR BY ORNAMENTAL PLASTERER HELPER.PT VITALS STABLE,WNL FOR PATIENT.PTS PERSONAL ITEMS SENT W/PT.FAMILY NOTIFIED OF PTS TRANSFER VIA PHONE.
--- NOTE | 2024-11-15 12:24 | NUR ---
TRANSFER TO UNIT AFTER RECEIVING REPORT FROM BIT GATHERER, PATIENT TRANSFERRED TO UNIT VIA AT APPROX 1215. PATIENT ALERT AND ORIENTED X4. ABLE TO STAND AND TRANSFER FROM TO BED INDEPENDENTLY. VSS. SBP 110s. MAP >65. DENIES CHEST PAIN, PRESSURE. IS NO LONGER ON TELE ORDERED. ON 3L VIA NC. DENIES SOB AT REST. EXP WHEEZE NOTED UPON AUSCULTATION. IGNITION RISK PRESENT - DERMATOLOGY NURSE PRACTITIONER AND PACK OF CIGARETTES IN PURSE. EDUCATION PROVIDED - PATIENT STATES UNDERSTANDING. PURSE IN LOCKED DRAWER OUTSIDE OF ROOM. CALL LIGHT IN REACH.
--- NOTE | 2024-11-15 12:28 | NUR ---
REVIEWED ABHILASH RNs ASSESSMENT AND DOCUMENTATION, THIS RN AGREES WITH DOCUMENTATION.
--- NOTE | 2024-11-15 16:01 | NUR ---
ELEVATED CBG 1600 CBG 489. MD BARNEY CONTACTED - RECEIVED ORDER TO ADMINISTER AN ADDITIONAL 5U HUMALOG WITH THE ORDERED 5U PER SLIDING SCALE (FOR A TOTAL OF 10U HUMALOG). TO REVIEW CHART TO ADJUST SLIDING SCALE AND LONG ACTING INSULIN.
[2024-11-15] MEDS ORDERED: Insulin Human Lispro 100 Units/ML 3ML Syringe SC ONE (16:05)
[2024-11-15] MEDS ORDERED: Insulin Human Lispro 100 Units/ML 3ML Syringe SC SCH (16:30)
--- NOTE | 2024-11-15 17:05 | NUR ---
SHIFT SUMMARY NO ACUTE CHANGES SINCE ARRIVAL TO UNIT. PATIENT REMAINS ALERT AND ORIENTED X4. SBA WITH MOBILITY - AMBULATED IN HALLWAY. VSS. SBP 110s-120s. MAP >65. DENIES CHEST PAIN, PRESSURE. ON 2L VIA NC, SATs >90%. SOB WITH ACTIVITY - EASES AT REST. HIGH SLIDING SCALE NOW IN PLACE AND LONG ACTING SCHEDULED BID BY MD. ORDERED 10U HUMALOG ADMINISTERED PER EMAR FOR ELEVATED CBG. Q4 CBG CHECKS IN PLACE. INDEPENDENT WITH ADLs - SHOWER COMPLETED TODAY. CALL LIGHT IN REACH.
--- NOTE | 2024-11-15 20:30 | NUR ---
2030- PROVIDER CALLED AND INFORMED OF PT'S CBG. DR SOTO ORDERED TO USE SCHEDULED INSULIN DOSING. PROVIDER MADE AWARE PT IS Q 4 CBG CHECKS.
[2024-11-15] MEDS ORDERED: Insulin Glargine-Yfgn 100 Unit/mL 3 ML SYR SC SCH (21:00)
[2024-11-15] MEDS ORDERED: MethylPREDNISolone Sod Succ 125 MG Vial IV SCH (21:00)
[2024-11-16 03:56] VITALS: BP 127/82
--- NOTE | 2024-11-16 05:45 | NUR ---
NOC SHIFT SUMMARY- PT HAS BEEN ON RA THIS SHIFT. PT DENIES SOB. SPO2 >90%. PT CBG WAS >[address] SOTO WAS CALLED. PROVIDER ORDERED TO GIVE SUGGESTED DOSE OF HUMALOG AND THE SCHEDULED LONG ACTING DOSE. PT CBG WAS CHECKED AGAIN AND CBG WAS NOTED TO BE 131. PT ENCOURAGED TO HAVE A SNACK. 0400 CBG WAS 216. PT DRINKING WATER AND VOIDING. PT DENIES ANY ISSUES. CALL LIGHT IN REACH.
[2024-11-16 07:50] VITALS: BP 150/92
[2024-11-16] MEDS ORDERED: METO25ER PO (09:51)
[2024-11-16] MEDS ORDERED: AMOCLA500 PO (09:51)
[2024-11-16] MEDS ORDERED: Citalopram Hydrobromide 20 MG Tab PO SCH (09:54)
[2024-11-16] MEDS ORDERED: Mometasone/Formoterol MDI 200/5 mcg 13 GM INH SCH (09:55)
[2024-11-16] MEDS ORDERED: BusPIRone HCl 10 MG Tab PO SCH (10:00)
--- NOTE | 2024-11-16 10:47 | NUR ---
DISCHARGE PT DISCHARGED FROM UNIT AT APROX 1015. PT GIVEN WRITTEN AND VERBAL DC INSTUCTRUCTIONS AND VERBALIZED UNDERSTANDING OF THESE INSTRUCTIONS. IV REMOVED, TOLERATED WELL. WC TO [facility] FOR TRANSPORT. THIS RN WITH PT WAITING. AT APROX 1040 THIS RN CALLED CRYPTOGRAPHIC VULNERABILITY ANALYST TO REQUEST UPDATE ON DELAY. TRANSPORT COMPANY HAD DISPATCHED TO HOSPITAL IN [place], WILL SEND NEW TRANSPORT AT THIS TIME. PT UPDATED, FEELS CONFIDENT IN WAITING FOR RIDE WITHOUT THIS RN.
--- NOTE | 2024-11-16 10:58 | NUR ---
DISCHARGE NOTE THIS RN ASSUMED CARE AT APPROX 0715. PATIENT ALERT AND ORIENTED X4. INDEPENDENT IN ROOM. COMMUNICATES NEEDS EFFECTIVELY. VSS. SBP 150s. MAP >65. DENIES CHEST PAIN, PRESSURE. ON ROOM AIR, SATs >90%. MILD SOB WITH ACTIVITY. MILD EXP WHEEZE - RECEIVED BREATHING TREATMENT THIS MORNING. TOLERATING PO INTAKE. MANAGING CBG PER EMAR AND SLIDING SCALE. VOIDING. SHOWER COMPLETED THIS MORNING. DC HOME ORDERED - CASE MANAGEMENT ARRANGED FOR [facility] TRANSPORT TO [place]. WAGON WINDER PROVIDED DC EDUCATION. IV REMOVED. PERSONAL BELONGINGS INCLUDING IGNITION SOURCES RETURNED TO PATIENT. PATIENT DC AT APPROX 1015.
--- NOTE | 2024-11-16 11:16 | NUR ---
NEW RX'S CALLED TO [facility].
[2024-11-16] MEDS ORDERED: Montelukast Sodium 10 MG Tab PO SCH (21:00)
[2024-11-16] MEDS ORDERED: TraZODone HCl 50 MG Tab PO SCH (21:00)
== END 2024-11-16 10:15 | disposition home or self-care (01) | DRG 208 ==
LOC: ICUE 20:47 → SURS 11-15 12:13
PROVIDERS: Internal Medicine Critical Care Medicine; ADMIT Internal Medicine
PROC: 5A1935Z Respiratory Ventilation, Less than 24 Consecutive Hours (ICD-10-PCS; principal; 2024-11-14)
PROC: 3E033XZ Introduction of Vasopressor into Peripheral Vein, Percutaneous Approach (ICD-10-PCS; 2024-11-14)
DX: J96.01 Acute respiratory failure with hypoxia (principal); J45.901 Unspecified asthma with (acute) exacerbation; E87.20 Acidosis, unspecified; D82.1 Di George's syndrome; G89.29 Other chronic pain; M54.9 Dorsalgia, unspecified; J44.9 Chronic obstructive pulmonary disease, unspecified; M81.0 Age-related osteoporosis without current pathological fracture; E10.51 Type 1 diabetes mellitus with diabetic peripheral angiopathy without gangrene; F17.200 Nicotine dependence, unspecified, uncomplicated; F41.9 Anxiety disorder, unspecified; I10 Essential (primary) hypertension; Z79.4 Long term (current) use of insulin; Z79.899 Other long term (current) drug therapy; Z90.49 Acquired absence of other specified parts of digestive tract; Z98.890 Other specified postprocedural states
CPT/HCPCS: 36415; 36600; 51702; 71045; 80048; 80053; 82803; 82947; 83605; 83735; 83880; 84100; 85025; 87070; 87147; 87205; 94002; 94640; 94664; 94760; A9270; J1650; J1815; J2250; J2470; J2919; J3480; J7030; J7040; J7060

== ENCOUNTER 2025-02-28 07:58 | Emergency (ER) | payer OTHER ==
[~2025-02-28] VITALS: Ht 160 cm; Wt 68.0 kg
[~2025-02-28 07:58] MED LIST changes: +AMOCLA500 PO; +METO25ER PO
[2025-02-28] MEDS ORDERED: Ondansetron 4 MG SoluTab SL ONE (10:40)
[2025-02-28] MEDS ORDERED: Benzonatate 100 MG Cap PO ONE (10:40)
[2025-02-28] MEDS ORDERED: BENZ100A PO (11:41)
[2025-02-28] MEDS ORDERED: NS 1,000 ML IV SCH (11:55)
[2025-02-28 12:51] LABS: BASOPHILS ABSOLUTE AUTO 0.05 K/mm3 (0.00-0.23); BASOPHILS PERCENT AUTO 0 % (0-2); EOSINOPHILS PERCENT AUTO 0 % (0-6); Hematocrit 42.1 % (33.0-51.0); Hemoglobin 13.7 g/dL (11.5-16.0); IMMATURE GRAN ABSOLUTE AUTO 0.04 K/mm3 (0.00-0.10); IMMATURE GRAN PERCENT AUTO 0 % (0-1); LYMPHOCYTES ABSOLUTE AUTO 0.93 K/mm3 (0.84-5.20); LYMPHOCYTES PERCENT AUTO 8 % (21-46); MONOCYTES ABSOLUTE AUTO 0.87 K/mm3 (0.16-1.47); MONOCYTES PERCENT AUTO 7 % (4-13); Mean Corpuscular HGB 30.4 pg (26.0-34.0); Mean Corpuscular HGB Conc 32.5 g/dL (31.5-36.5); Mean Corpuscular Volume 93 fL (80-100); NEUTROPHILS ABSOLUTE AUTO 10.16 K/mm3 (1.96-9.15); NEUTROPHILS PERCENT AUTO 84 % (41-73); Platelet Count 128 K/mm3 (150-400); RDW Coefficient Variation 15.2 % (11.7-14.2); RDW Standard Deviation 52.4 fL (35.1-46.3); Red Blood Cell Count 4.51 M/mm3 (3.80-5.20); White Blood Cell Count 12.05 K/mm3 (4.00-11.30)
[2025-02-28 13:09] LABS: Bilirubin, Total 0.3 mg/dL (0.1-1.0); Bun/Creatinine Ratio 22.7 (12.0-20.0); Calcium, Blood 8.7 mg/dL (8.5-10.1); Creatinine, Blood 0.53 mg/dL (0.40-1.00); Globulin, Blood 4.2 g/dL (2.2-4.0); Potassium, Blood 4.4 mmol/L (3.5-5.5); Total Protein, Blood 8.2 g/dL (6.4-8.2)
[2025-02-28 13:41] VITALS: BP 128/74
[2025-02-28] MEDS ORDERED: Promethazine HCl 25 MG Tab PO ONE (13:45)
[2025-02-28] MEDS ORDERED: PROMETHAZINE12.5 M1 PO (14:48)
== END 2025-02-28 14:57 | disposition home or self-care (01) ==
LOC: ER 07:58
PROVIDERS: Physician Assistant
DX: J06.9 Acute upper respiratory infection, unspecified (principal); J44.89 Other specified chronic obstructive pulmonary disease; E10.10 Type 1 diabetes mellitus with ketoacidosis without coma; E10.51 Type 1 diabetes mellitus with diabetic peripheral angiopathy without gangrene; F17.210 Nicotine dependence, cigarettes, uncomplicated; Z79.4 Long term (current) use of insulin; Z79.52 Long term (current) use of systemic steroids; Z79.51 Long term (current) use of inhaled steroids; Z79.899 Other long term (current) drug therapy; Z91.030 Bee allergy status; Z88.5 Allergy status to narcotic agent; Z88.8 Allergy status to other drugs, medicaments and biological substances
CPT/HCPCS: 36415; 71046; 80053; 85025; 93005; 93010; 99284-25; A9270

== ENCOUNTER 2025-07-13 10:35 | Emergency (ER) | payer OTHER ==
[~2025-07-13] VITALS: Ht 162.6 cm; Wt 81.7 kg
[~2025-07-13 10:35] MED LIST changes: +PROMETHAZINE12.5 M1 PO
[2025-07-13 11:01] LABS: Source, Urine Clean Catch
[2025-07-13 11:04] LABS: Bilirubin, Urine Neg (Neg); Color, Urine Yellow (P-Yellow); Glucose Qualitative, Urine 4+ (Neg); Ketones, Urine Neg (Neg); Leukocyte Esterase, Urine Neg (Neg); Protein, Urine Neg (Neg); Specific Gravity, Urine 1.015 (1.003-1.022); Urobilinogen, Urine NORM (Normal)
[2025-07-13 11:13] LABS: BASOPHILS ABSOLUTE AUTO 0.04 K/mm3 (0.00-0.23); BASOPHILS PERCENT AUTO 1 % (0-2); EOSINOPHILS ABSOLUTE AUTO 0.16 K/mm3 (0.00-0.68); EOSINOPHILS PERCENT AUTO 2 % (0-6); Hematocrit 45.5 % (33.0-51.0); Hemoglobin 15.0 g/dL (11.5-16.0); IMMATURE GRAN ABSOLUTE AUTO 0.01 K/mm3 (0.00-0.10); IMMATURE GRAN PERCENT AUTO 0 % (0-1); LYMPHOCYTES ABSOLUTE AUTO 3.12 K/mm3 (0.84-5.20); LYMPHOCYTES PERCENT AUTO 44 % (21-46); MONOCYTES ABSOLUTE AUTO 0.68 K/mm3 (0.16-1.47); MONOCYTES PERCENT AUTO 10 % (4-13); Mean Corpuscular HGB Conc 33.0 g/dL (31.5-36.5); Mean Corpuscular Volume 95 fL (80-100); NEUTROPHILS ABSOLUTE AUTO 3.15 K/mm3 (1.96-9.15); NEUTROPHILS PERCENT AUTO 44 % (41-73); NRBC ABSOLUTE 0.00 K/mm3 (0.00-0.02); NRBC Auto 0.0 /100 WBC (0.0-0.2); Platelet Count 154 K/mm3 (150-400); RDW Coefficient Variation 12.4 % (11.7-14.2); RDW Standard Deviation 43.6 fL (35.1-46.3)
[2025-07-13] MEDS ORDERED: NS 1,000 ML IV SCH (11:20)
[2025-07-13 11:40] LABS: Alanine Aminotransfer (ALT/SGP 49.0 U/L (12-78); Albumin, Blood 3.6 g/dL (3.4-5.0); Albumin/Globulin Ratio 0.8 (0.8-1.8); Anion Gap 8.0 mmol/L (3-11); Aspartate Aminotrans (AST/SGOT 33.0 U/L (12-37); Bilirubin, Total 0.2 mg/dL (0.1-1.0); Blood Urea Nitrogen 17.0 mg/dL (8-24); CO2, Blood 26.0 mmol/L (21-32); Calcium, Blood 8.9 mg/dL (8.5-10.1); Chloride, Blood 103.0 mmol/L (98-108); Creatinine, Blood 0.49 mg/dL (0.40-1.00); Globulin, Blood 4.3 g/dL (2.2-4.0); Glucose, Blood 289.0 mg/dL (70-99); Potassium, Blood 4.4 mmol/L (3.5-5.5); Sodium, Blood 133.0 mmol/L (136-145); Total Protein, Blood 7.9 g/dL (6.4-8.2)
[2025-07-13 12:12] LABS: Influenza A, PCR NEGATIVE (NEGATIVE); Influenza B, PCR NEGATIVE (NEGATIVE); Resp Syncytial Virus, PCR NEGATIVE (NEGATIVE); SARS-Cov-2 (COVID-19) PCR, MMC NEGATIVE (NEGATIVE)
[2025-07-13] MEDS ORDERED: Haloperidol Lactate Inj. 5 MG/ML Injection IV ONE (12:50)
[2025-07-13] MEDS ORDERED: Insulin Regular 100 Unit/ML 1ML Dose SC ONE (12:55)
[2025-07-13] MEDS ORDERED: ONDA4ODT MM (13:25)
[2025-07-13] MEDS ORDERED: Pantoprazole Sodium 40 MG Injection IV ONE (13:30)
[2025-07-13 16:09] VITALS: BP 122/81
== END 2025-07-13 16:10 | disposition home or self-care (01) ==
LOC: ER 10:35
PROVIDERS: Physician Assistant
DX: R10.13 Epigastric pain (principal); R10.A3 Flank pain, bilateral; R11.2 Nausea with vomiting, unspecified; K44.9 Diaphragmatic hernia without obstruction or gangrene; E10.9 Type 1 diabetes mellitus without complications; J45.909 Unspecified asthma, uncomplicated; F17.210 Nicotine dependence, cigarettes, uncomplicated; Z88.5 Allergy status to narcotic agent; Z88.8 Allergy status to other drugs, medicaments and biological substances; Z91.030 Bee allergy status; Z79.4 Long term (current) use of insulin; Z79.899 Other long term (current) drug therapy
CPT/HCPCS: 71046; 74177; 80053; 81003; 82010; 82947; 83690; 85025; 87637; 93005; 93010; 96374-59; 96375; 99284-25; A9270; J1630; J2470; J7030; Q9967